=== PATIENT | female | born 1950 | race Caucasian/White ===

== ENCOUNTER 2020-03-26 17:54 | Inpatient (IN) | payer MEDICARE, OTHER ==
[~2020-03-26] VITALS: Ht 160 cm; Wt 52.2 kg
[2020-03-26] MEDS ORDERED: ONDANSETRON HCL INJ 2MG/ML 2ML 2 MG/ML VIAL IV STA (18:15)
[2020-03-26] MEDS ORDERED: DIATRIZOATE MEGL/DIATRIZOA SOD 30 ML BTL PO ONE (18:33)
[2020-03-26] MEDS ORDERED: PIPER-TAZ 3.375 GM 50 ML IV STA ×2 (19:13→20:53)
--- NOTE | 2020-03-26 19:17 | Emergency Department Note ---
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 Any updates have been documented here. Past Medical History Recent Fever: No Clinical Suspicion of Infectio: No New/Unexplained Change in Ment: No Past Medical History: Hypertension, Diabetes, COPD, CHF, MO, CAD, Anxiety, Depression, GERD, Hyperlipedemia, Chronic Kidney Disease, Osteoarthritis Other Surgery: UNKNOWN SURGICAL HISTORY Social History Smoking Cessation: Never Smoker Alcohol Use: None Any Illegal Drug Use: No Other Last Tetanus: UTD Review of Systems Review of Systems Constitutional: Reports weakness EENTM: Reports no symptoms Cardiovascular: Reports no symptoms Respiratory: Reports no symptoms Gastrointestinal: Reports nausea, Reports vomiting Genitourinary: Reports no symptoms Musculoskeletal: Reports no symptoms Integumentary: Reports no symptoms Neurological: Reports no symptoms Psychological: Reports no symptoms Endocrine: Reports no symptoms Hematological/Lymphatic: Reports no symptoms Physical Exam Related Data Allergies: Coded Allergies: Iodine and Iodide Containing Produc (Verified Allergy, Unknown, 03/26/20) gentamicin (Verified Allergy, Unknown, 03/26/20) shellfish derived (Verified Allergy, Unknown, 03/26/20) Triage Vital Signs Vital Signs Date Time Temp Pulse Resp B/P (MAP) Pulse Ox O2 Delivery O2 Flow Rate FiO2 03/26/20 18:06 98.6 129 16 117/72 100 Physical Exam CONSTITUTIONAL Constitutional: Present cachectic, Present ill appearing HENT HENT: Present mucosae dry HENT L/R: Present left ext ear normal, Present right ext ear normal EYES Eyes: Reports PERRL, Reports conjunctivae normal NECK Neck: Present ROM normal PULMONARY Pulmonary: Present effort normal, Present breath sounds normal CARDIOVASCULAR Cardiovascular: Present heart sounds normal, Present tachycardia GASTROINTESTINAL Abdominal: Present soft, Present nontender, Present bowel sounds normal GENITOURINARY Genitourinary: Present exam deferred SKIN Skin: Present warm, Present dry MUSCULOSKELETAL Musculoskeletal: Present ROM normal NEUROLOGICAL Neurological: Present alert, Present oriented x 3, Present no gross motor or sensory deficits PSYCHOLOGICAL Psychological: Present mood/affect normal, Present judgement normal Results Laboratory Lab results reviewed: Yes Laboratory comments Laboratory Tests Test 03/26/20 19:55 03/26/20 19:36 03/26/20 19:33 03/26/20 19:30 Lactic Acid Level 1.2 mmol/L (0.5-2.0) Urine Color Tracie (YELLOW) Urine Clarity Sl cloudy (CLEAR) Urine pH 5.5 (5 - 7) Urine Specific [place] 1.030 (1.010-1.025) Urine Protein 1+ (NEGATIVE) Urine Glucose (UA) Negative (NEGATIVE) Urine Ketones 2+ (NEGATIVE) Urine Blood Negative (NEGATIVE) Urine Nitrite Negative (NEGATIVE) Urine Bilirubin Large (NEGATIVE) Urine Urobilinogen 0.2 mg/dL (0.2 - 1) Urine Leukocyte Esterase Trace (NEGATIVE) Urine RBC None /HPF (0-5) Urine WBC 0-5 /HPF (0-5) Urine Epithelial Cells Rare /LPF (NONE) Urine Bacteria Many /HPF (NONE) White Blood Count 9.80 x10e3/uL (4.8-10.8) Red Blood Count 4.80 x10e6/uL (3.6-5.1) Hemoglobin 12.2 g/dL (12.0-16.0) Hematocrit 39.6 % (34.2-44.1) Mean Corpuscular Volume 82.5 fL (81-99) Mean Corpuscular Hemoglobin 25.4 pg (28-32) Mean Corpuscular Hemoglobin Concent 30.8 g/dL (31-35) Red Cell Distribution Width 17.3 % (11.7-14.4) Platelet Count 583 x10e3/uL (140-360) Neutrophils (%) (Auto) 75.2 % (38.7-80.0) Lymphocytes (%) (Auto) 15.7 % (18.0-39.1) Monocytes (%) (Auto) 7.8 % (4.4-11.3) Eosinophils (%) (Auto) 0.3 % (0.0-6.0) Basophils (%) (Auto) 0.6 % (0.0-1.0) Neutrophils # (Auto) 7.4 (2.1-6.9) Lymphocytes # (Auto) 1.5 (1.0-3.2) Monocytes # (Auto) 0.8 (0.2-0.8) Eosinophils # (Auto) 0.0 (0.0-0.4) Basophils # (Auto) 0.1 (0.0-0.1) Absolute Immature Granulocyte (auto 0.04 x10e3/uL (0-0.1) Sodium Level 142 mmol/L (136-145) Potassium Level 3.8 mmol/L (3.5-5.1) Chloride Level 103 mmol/L (98-107) Carbon Dioxide Level 18 mmol/L (22-29) Anion Gap 24.8 mmol/L (8-16) Blood Urea Nitrogen 30 mg/dL (7-26) Creatinine 1.39 mg/dL (0.57-1.11) Estimat Glomerular Filtration Rate 37 ML/MIN (60-) BUN/Creatinine Ratio 22 (6-25) Glucose Level 147 mg/dL (74-118) Calcium Level 10.6 mg/dL (8.4-10.2) Total Bilirubin 0.3 mg/dL (0.2-1.2) Aspartate Amino Transf (AST/SGOT) 14 IU/L (5-34) Alanine Aminotransferase (ALT/SGPT) 7 IU/L (0-55) Alkaline Phosphatase 119 IU/L (40-150) Creatine Kinase 15 IU/L (29-168) Creatine Kinase MB 2.00 ng/mL (0-5.0) Troponin I 0.137 ng/mL (0-0.300) Total Protein 7.7 g/dL (6.5-8.1) Albumin 2.9 g/dL (3.5-5.0) Globulin 4.8 g/dL (2.3-3.5) Albumin/Globulin Ratio 0.6 (0.8-2.0) Lipase 7 U/L (8-78) B-Type Natriuretic Peptide 825.6 pg/mL (0-100) Test 03/26/20 19:26 Imaging Imaging results reviewed: Yes [facility] [address] Patient Name: JOVITA BAXTER MR #: [id number] : 1950 Age/Sex: 69/F Req #: [id number] Adm Physician: Ordered by: FEI BULLARD DO Report #: [id number] Location: ER Room/Bed: Procedure: [id number] DX/CHEST SINGLE (PORTABLE) Exam Date: 03/26/20 Exam Time: 2100 REPORT STATUS: Signed EXAMINATION: CHEST SINGLE (PORTABLE) INDICATION: , Nausea, vomiting COMPARISON: None FINDINGS: TUBES and LINES: External electronic devices and leads project over the mid to upper chest. LUNGS: Normal lung volumes. Lungs are clear. Prominent central pulmonary vasculature. PLEURA: No pleural effusion or pneumothorax. HEART AND MEDIASTINUM: Cardiac size is mildly enlarged. Aortic calcifications. BONES AND SOFT TISSUES: No acute osseous lesion. Soft tissues are unremarkable. Degenerative changes. UPPER ABDOMEN: No free air under the diaphragm. IMPRESSION: Mild cardiomegaly and pulmonary vascular congestion. Signed by: Maximiliano Moore DO on 03/26/2020 10:37 PM Dictated By: MAXIMILIANO MOORE DO 36 Transcribed By: JAYSON on 03/26/202236 COPY TO: FEI BULLARD DO~ Procedures 12 Lead ECG Interpretation ECG Interpretation : ECG: ECG 1 [employer]: Interpreted by ED physician Date: Mar 26, 2020 Time: 19:25 Prior ECG tracings: reviewed Rhythm: sinus tachycardia Rate: tachycardia BPM: 120 Conduction: intraventricular conduction delay ST segments normal: Yes T waves normal: Yes Clinical Impression: abnormal ECG Critical Care Time Total Critical Care Time (min): 31 Critcal care necessary due to: cardiac failure Critcal care time spent by me: discussion w consultants, evaluation patient response to tx, examination of patient, order/review laboratory studies, re- evaluation of patient condition, review of old charts Assessment & Plan Medical Decision Making MDM 69 yof brought from [facility] for evaluation of intractable n/v . Patient noted to have a Life Vest. Labs UA reviewed for infectious etiology of symptoms and weakness with possible electrolyte abnormalities. Cardiology consulted for wide complex tachycardia which may be from patient's volume depletion. Plan to admit to the IMCU for monitoring and gentle hydration Reassessment Reassessment time: 19:53 Reassessment Reviewed EKG with Dr Jose Drake. EKG LBBB with Wide Complex Tachycardia. No acute cardio intervention needed at this time Assessment & Plan Final Impression: (1) Intractable nausea and vomiting (2) Dehydration (3) UTI (urinary tract infection) (4) Wide-complex tachycardia Depart Disposition: ADMITTED Last Vital Signs Date Time Temp Pulse Resp B/P (MAP) Pulse Ox O2 Delivery O2 Flow Rate FiO2 03/26/20 18:06 98.6 129 16 117/72 100 Medications in the ED Ondansetron HCl 4 mg NOW STAT IV ; Start 03/26/20 at 18:15; Stop 03/26/20 at 18:16; Status UNV Diatrizoate Meglum/ Diatrizoate Sod 30 ml STK-MED ONCE PO ; Start 03/26/20 at 18:33; Stop 03/26/20 at 18:28; Status DC ELISABET SPIVEY 19, 2020 19:17
[2020-03-26 19:55] LABS: BASOPHILS # (AUTO) 0.1 (0.0-0.1); BASOPHILS % 0.6 % (0.0-1.0); EOSINOPHILS % 0.3 % (0.0-6.0); HEMATOCRIT 39.6 % (34.2-44.1); HEMOGLOBIN 12.2 g/dL (12.0-16.0); LYMPHOCYTES # (AUTO) 1.5 (1.0-3.2); LYMPHOCYTES % 15.7 % (18.0-39.1); MEAN CORPUSCULAR HEMOGLOBIN 25.4 pg (28-32); MEAN CORPUSCULAR HGB CONC 30.8 g/dL (31-35); MEAN CORPUSCULAR VOLUME 82.5 fL (81-99); MONOCYTES # (AUTO) 0.8 (0.2-0.8); MONOCYTES % 7.8 % (4.4-11.3); NEUTROPHILS # (AUTO) 7.4 (2.1-6.9); NEUTROPHILS % 75.2 % (38.7-80.0); PLATELET COUNT 583 x10e3/uL (140-360); RED CELL DISTRIBUTION WIDTH 17.3 % (11.7-14.4)
[2020-03-26] MEDS ORDERED: PIPER-TAZ 3.375 GM 50 ML ONE (20:04)
[2020-03-26 20:05] LABS: CLARITY,URINE SL CLOUDY (CLEAR); COLOR,URINE AMBER (YELLOW)
[2020-03-26 20:06] LABS: BILIRUBIN,URINE LARGE (NEGATIVE); KETONES,URINE 2+ (NEGATIVE); LEUKOCYTE ESTERASE ,URINE TRACE (NEGATIVE); NITRITE,URINE NEGATIVE (NEGATIVE); PROTEIN,URINE DIPSTICK 1+ (NEGATIVE); URINE UROBILINOGEN 0.2 mg/dL (0.2 - 1)
[2020-03-26 20:15] LABS: ALBUMIN 2.9 g/dL (3.5-5.0); ALBUMIN/GLOBULIN RATIO 0.6 (0.8-2.0); ANION GAP 24.8 mmol/L (8-16); CALCIUM 10.6 mg/dL (8.4-10.2); CREATININE, SERUM 1.39 mg/dL (0.57-1.11); POTASSIUM 3.8 mmol/L (3.5-5.1)
[2020-03-26 20:46] LABS: BACTERIA,URINE MANY /HPF; EPITHELIAL CELLS,URINE RARE /LPF; WBC,URINE (MAN) 0-5 /HPF (0-5)
--- NOTE | 2020-03-26 22:07 | NUR ---
[employer] Life Vest contacted at this time and able to reset life vest with assistance.
--- NOTE | 2020-03-26 22:34 | NUR ---
Attempted to call the [facility] 3 times without answer. Patient has no extra battery for current life vest.
--- NOTE | 2020-03-26 22:42 | NUR ---
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
--- NOTE | 2020-03-26 22:49 | Diagnostic Imaging Report ---
EXAMINATION: CHEST SINGLE (PORTABLE) INDICATION: , Nausea, vomiting COMPARISON: None FINDINGS: TUBES and LINES: External electronic devices and leads project over the mid to upper chest. LUNGS: Normal lung volumes. Lungs are clear. Prominent central pulmonary vasculature. PLEURA: No pleural effusion or pneumothorax. HEART AND MEDIASTINUM: Cardiac size is mildly enlarged. Aortic calcifications. BONES AND SOFT TISSUES: No acute osseous lesion. Soft tissues are unremarkable. Degenerative changes. UPPER ABDOMEN: No free air under the diaphragm. IMPRESSION: Mild cardiomegaly and pulmonary vascular congestion. Signed by: Maximiliano Moore DO on 03/26/2020 10:37 PM
--- NOTE | 2020-03-26 22:50 | NUR ---
Unable to obtain emergency contact information at this time.
[2020-03-26] MEDS ORDERED: SODIUM CHLORIDE 0.9% 1000ML 1,000 ML IV SCH (23:30)
[2020-03-26] MEDS ORDERED: SODIUM CHLORIDE 0.9% 1000ML 1,000 ML IV STA (23:41)
--- NOTE | 2020-03-26 23:47 | NUR ---
Codey Rosales ()- [phone] Maximiliano Rosales (Son)- [phone]
[2020-03-27] VITALS (9 sets, daily range): BP systolic 118–144; BP diastolic 65–85
[2020-03-27 06:57] LABS: BASOPHILS # (AUTO) 0.1 (0.0-0.1); BASOPHILS % 0.7 % (0.0-1.0); EOSINOPHILS % 0.3 % (0.0-6.0); HEMATOCRIT 37.4 % (34.2-44.1); HEMOGLOBIN 11.5 g/dL (12.0-16.0); LYMPHOCYTES # (AUTO) 1.4 (1.0-3.2); LYMPHOCYTES % 15.8 % (18.0-39.1); MEAN CORPUSCULAR HEMOGLOBIN 25.3 pg (28-32); MEAN CORPUSCULAR HGB CONC 30.7 g/dL (31-35); MEAN CORPUSCULAR VOLUME 82.4 fL (81-99); MONOCYTES # (AUTO) 0.9 (0.2-0.8); MONOCYTES % 9.5 % (4.4-11.3); NEUTROPHILS # (AUTO) 6.7 (2.1-6.9); NEUTROPHILS % 73.4 % (38.7-80.0); PLATELET COUNT 528 x10e3/uL (140-360); RED BLOOD COUNT 4.54 x10e6/uL (3.6-5.1); RED CELL DISTRIBUTION WIDTH 17.4 % (11.7-14.4)
[2020-03-27 07:22] LABS: ALBUMIN 2.6 g/dL (3.5-5.0); ALBUMIN/GLOBULIN RATIO 0.6 (0.8-2.0); ANION GAP 20.9 mmol/L (8-16); CALCIUM 10.1 mg/dL (8.4-10.2); CREATININE, SERUM 1.3 mg/dL (0.57-1.11); POTASSIUM 3.9 mmol/L (3.5-5.1)
--- NOTE | 2020-03-27 08:00 | NUR ---
Dr. Yu rounding to see patient, made aware patient has been vomiting, and has not had a bowel movement in days suggested to Dr. Yu perhaps patient might need to be NPO since she is not tolerating water or juice, and has constipation per Dr. Yu patient is ok for patient to have clear liquid diet for now.
[2020-03-27] MEDS ORDERED: DEXTROSE 50% SYRINGE 50 ML IV PRN (09:15)
[2020-03-27] MEDS ORDERED: INSULIN GLARGINE 100 UNITS/ML VIAL SQ SCH (09:30)
[2020-03-27] MEDS: CLOPIDOGREL BISULFATE 75 MG TAB PO SCH (09:37)
[2020-03-27] MEDS: SODIUM CHLORIDE 0.9% 1000ML 1,000 ML IV SCH ×2 (09:37→21:49)
[2020-03-27] MEDS: PANTOPRAZOLE 40 MG 10ML VIAL IV SCH (09:37)
[2020-03-27] MEDS: SENNA-S TABLET PO SCH ×2 (09:38→18:12)
[2020-03-27] MEDS: CEFEPIME 1GM/NS 0.9% 50 ML 50 ML IV SCH ×2 (09:39→21:02)
[2020-03-27] MEDS: METOPROLOL SUCCINATE 25 MG TAB XL PO SCH (09:45)
[2020-03-27] MEDS: ESCITALOPRAM OXALATE 10 MG TAB PO SCH (09:53)
[2020-03-27] MEDS ORDERED: BISACODYL 10 MG SUPP PR ONE (10:00)
[2020-03-27] MEDS: APIXAB 2.5 MG TABLET PO SCH ×2 (10:00→18:12)
--- NOTE | 2020-03-27 10:33 | History and Physical ---
CHIEF COMPLAINT: "I have been very weak and cold." HISTORY OF PRESENT ILLNESS: This is a 69-year-old white woman, who was transferred from a local assisted facility, namely the [facility] because of generalized weakness coupled with nausea and vomiting. In the emergency room, the patient was found to have a urinary tract infection. The patient also is diabetic and has a history of diabetic gastroparesis as well as chronic constipation. In fact, the patient underwent abdominal x-ray on March 25, 2020, at the skilled facility that revealed mild increased feces throughout her colon. As previously stated in the emergency room, the patient had urinalysis done, which revealed many bacteria, but only 0-5 white blood cells per high-power field. The patient's white blood cell count in the emergency room was 9800 with 75% segmented neutrophils. The patient's BUN and creatinine in the emergency room were 30 and 1.39 respectively. The patient's B-type natriuretic peptide level was 825, which is elevated. The patient's troponin I was normal at 0.137. The patient's lipase was normal. Chest film performed in the emergency room did reveal mild cardiomegaly with pulmonary vascular congestion. The patient denies any shortness of breath, or cough. Her main complaint is constipation as well as nausea and vomiting. However, this morning, the patient is adamant about drinking liquids, even though she is still vomiting. REVIEW OF SYSTEMS: GENERAL: The patient states in the last 6 weeks, she has lost 25 pounds. Complain shaking chills past few days. Denies any fever. States that she has become globally weak in the last few days. The patient states she has not ambulated since 2017. HEENT: No headaches. No vision changes. CARDIOVASCULAR/RESPIRATORY: The patient states she has asthma. Denies any chest pain, shortness of breath, or cough. GI: Complains of nausea, vomiting for at least a week. She has chronic constipation. Denies any melena or hematochezia. : Denies any UTI symptoms, but she states that her urine has been darker lately and malodorous. The patient states she is incontinent. NEUROMUSCULAR: She has been predominantly bed-bound, wheelchair-bound since 2017. She has chronic wounds in her bilateral heels. ALLERGIES: 1. IODINE. 2. GENTAMICIN. FAMILY HISTORY: No family history of diabetes mellitus. SOCIAL HISTORY: The patient states she is , but currently she is staying at a local assisted facility, namely the [facility]. No history of tobacco or alcohol use. PAST MEDICAL HISTORY: 1. Type 2 diabetes mellitus. 2. Diabetic gastroparesis. 3. Stage 3 chronic kidney disease. 4. Chronic bronchitis. 5. Hypertensive heart disease. 6. Chronic diastolic congestive heart failure. 7. Depression. 8. Anxiety disorder. 9. GERD. 10. Dyslipidemia. 11. Generalized osteoarthritis. 12. Chronic bilateral heel ulcers. 13. Peripheral artery disease. PAST SURGICAL HISTORY: 1. Umbilical hernia repair. 2. Right second toe amputation. 3. Left first and second toe amputation. 4. History of arterial stent placement in the bilateral lower extremities. HOME MEDICATIONS: 1. Apixaban 2.5 mg b.i.d. 2. Bisacodyl suppository 1 daily as needed for constipation. 3. Budesonide nebulized treatments twice a day. 4. Clonazepam 0.5 mg once daily as needed for severe anxiety. 5. Clopidogrel 75 mg daily. 6. Depakote 125 mg b.i.d. 7. Vitamin D two 50,000 units once a week. 8. Famotidine 20 mg once daily. 9. Gabapentin 100 mg b.i.d. 10. Humalog insulin sliding scale. 11. Mirtazapine 15 mg at bedtime. 12. Ipratropium/albuterol nebulized treatments twice a day as needed for shortness of breath or wheezing. 13. Lactulose 20 g every 6 hours as needed for constipation. 14. Levalbuterol nebulized treatments every 6 hours as needed for breakthrough shortness of breath or wheezing. 15. Lexapro 10 mg daily. 16. Loratadine 10 mg daily. 17. Melatonin 5 mg at bedtime p.r.n. insomnia. 18. Metoprolol succinate 12.5 mg daily. 19. Midodrine 5 mg daily as needed for hypotension. 20. Multivitamin once daily. 21. Pepto-Bismol one dose every 6 hours as needed for nausea and vomiting. 22. Phenergan 12.5 mg intramuscular every 8 hours for severe nausea and vomiting. 23. Protonix 40 mg daily. 24. Senna 8.6 mg every night as needed for constipation. 25. Spironolactone 12.5 mg daily. 26. Tramadol 50 mg every 12 hours p.r.n. nausea and vomiting. 27. Acetaminophen 650 mg every 4 hours p.r.n. pain. 28. Vitamin C 500 mg daily. 29. Zofran 8 mg one every 6 hours nausea and vomiting. PHYSICAL EXAMINATION: GENERAL: She is awake, alert. She looks chronically ill. She also looks very weak. She is oriented to herself and place, not time. She does seem to get confused easily. She does look depressed. She has a flat affect. She is very pleasant and cooperative on exam. Does not appear to be any obvious pain. VITAL SIGNS: Blood pressure is 126/78, pulse 104 (sinus rhythm), respiratory rate is 22, oxygen saturation 98% on room air, and temperature 98.1, height 5 feet 3 inches, weight 115 pounds, BMI 20 (patient states she weighed 140 pounds 6 weeks ago). INTEGUMENT: Skin is warm and dry. She is pale. No jaundice or diaphoresis. The patient has right heel unstageable eschar wound. The left heel has an ulcer that has adequate granulation tissue and does not appear to be infected. HEENT: Anicteric sclerae with dry mucous membranes. The patient is edentulous. NECK: Supple. No evidence of jugular venous distention. CARDIOVASCULAR: Distant heart sounds. Tachycardic rate with regular rhythm. The patient has S3 gallop. LUNGS: No rales. No rhonchi or wheezes. ABDOMEN: Soft. Normal bowel sounds. Nontender. EXTREMITIES: No edema in legs. The patient has bony deformities over feet consistent with diabetic osteopathy. She has evidence of toe amputations bilaterally. She has wounds in the bilateral heels as previously stated. Unstageable eschar covered wound in the right heel. Has a left heel ulcer that has adequate granulation tissue. No obvious purulent sloughing or fibrinous tissue is appreciated. NEUROLOGIC: She is bedbound. No gross deficits. She does not have decreased pinprick sensation in her feet. DIAGNOSES: 1. Sepsis secondary to urinary tract infection, likely. 2. Ghcmo-hl-lzhxtrt renal insufficiency. 3. Type 2 diabetes mellitus. 4. Diabetic gastroparesis. 5. Chronic constipation. 6. Orvin-fe-lubaupz diastolic heart failure. 7. Paroxysmal atrial fibrillation. PLAN: 1. Gentle intravenous fluids. 2. Order echocardiogram and cardiac enzymes. 3. Follow urine blood cultures. 4. Start intravenous cefepime for the patient's urinary tract infection. 5. Glucose control. 6. Monitor electrolytes and renal function. 7. Restart apixaban since the patient has paroxysmal atrial fibrillation. 8. Restart clopidogrel since the patient has peripheral artery disease and likely coronary artery disease. 9. Rule out myocardial infarction. 10. Wound care to the patient's heels. 11. We will restart metoprolol succinate for heart rate control and to treat her diastolic heart failure. 12. We will start laxatives that include senna by mouth twice a day and Dulcolax suppository since the patient has chronic constipation and significant amount of stool burden in her colon. I spent 75 minutes in the care of this IMCU patient. MD DARIUS Campos/MIHAELA /[id number] MTDD
[2020-03-27 10:43] LABS: MAGNESIUM 1.7 MG/DL (1.3-2.1)
[2020-03-27] MEDS: INSULIN LISPRO 100 UNIT/1 ML 3ML VIAL SQ SCH ×3 (11:30→20:52)
[2020-03-27] MEDS: PROMETHAZINE 12.5MG/ NACL 0.9% 12.5 MG/50 ML BAG IV PRN ×2 (13:20→19:04)
[2020-03-27] MEDS ORDERED: DEPAKOTE125 MG PO (14:14)
[2020-03-27] MEDS ORDERED: VITAMIN D250 MC1 PO (14:14)
[2020-03-27] MEDS ORDERED: BUDESONIDE0.5 MG/2 M NEB (14:14)
[2020-03-27] MEDS ORDERED: CLONAZEPAM0.5 MG PO (14:14)
[2020-03-27] MEDS ORDERED: FAMOTIDINE20 MG PO (14:14)
[2020-03-27] MEDS ORDERED: DULCOLAX SUPP10 MG RC (14:14)
[2020-03-27] MEDS ORDERED: PLAVIX75 MG PO (14:14)
[2020-03-27] MEDS ORDERED: ELIQUIS2.5 MG PO (14:14)
[2020-03-27] MEDS ORDERED: PEPTO-BISM262 MG/15 PO (14:40)
[2020-03-27] MEDS ORDERED: LEVALBUTER0.63 MG/3 NEB (14:40)
[2020-03-27] MEDS ORDERED: MELATONIN3 MG PO (14:40)
[2020-03-27] MEDS ORDERED: MULTI-VITAMIN1 EACH (14:40)
[2020-03-27] MEDS ORDERED: LORATADINE10 MG PO (14:40)
[2020-03-27] MEDS ORDERED: METOPROLOL SUCC25 MG PO (14:40)
[2020-03-27] MEDS ORDERED: GABAPENTIN100 MG PO (14:40)
[2020-03-27] MEDS ORDERED: Ergocalciferol PO (14:40)
[2020-03-27] MEDS ORDERED: LEXAPRO5 MG PO (14:40)
[2020-03-27] MEDS ORDERED: PROMETHAZI25 MG/1 ML IM (14:40)
[2020-03-27] MEDS ORDERED: LEXAPRO10 MG PO (14:40)
[2020-03-27] MEDS ORDERED: LACTULOSE20 GM/30 M PO (14:40)
[2020-03-27] MEDS ORDERED: MIRTAZAPINE15 MG PO (14:40)
[2020-03-27] MEDS ORDERED: MIDODRINE HCL5 MG PO (14:40)
[2020-03-27] MEDS ORDERED: IPRAT-ALBUT 0.5-3 ML INH (14:56)
[2020-03-27] MEDS ORDERED: HUMALOG100 UNIT/3 (15:02)
[2020-03-27] MEDS ORDERED: APIXAB 2.5 MG TABLET PO SCH (17:00)
--- NOTE | 2020-03-27 19:31 | NUR ---
Called Dr. Yu made aware patient did not void but had approximately 1200 emesis throughout the day, patient is on IV fluids @100cc per hour. received orders to insert Gaytan catheter for output measurements
--- NOTE | 2020-03-27 19:57 | NUR ---
insert Gaytan catheter size 16 Fr with 10 cc water balloon.
[2020-03-27] MEDS: INSULIN GLARGINE 100 UNITS/ML VIAL SQ SCH (20:53)
[2020-03-27] MEDS: MIRTAZAPINE 15 MG TAB PO SCH (21:02)
[2020-03-28] VITALS (7 sets, daily range): BP systolic 120–146; BP diastolic 65–76
[2020-03-28 06:05] LABS: BASOPHILS # (AUTO) 0.1 (0.0-0.1); BASOPHILS % 0.7 % (0.0-1.0); EOSINOPHILS # (AUTO) 0.1 (0.0-0.4); EOSINOPHILS % 1.8 % (0.0-6.0); HEMATOCRIT 36.1 % (34.2-44.1); LYMPHOCYTES # (AUTO) 1.1 (1.0-3.2); MEAN CORPUSCULAR HEMOGLOBIN 25.8 pg (28-32); MEAN CORPUSCULAR HGB CONC 30.5 g/dL (31-35); MEAN CORPUSCULAR VOLUME 84.7 fL (81-99); MONOCYTES # (AUTO) 0.7 (0.2-0.8); MONOCYTES % 10.6 % (4.4-11.3); NEUTROPHILS # (AUTO) 4.8 (2.1-6.9); NEUTROPHILS % 70.6 % (38.7-80.0); PLATELET COUNT 452 x10e3/uL (140-360); RED BLOOD COUNT 4.26 x10e6/uL (3.6-5.1); RED CELL DISTRIBUTION WIDTH 17.3 % (11.7-14.4)
[2020-03-28] MEDS: MORPHINE SULFATE 2 MG/ML SYR 1ML IV PRN ×2 (06:10→20:40)
[2020-03-28 06:27] LABS: ALBUMIN 2.4 g/dL (3.5-5.0); ALBUMIN/GLOBULIN RATIO 0.6 (0.8-2.0); ALKALINE PHOSPHATASE 81 IU/L (40-150); ANION GAP 15.4 mmol/L (8-16); BLOOD UREA NITROGEN 26 mg/dL (7-26); BUN/CREATININE RATIO 26 (6-25); CALCIUM 9.3 mg/dL (8.4-10.2); CARBON DIOXIDE 21 mmol/L (22-29); CHLORIDE 114 mmol/L (98-107); CREATININE, SERUM 0.99 mg/dL (0.57-1.11); EST GLOMERULAR FILTRATION RATE 55 ML/MIN (60-); GLUCOSE 80 mg/dL (74-118); POTASSIUM 3.4 mmol/L (3.5-5.1); SODIUM 147 mmol/L (136-145)
[2020-03-28 06:32] LABS: ALANINE AMINOTRANSFERASE < 6 IU/L (0-55)
[2020-03-28] MEDS: SODIUM CHLORIDE 0.9% 1000ML 1,000 ML IV SCH (07:30)
[2020-03-28] MEDS: INSULIN LISPRO 100 UNIT/1 ML 3ML VIAL SQ SCH ×4 (07:30→21:00)
[2020-03-28] MEDS: ONDANSETRON HCL INJ 2MG/ML 2ML 2 MG/ML VIAL IV PRN (07:33)
[2020-03-28] MEDS ORDERED: POTASSIUM CHLORIDE 20MEQ/100ML 100 ML IV ONE ×2 (08:30→15:15)
[2020-03-28] MEDS ORDERED: ESCITALOPRAM OXALATE 10 MG TAB PO SCH (09:00)
[2020-03-28] MEDS: ESCITALOPRAM OXALATE 10 MG TAB PO SCH (09:00)
[2020-03-28] MEDS: PANTOPRAZOLE 40 MG 10ML VIAL IV SCH ×3 (09:13→20:40)
[2020-03-28] MEDS: APIXAB 2.5 MG TABLET PO SCH ×2 (09:14→19:36)
[2020-03-28] MEDS: PROMETHAZINE 12.5MG/ NACL 0.9% 12.5 MG/50 ML BAG IV PRN (09:30)
[2020-03-28] MEDS: CEFEPIME 1GM/NS 0.9% 50 ML 50 ML IV SCH ×2 (09:31→21:43)
[2020-03-28] MEDS: METOPROLOL SUCCINATE 25 MG TAB XL PO SCH (09:33)
[2020-03-28] MEDS ORDERED: POTASSIUM CHLORIDE 10MEQ EA PO ONE (10:30)
--- NOTE | 2020-03-28 11:19 | Diagnostic Imaging Report ---
EXAMINATION: CHEST SINGLE (PORTABLE) COMPARISON: Chest x-ray 03/26/2020 INDICATION: ^COPD and CHF ^[id number] ^1040 ^Y DISCUSSION: Frontal view of the chest obtained at 1047 hours. HEART AND MEDIASTINUM: The heart is top normal in size. LINES: Multiple cardiac medical devices overlie the left hemithorax. External cardiac leads overlie the right chest. LUNGS/PLEURA: Diffuse hyperinflation. Poor visualization of the left diaphragm. No interstitial edema or vascular congestion. No large effusions. No pneumothorax. BONES AND SOFT TISSUES: The bones are diffusely demineralized. The soft tissues are normal. IMPRESSION: 1. Retrocardiac airspace opacity suggestive of atelectasis or infiltrate. Small effusion cannot be excluded. No evidence of CHF. 2. Pulmonary hyperinflation suggestive of COPD. Signed by: Dr. Virgilio Jackson MD on 03/28/2020 11:15 AM
--- NOTE | 2020-03-28 11:20 | Diagnostic Imaging Report ---
Abdomen/KUB INDICATION: ^fecal impaction ^[id number] ^1040 ^Y COMPARISON: None. FINDINGS: Portable, supine image obtained at 1047 hours. Medical Devices: External cardiac devices in the lower chest Bowel: Unremarkable bowel gas pattern. No dilated bowel loops. Moderate burden of stool in the right colon and rectum. No pneumatosis. Free air: None Abdominal calcifications: None Organomegaly: None Lung bases: Poor visualization of the left diaphragm. Right lung base is clear. Bones: Diffuse demineralization. Degenerative changes of the spine. Trace degenerative changes of the hips. IMPRESSION: Moderate stool burden in the large bowel without evidence of obstruction. Signed by: Dr. Virgilio Jackson MD on 03/28/2020 11:17 AM
[2020-03-28] MEDS: METOCLOPRAMIDE HCL 10 MG/2ML VIAL IV SCH ×4 (11:31→20:40)
--- NOTE | 2020-03-28 11:36 | Progress Note ---
DATE: 03/28/2020 CHIEF COMPLAINT/HISTORY OF PRESENT ILLNESS: This is a 69-year-old white woman, whose primary treating diagnosis is urinary tract infection and acute on chronic renal insufficiency. The patient also has underlying type 2 diabetic gastroparesis, chronic constipation and paroxysmal atrial fibrillation. Moreover, she is experiencing acute on chronic systolic and diastolic heart failure. The patient denies any shortness of breath or chest pain. The patient states she does feel better today. She still has intermittent episodes of vomiting, but denies any nausea at this time. Blood work today revealed white blood cell count of 6800 with 70% segmented neutrophils. Hemoglobin 11 g/dL today. The patient's BUN and creatinine today is 26 and 0.99 respectively. The patient's potassium is 3.4, serum bicarb is 21. The patient had serial cardiac enzymes drawn in the last couple of days, namely troponin I and they have been negative. The patient's TSH was low at 0.033. Echocardiogram yesterday revealed LV EF less than 20%. REVIEW OF SYSTEMS: As per HPI. PHYSICAL EXAMINATION: GENERAL: She is more alert and interactive today. She still gets confused easily. She does not appear to be any distress. She is very distressed. She is very pleasant and cooperative on exam. VITAL SIGNS: Blood pressure is 134/68, pulse 94, it is regular, temp 97.2, respiratory rate 16, oxygen saturation 98% on room air. Height 5 feet 3 inches, weight 115 pounds, BMI 20. INTEGUMENT: Skin is warm and dry. She is slight pallor, but no jaundice or diaphoresis appreciated. HEENT: Anicteric sclerae. Moist mucous membranes. She is edentulous. NECK: Supple. No evidence of jugular venous distention. CARDIOVASCULAR: Distant heart sounds. Tachycardic rate with a regular rhythm. The patient has S3 gallop. She is wearing Life Vest. LUNGS: No rales. No rhonchi or wheezes. ABDOMEN: Soft. Normal bowel sounds, nontender. EXTREMITIES: No edema, but she has evidence of toe amputations bilaterally. The patient has unstageable eschar covered also on the right heel and has a left heel ulcer that has adequate granulation tissue. NEUROLOGIC: She is bedbound. No gross deficits appreciated. DIAGNOSES: 1. Urinary tract infection. 2. Acute on chronic renal insufficiency, resolving. 3. Type 2 diabetes mellitus. 4. Diabetic gastroparesis. 5. Chronic constipation. 6. Acute on chronic systolic/diastolic heart failure (EF less than 20%). 7. Paroxysmal atrial fibrillation. 8. Physical debility. PLAN: 1. We will discontinue intravenous fluids. 2. Wound care for heel wounds. 3. We will continue oral Eliquis for anticoagulation. 4. Continue antiemetics. 5. Continue laxatives for patient's constipation. 6. Start IV metoclopramide (prokinetic agent) for her gastroparesis. 7. Follow urine and blood cultures. 8. Continue intravenous antibiotics for patient's urinary tract infection. 9. Blood glucose control. I spent 30 minutes in the care of this patient. MD DARIUS Campos/MIHAELA /[id number] MTDD
--- NOTE | 2020-03-28 12:00 | NUR ---
Pt with frequent small amount emesis. Issues taking po medications with refusal and emesis. Dr Yu has been notified. Orders received.
[2020-03-28] MEDS: POTASSIUM CHLORIDE 20MEQ/100ML 100 ML IV ONE ×2 (12:15→15:26)
[2020-03-28] MEDS: SENNA-S TABLET PO SCH ×2 (12:30→19:36)
--- NOTE | 2020-03-28 12:45 | NUR ---
Order to dc the telemetry, but Dr Yu has advised he does not want the telemetry discontinued. Cont the monitor car operator.
[2020-03-28] MEDS: CLOPIDOGREL BISULFATE 75 MG TAB PO SCH (14:48)
[2020-03-28] MEDS: INSULIN GLARGINE 100 UNITS/ML VIAL SQ SCH (21:00)
[2020-03-28] MEDS: MIRTAZAPINE 15 MG TAB PO SCH (21:00)
[2020-03-29] VITALS (8 sets, daily range): BP systolic 119–140; BP diastolic 66–76
--- NOTE | 2020-03-29 01:19 | Consultation ---
DATE OF CONSULTATION: 03/27/2020 Cardiology Consult Note REASON FOR CONSULT: CHF, atrial fibrillation, and tachycardia. CHIEF COMPLAINT: Could not be obtained due to altered mental status. HISTORY OF PRESENT ILLNESS: The patient is a 69-year-old female with history of coronary artery disease, status post [place] and chronic systolic CHF, currently wearing a LifeVest, who presents from her nursing facility with altered mental status, suspected infection and tachycardia. The patient is altered and unable to obtain a detailed history. REVIEW OF SYSTEMS: Could not be obtained. PAST MEDICAL HISTORY: As stated above. SOCIAL HISTORY: Does not smoke, drink, or abuse drugs per the medical records. FAMILY HISTORY: Noncontributory. OUTPATIENT MEDICATIONS: Reviewed. ALLERGIES: REVIEWED. OBJECTIVE: VITAL SIGNS: Temperature afebrile, pulse 107, respiratory rate 14, blood pressure 143/74, and saturating 99% on room air. GENERAL: Elderly female, in no acute distress. CARDIOVASCULAR: Regular rate and rhythm. No murmurs, rubs, or gallops. LUNGS: Coarse breath sounds bilaterally. ABDOMEN: Soft, nontender, and nondistended. NEURO AND PSYCH: Disoriented. INPATIENT MEDICATIONS: Reviewed. LABORATORY DATA: Reviewed. Troponin is negative. BNP is 825. Telemetry data reviewed shows left bundle branch block, sinus tachycardia. ASSESSMENT: 1. Coronary artery disease, status post myocardial infarction. 2. Chronic systolic congestive heart failure. 3. Wearing a LifeVest. 4. Sinus tachycardia. PLAN: Echocardiogram is pending. Continue telemetry monitoring. Continue LifeVest treatment of infection and nausea, vomiting per primary team, ruled out for acute [place] with serial troponins appears euvolemic by exam. We will continue to monitor volume status closely. Thank you for this consult. We will continue to follow. MD SHIRLEY Mcdaniel/MIHAELA /[id number]
--- NOTE | 2020-03-29 01:39 | Progress Note ---
DATE: 03/28/2020 Cardiology Progress Note SUBJECTIVE: No major events overnight. Appears a little more oriented today. OBJECTIVE: VITAL SIGNS: Temperature afebrile, pulse 94, respiratory rate 17, blood pressure 127/67, saturating 96% on room air. GENERAL: An elderly female, in no acute distress. CARDIOVASCULAR: Regular rate and rhythm. No murmurs, rubs, or gallops. LUNGS: Clear to auscultation bilaterally. ABDOMEN: Soft, nontender, nondistended. NEURO AND PSYCH: Alert and oriented. INPATIENT MEDICATIONS: Reviewed. LABORATORY DATA: Reviewed. Troponins negative. TELEMETRY DATA: Reviewed, normal sinus rhythm. Left bundle branch block. ASSESSMENT AND PLAN: 1. Chronic systolic congestive heart failure, ejection fraction of 20% to 25%. 2. Coronary artery disease, status post myocardial infarction. PLAN: Continue like this. Continue telemetry monitoring. Replete electrolytes to keep potassium above 4. We will continue to monitor volume status. Thank you for this consult. We will continue to follow. MD SHIRLEY Mcdaniel/REECEL /[id number]
[2020-03-29 05:26] LABS: BASOPHILS # (AUTO) 0.1 (0.0-0.1); BASOPHILS % 0.7 % (0.0-1.0); EOSINOPHILS # (AUTO) 0.1 (0.0-0.4); EOSINOPHILS % 1.4 % (0.0-6.0); HEMATOCRIT 38.8 % (34.2-44.1); HEMOGLOBIN 11.2 g/dL (12.0-16.0); LYMPHOCYTES # (AUTO) 1.3 (1.0-3.2); LYMPHOCYTES % 15.2 % (18.0-39.1); MEAN CORPUSCULAR HEMOGLOBIN 25.5 pg (28-32); MEAN CORPUSCULAR HGB CONC 28.9 g/dL (31-35); MEAN CORPUSCULAR VOLUME 88.2 fL (81-99); MONOCYTES # (AUTO) 0.8 (0.2-0.8); MONOCYTES % 9.1 % (4.4-11.3); NEUTROPHILS # (AUTO) 6.4 (2.1-6.9); NEUTROPHILS % 73.3 % (38.7-80.0); PLATELET COUNT 400 x10e3/uL (140-360); RED CELL DISTRIBUTION WIDTH 17.7 % (11.7-14.4)
[2020-03-29 05:35] LABS: ALBUMIN 2.4 g/dL (3.5-5.0); ALBUMIN/GLOBULIN RATIO 0.6 (0.8-2.0); ANION GAP 20.4 mmol/L (8-16); CALCIUM 9.6 mg/dL (8.4-10.2); CREATININE, SERUM 0.92 mg/dL (0.57-1.11); POTASSIUM 4.4 mmol/L (3.5-5.1)
--- NOTE | 2020-03-29 06:45 | NUR ---
patient condition through the shift was stable patient endorsed to next shift for continuity of care.
--- NOTE | 2020-03-29 07:00 | NUR ---
BEDSIDE SHIFT REPORT FROM DIRECT SERVICE PROVIDER, MATTIE RICE. PT DENIES NEEDS AT THIS TIME.
[2020-03-29] MEDS: INSULIN LISPRO 100 UNIT/1 ML 3ML VIAL SQ SCH ×4 (07:30→21:00)
[2020-03-29] MEDS: PANTOPRAZOLE 40 MG 10ML VIAL IV SCH ×2 (09:08→21:26)
[2020-03-29] MEDS: METOPROLOL SUCCINATE 25 MG TAB XL PO SCH (09:09)
[2020-03-29] MEDS: APIXAB 2.5 MG TABLET PO SCH ×2 (09:09→17:24)
[2020-03-29] MEDS: METOCLOPRAMIDE HCL 10 MG/2ML VIAL IV SCH ×3 (09:09→21:26)
[2020-03-29] MEDS: ESCITALOPRAM OXALATE 10 MG TAB PO SCH (09:09)
[2020-03-29] MEDS: CLOPIDOGREL BISULFATE 75 MG TAB PO SCH (09:09)
[2020-03-29] MEDS: SENNA-S TABLET PO SCH ×2 (09:09→17:24)
[2020-03-29] MEDS: CEFEPIME 1GM/NS 0.9% 50 ML 50 ML IV SCH (09:26)
[2020-03-29] MEDS: ONDANSETRON HCL INJ 2MG/ML 2ML 2 MG/ML VIAL IV PRN (10:19)
[2020-03-29] MEDS: MORPHINE SULFATE 2 MG/ML SYR 1ML IV PRN ×2 (10:19→16:10)
[2020-03-29] MEDS: DAPTOMYCIN 500mg 10ML 400 MG in SODIUM CHLORIDE 0.9% 100 ML IV SCH (12:11)
--- NOTE | 2020-03-29 12:25 | NUR ---
CONSULT CALLED IN TO HECTOR CEJA.,
--- NOTE | 2020-03-29 12:34 | NUR ---
PT IS FROM [facility], "LEIDA" CLARISSA STATES HE WANTS HER TO RETURN THERE WHEN READY, AND SIGNED CHOICE. FILED IN CHART FOR WHEN READY TO FAX CLINICALS.
--- NOTE | 2020-03-29 14:53 | Progress Note ---
DATE: 03/29/2020 Cardiology Progress Note SUBJECTIVE: The patient denies shortness of breath. She reports an episode of chest pain earlier today. OBJECTIVE: VITAL SIGNS: Temperature 97.7 degrees, pulse 96, respiratory rate 17, blood pressure 123/66, and oxygen saturation 99%. GENERAL: Thin, frail, elderly woman, in no acute distress. Awake and alert. LUNGS: Clear to auscultation bilaterally. No wheezes or crackles. CARDIOVASCULAR: Normal rate. Regular rhythm. No murmur. Normal S1 and S2. ABDOMEN: Soft and nontender. EXTREMITIES: No edema. CARDIAC MEDICATIONS: Apixaban 2.5 mg p.o. b.i.d., Plavix 75 mg p.o. daily, and metoprolol succinate 25 mg p.o. daily. LABORATORY DATA: WBC 8.75, hemoglobin 11.2, hematocrit 38.8, and platelets 400. Sodium 144, potassium 4.4, chloride 113, CO2 15, BUN 21, and creatinine 0.92. Telemetry was personally reviewed and interpreted, revealing normal sinus rhythm with nonsustained ventricular tachycardia. IMPRESSION: 1. Chronic systolic heart failure, left ventricular ejection fraction 20% to 25%. 2. Coronary artery disease, status post myocardial infarction. 3. Paroxysmal atrial fibrillation. 4. Urinary tract infection. 5. Sepsis secondary to above. 6. [id number]-[id number] kidney disease. 7. Diabetes mellitus complicated by diabetic gastroparesis. RECOMMENDATIONS: Monitor and replete electrolytes. Keep potassium above 4 and magnesium above 2. Monitor the patient on telemetry. Continue current cardiac medications. Monitor volume status closely. Antibiotics per primary service. Thank you for this consult. We will continue to follow. Connie Jane MD ABS/MODL /[id number]
--- NOTE | 2020-03-29 15:29 | NUR ---
DR. RAE CALLED FOR CONSULTATION.
--- NOTE | 2020-03-29 15:41 | NUR ---
INITIAL WOUND CARE NURSE CONSULTATION. 69 YEAR OLD FEMALE ADMITTED TO [facility] WITH DX OF DEHYDRATION, UTI AND INTRACTABLE N/V. HEAD TO TOE SKIN ASSESSMENT PERFORMED TODAY. PT PRESENTS WITH A 6.3X8.2X0.1CM UNSTAGEABLE PRESSURE ULCER TO RIGHT HEEL. 100% NECROTIC ESCHAR. LEFT HEEL PRESENTS WITH A 4.5X5X0.1CM STAGE IV PRESSURE ULCER.95% GRANULAR, 5% ESCHAR & PALPABLE BONE. THERE ARE NO OTHER AREAS OF CONCERN NOTED AT THIS TIME. NO S/S OF INFECTION. LABS: WBC: 8.75 ALB: 2.4 GLUCOSE: 132 MEDS: CEFEPIME IV. RECOMMENDATIONS: APPLY MAXORB AG TO RIGHT HEEL, COVER WITH 4X4 GAUZE AND KERLIX, CHANGE DRESSING DAILY. CLEAN LEFT HEEL WITH NS, APPLY PURACOL/FIBRACOL TO WOUND BED AND COVER WITH 4X4 GAUZE, KERLIX AND TAPE. REPOSITION PT EVERY 2 HOURS AND PRN. CONTINUE WITH BILATERAL HEEL PROTECTORS AND PILLOW SUSPENSIONS. CONTINUE WITH ALTERNATING LOW AIR LOSS MATTRESS. THANKS FOR THIS CONSULTATION. Addendum: 03/29/20 at 1552 by Kelly Ferreira RN Amended: Links added.
--- NOTE | 2020-03-29 17:34 | NUR ---
ALLERGIES: 1. IODINE. 2. GENTAMICIN. FAMILY HISTORY: No family history of diabetes mellitus. SOCIAL HISTORY: The patient states she is , but currently she is staying at a local shelter facility, namely the [facility]. No history of tobacco or alcohol use. PAST MEDICAL HISTORY: 1. Type 2 diabetes mellitus. 2. Diabetic gastroparesis. 3. Stage 3 chronic kidney disease. 4. Chronic bronchitis. 5. Hypertensive heart disease. 6. Chronic diastolic congestive heart failure. 7. Depression. 8. Anxiety disorder. 9. GERD. 10. Dyslipidemia. 11. Generalized osteoarthritis. 12. Chronic bilateral heel ulcers. 13. Peripheral artery disease. PAST SURGICAL HISTORY: 1. Umbilical hernia repair. 2. Right second toe amputation. 3. Left first and second toe amputation. 4. History of arterial stent placement in the bilateral lower extremities. HOME MEDICATIONS: 1. Apixaban 2.5 mg b.i.d. 2. Bisacodyl suppository 1 daily as needed for constipation. 3. Budesonide nebulized treatments twice a day. 4. Clonazepam 0.5 mg once daily as needed for severe anxiety. 5. Clopidogrel 75 mg daily. 6. Depakote 125 mg b.i.d. 7. Vitamin D two 50,000 units once a week. 8. Famotidine 20 mg once daily. 9. Gabapentin 100 mg b.i.d. 10. Humalog insulin sliding scale. 11. Mirtazapine 15 mg at bedtime. 12. Ipratropium/albuterol nebulized treatments twice a day as needed for shortness of breath or wheezing. 13. Lactulose 20 g every 6 hours as needed for constipation. 14. Levalbuterol nebulized treatments every 6 hours as needed for breakthrough shortness of breath or wheezing. 15. Lexapro 10 mg daily. 16. Loratadine 10 mg daily. 17. Melatonin 5 mg at bedtime p.r.n. insomnia. 18. Metoprolol succinate 12.5 mg daily. 19. Midodrine 5 mg daily as needed for hypotension. 20. Multivitamin once daily. 21. Pepto-Bismol one dose every 6 hours as needed for nausea and vomiting. 22. Phenergan 12.5 mg intramuscular every 8 hours for severe nausea and vomiting. 23. Protonix 40 mg daily. 24. Senna 8.6 mg every night as needed for constipation. 25. Spironolactone 12.5 mg daily. 26. Tramadol 50 mg every 12 hours p.r.n. nausea and vomiting. 27. Acetaminophen 650 mg every 4 hours p.r.n. pain. 28. Vitamin C 500 mg daily. 29. Zofran 8 mg one every 6 hours nausea and vomiting. [id number]
--- NOTE | 2020-03-29 17:37 | NUR ---
Nutrition Intervention Note RD Recommendation(s) for Physician: -Recommend continuing current diet as ordered - Recommend Franco BID as well as zinc and vitamin C for wound healing -Recommend Glucerna nutrition supplement BID for added nutrition Plan of Care: RD following, monitoring for tolerance and adequacy, oral supplement recommendation Nutrition reason for involvement: Nutrition Risk Trigger (MST 3) and pressure ulcer RD Assessment (03/29/20) Pt is a 69 year old female admitted with dehydration, UTI, and intractable N/V. Pt was sleeping at time of visit; therefore, spoke to family member at bedside who reported pt has been eating <50% of meals for > 1 month. Family member also stated pt had lost weight and used to weigh 140 lbs, but he was unsure of timeframe of weight loss. Recommend Franco BID as well as zinc and vitamin C for wound healing and Glucerna nutrition supplement BID for added nutrition. Will continue to montitor Principal Problems/Diagnoses: dehydration, UTI, intractable N/V PMH: Type 2 diabetes mellitus, Diabetic gastroparesis, Stage 3 chronic kidney disease, Chronic bronchitis, Hypertensive heart disease, Chronic diastolic congestive heart failure, Depression, Anxiety disorder, GERD, Dyslipidemia, Generalized osteoarthritis, Chronic bilateral heel ulcers, Peripheral artery disease. I/O: 200/2400 GI: soft, large, tender abdomen, last recorded BM 03/28 Skin: right heel unstageable pressure ulcer, left heel stage 4 pressure ulcer Labs: (03/29/20) Na 144, K 4.4, BUN 21, Cr 0.92, Glu 118 Meds: antibiotic, morphine, zofran, reglan, senokot, metoprolol, protonix, insulin Ht: 63 inches Wt: 115 lbs BMI: 20.4 kgm2 IBW: 115 lbs Malnutrition Evaluation (03/29/20) The patient does not meet criteria for a specified degree of malnutrition at this time. Will re-evaluate at follow-up as appropriate. Energy intake: <75% of estimated energy requirements for >1 month Weight loss: Unable to assess timeframe unknown Fat loss: unable to evaluate Muscle loss: unable to evaluate Supporting Evidence: Fluid accumulation: unable to evaluate Functional Status: unable to evaluate Nutrition Prescription (Diet Order): 1999 ADA Estimated Nutritional Needs: 6986-7205 calories/day (25-35 kcal/kg CBW) 63-78 g protein/day (1.2-1.5 g pro/kg CBW) Diet Adequacy: Not meeting calorie needs, Not meeting protein needs Tolerance: family member reports pt has been having N/V Diet Education Needs Assessment: Diet education not indicated Nutrition Care Level: moderate Nutrition Diagnosis: Inadequate energy intake related to decreased ability to consume sufficient energy as evidenced by pt eating <50% of meals for > 1 month per family member. Goal: Patient will meet 75-100% of estimated needs by follow up Progress: N/A Interventions: Carbohydrate- modified diet, Commercial beverage, Multivitamin/mineral supplement therapy Monitoring/Evaluation: -Total energy intake, Total protein intake, Modified diet, Liquid supplement, Weight change Signed: Denae Earl RD, LD
[2020-03-29] MEDS: MIRTAZAPINE 15 MG TAB PO SCH (21:00)
[2020-03-29] MEDS: INSULIN GLARGINE 100 UNITS/ML VIAL SQ SCH (21:00)
--- NOTE | 2020-03-29 21:39 | Consultation ---
DATE OF CONSULTATION: HISTORY OF PRESENT ILLNESS: This is a 69-year-old female, who was transferred from local skilled care facility, the [facility] with nausea, vomiting, and weakness. In the emergency room, she was found to have UTI. The patient has diabetes mellitus, gastroparesis, and chronic constipation. The patient is being admitted. PAST MEDICAL HISTORY: Diabetes mellitus, gastroparesis, chronic kidney disease, bronchitis, congestive heart failure, depression, anxiety, and hyperlipidemia. PAST SURGICAL HISTORY: Umbilical hernia. SOCIAL HISTORY: From prison . HOME MEDICATIONS: Reviewed. Please refer to my note in the chart. The patient was admitted on 03/27 and I was asked to see her today. The patient, who does have underlying history of congestive heart failure, coronary artery disease, and atrial fibrillation. She was admitted with diagnoses of sepsis and UTI. When she first came, her blood cultures obtained and urine cultures obtained. She is growing VRE. She is currently on Eliquis, insulin, and Reglan. She was given daptomycin and Zofran. The patient, since she came here, she states she is feeling better. PHYSICAL EXAMINATION: GENERAL: She is currently alert and oriented. VITAL SIGNS: Stable, afebrile. HEENT: She is not icteric. NECK: Supple. CHEST: Clear bilateral. HEART: S1 and S2. No S3, S4, or murmur. ABDOMEN: Soft. Bowel sounds present. No tenderness. EXTREMITIES: No edema. SKIN: No rash. IMPRESSION: Urinary tract infection, present on admission. She is currently on daptomycin. Can switch to oral Zyvox to finish in 14 days. Continue with isolation as ordered. Other medical problems; diabetes mellitus, neuropathy, gastroparesis, chronic kidney disease, congestive heart failure, depression. Because of gastroparesis, we will see how she is going to do with oral medicine. We will discuss with medical team. Continue with daptomycin for now. MD ANNE Walters/MIHAELA /[id number]
[2020-03-30] VITALS (8 sets, daily range): BP systolic 108–136; BP diastolic 62–94
[2020-03-30] MEDS ORDERED: METOCLOPRAMIDE HCL 10 MG/2ML VIAL IV STA (00:33)
[2020-03-30 05:07] LABS: BASOPHILS % 0.4 % (0.0-1.0); EOSINOPHILS # (AUTO) 0.1 (0.0-0.4); EOSINOPHILS % 1.1 % (0.0-6.0); HEMATOCRIT 37.1 % (34.2-44.1); LYMPHOCYTES # (AUTO) 1.1 (1.0-3.2); LYMPHOCYTES % 11.5 % (18.0-39.1); MEAN CORPUSCULAR HEMOGLOBIN 25.6 pg (28-32); MEAN CORPUSCULAR HGB CONC 29.6 g/dL (31-35); MEAN CORPUSCULAR VOLUME 86.5 fL (81-99); MONOCYTES # (AUTO) 0.7 (0.2-0.8); MONOCYTES % 7.7 % (4.4-11.3); NEUTROPHILS # (AUTO) 7.2 (2.1-6.9); NEUTROPHILS % 78.9 % (38.7-80.0); PLATELET COUNT 444 x10e3/uL (140-360); RED BLOOD COUNT 4.29 x10e6/uL (3.6-5.1); RED CELL DISTRIBUTION WIDTH 17.3 % (11.7-14.4)
[2020-03-30 05:24] LABS: INR 0.96; PROTHROMBIN TIME 13.4 seconds (11.9-14.5)
[2020-03-30 05:25] LABS: PARTIAL THROMBOPLASTIN TIME 31.1 seconds (23.8-35.5)
[2020-03-30 05:33] LABS: ANION GAP 19.6 mmol/L (8-16); BLOOD UREA NITROGEN 18 mg/dL (7-26); BUN/CREATININE RATIO 20 (6-25); CARBON DIOXIDE 19 mmol/L (22-29); CHLORIDE 112 mmol/L (98-107); CREATININE, SERUM 0.91 mg/dL (0.57-1.11); EST GLOMERULAR FILTRATION RATE > 60 ML/MIN (60-); GLUCOSE 118 mg/dL (74-118); POTASSIUM 4.6 mmol/L (3.5-5.1); SODIUM 146 mmol/L (136-145)
[2020-03-30] MEDS: METOCLOPRAMIDE HCL 10 MG/2ML VIAL IV SCH ×3 (06:49→17:05)
--- NOTE | 2020-03-30 07:00 | NUR ---
BEDSIDE SHIFT REPORT FROM FEATHER DRYING MACHINE OPERATOR RN. PT DENIES NEEDS AT THIS TIME.
[2020-03-30] MEDS: INSULIN LISPRO 100 UNIT/1 ML 3ML VIAL SQ SCH ×4 (07:30→21:00)
[2020-03-30] MEDS: SENNA-S TABLET PO SCH ×2 (08:46→17:05)
[2020-03-30] MEDS: PANTOPRAZOLE 40 MG 10ML VIAL IV SCH ×2 (08:46→21:00)
[2020-03-30] MEDS: ESCITALOPRAM OXALATE 10 MG TAB PO SCH (08:46)
[2020-03-30] MEDS: METOPROLOL SUCCINATE 25 MG TAB XL PO SCH (08:46)
[2020-03-30] MEDS: CLOPIDOGREL BISULFATE 75 MG TAB PO SCH (08:46)
--- NOTE | 2020-03-30 09:36 | Progress Note ---
DATE: SUBJECTIVE: The patient is seen and evaluated. Available labs and notes reviewed. Discussed with the nurse. Discussed with the patient. The patient remains with nausea and vomiting, cannot hold anything down and she vomits as soon as she eats or drinks anything. No fever, chills, chest pain, or shortness of breath. PHYSICAL EXAMINATION: VITAL SIGNS: Temperature is 98.1, pulse 99, respiration 12, and blood pressure 133/66. GENERAL: Alert and oriented. No acute distress. CV: S1 and S2. CHEST: Equal expansion. Clear to auscultation. No acute distress. ABDOMEN: Soft and nontender. No distention. HEENT: Moist. No pallor. No JVD. EXTREMITIES: Bilateral heel wounds on local care, moves all. Weak. No acute distress. MEDICATIONS: Medication list reviewed and from ID point of view, the patient is on Cubicin. LABORATORY STUDIES: White count of 9.15, hemoglobin 11, and platelet 444. Sodium 146, potassium 4.6, and creatinine 0.91. Serology; coronavirus PCR 03/26/2020, is not detected. MICROBIOLOGY: Blood culture negative 72 hours. Urine culture showed VRE. IMAGING: Chest x-ray showed retrocardiac airspace opacities suggestive of atelectasis or infiltrates with small effusion cannot be excluded without evidence of CHF. KUB showed moderate stool burden in a large bowel without evidence of obstruction. ASSESSMENT AND PLAN: 1. Nausea and vomiting. 2. Vancomycin-resistant Enterococcus of the urine/urinary tract infection. 3. Bilateral heel wounds. 4. Can be switch to Zyvox p.o. to complete 14 days of treatment. 5. Congestive heart failure. 6. Depression. 7. Chronic kidney disease. 8. Continue with antibiotics. Monitor the patient clinically and follow with the labs. We will discuss with Dr. Rivera and Dr. Anglin. Dictated by Master Hernandez PA-C (Al) Yulisa Rivera MD /MODL /[id number]
[2020-03-30] MEDS: DAPTOMYCIN 500mg 10ML 400 MG in SODIUM CHLORIDE 0.9% 100 ML IV SCH (12:17)
--- NOTE | 2020-03-30 14:15 | NUR ---
PT OFF THE FLOOR TO ENDO.
[2020-03-30] MEDS ORDERED: MIDAZOLAM HCL 2 MG/2 ML VIAL ONE (14:20)
--- NOTE | 2020-03-30 16:52 | Operative Report ---
DATE OF PROCEDURE: 03/30/2020 SURGEON: Avinash Anglin MD PROCEDURE: Esophagogastroduodenoscopy. INDICATIONS FOR EGD: Recurrent nausea and vomiting, weight loss. MEDICATIONS: The patient was done under MAC, please see anesthesiologist's note. PROCEDURE IN DETAIL: With the patient in left lateral decubitus position, a flexible fiberoptic Olympus gastroscope was introduced into the esophagus under direct visualization without any difficulty. There were some patchy erythemas noted in distal esophagus. The scope was then advanced with ease into the stomach and a large bezoar was noted in the stomach occupying approximately three-quarters of the stomach. The scope could not be advanced beyond the bezoar. Mucosa overlying the visualized body revealed some diffuse erythema. The scope was subsequently withdrawn. The patient tolerated the procedure well. IMPRESSION: 1. Distal esophagitis, mild. 2. 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 PLAN: Continue clear liquids. Continue IV Reglan and IV PPI. We will probably repeat the EGD in 3-4 days of clear liquids and prokinetic therapy. Avinash Anglin MD [facility]/REECEL /[id number] cc: Geronimo Anglin MD
--- NOTE | 2020-03-30 16:52 | Progress Note ---
DATE: 03/30/2020 Cardiology Progress Note SUBJECTIVE: The patient denies chest pain or shortness of breath. OBJECTIVE: VITAL SIGNS: Temperature 98.2 degrees pulse 102, respiratory rate 12, blood pressure 108/94, oxygen saturation 98% on room air. GENERAL: Cachectic, frail elderly woman, in no acute distress, awake and alert. LUNGS: Clear to auscultation bilaterally. No wheeze or crackles. CARDIOVASCULAR: Normal rate. Regular rhythm. No murmur. Normal S1, S2. ABDOMEN: Soft, nontender. EXTREMITIES: No edema. CARDIAC MEDICATIONS: Plavix 75 mg p.o. daily, metoprolol succinate 25 mg p.o. daily. LABORATORY DATA: WBC 9.15, hemoglobin 11, hematocrit 37.1, platelets 444. Sodium 146, potassium 4.6, chloride 112, CO2 19, BUN 18, and creatinine 0.91. TELEMETRY: Personally reviewed and interpreted revealing normal sinus rhythm and sinus tachycardia. IMPRESSION: 1. Chronic systolic heart failure with LVEF of 20 to 25%. 2. Coronary disease status post myocardial infarction. 3. Paroxysmal atrial fibrillation. 4. Urinary tract infection. 5. Sepsis secondary to above. 6. Acute on chronic kidney disease. 7. Diabetes mellitus complicated by diabetic gastroparesis. RECOMMENDATIONS: Monitor and replete electrolytes. Keep potassium above 4 and magnesium above 2. Monitor the patient on telemetry. Continue current cardiac medications. Monitor volume status closely. We will have LifeVest come refit the patient given her significant weight loss. Antibiotics per primary service. Thank you for this consult. We will continue to follow. Connie Jane MD ABS/MODL /[id number]
[2020-03-30] MEDS ORDERED: ETOMIDATE 2 MG/ML 10 ML INJ IV ONE (18:48)
[2020-03-30] MEDS ORDERED: PROPOFOL IV EMULSION 10 MG/ML 20 ML VIAL ONE (18:48)
[2020-03-30] MEDS: MORPHINE SULFATE 2 MG/ML SYR 1ML IV PRN (18:54)
[2020-03-30] MEDS: ONDANSETRON HCL INJ 2MG/ML 2ML 2 MG/ML VIAL IV PRN (18:54)
[2020-03-30] MEDS: MIRTAZAPINE 15 MG TAB PO SCH (21:00)
[2020-03-30] MEDS: INSULIN GLARGINE 100 UNITS/ML VIAL SQ SCH (21:00)
[2020-03-31 00:23] VITALS: BP 123/63
[2020-03-31] MEDS: METOCLOPRAMIDE HCL 10 MG/2ML VIAL IV SCH ×5 (00:23→23:56)
[2020-03-31 04:00] VITALS: BP 132/70
[2020-03-31] MEDS: MORPHINE SULFATE 2 MG/ML SYR 1ML IV PRN ×3 (05:00→23:44)
[2020-03-31] MEDS: INSULIN LISPRO 100 UNIT/1 ML 3ML VIAL SQ SCH ×4 (07:30→21:00)
[2020-03-31] MEDS: SENNA-S TABLET PO SCH ×2 (09:00→18:16)
[2020-03-31] MEDS: ONDANSETRON HCL INJ 2MG/ML 2ML 2 MG/ML VIAL IV PRN ×2 (10:01→23:44)
[2020-03-31] MEDS: ESCITALOPRAM OXALATE 10 MG TAB PO SCH (10:05)
[2020-03-31] MEDS: METOPROLOL SUCCINATE 25 MG TAB XL PO SCH (10:05)
--- NOTE | 2020-03-31 10:06 | Progress Note ---
DATE: SUBJECTIVE: The patient is seen and evaluated, discussed with the nurse, discussed with Dr. Rivera. The patient is comfortable in bed. REVIEW OF SYSTEMS: Nausea and vomiting improved. No fever, chills, chest pain, shortness of breath, headache, or rash. OBJECTIVE: VITAL SIGNS: Temperature 97.7, pulse 99, respirations 16, and blood pressure 132/70. GENERAL: Alert and oriented, comfortable in bed, in no acute distress. CV: S1, S2. CHEST: Equal expansion. Clear to auscultation. No acute distress. HEENT: Moist. No pallor. No JVD. EXTREMITIES: Bilateral heel wounds. MEDICATIONS: Medication list reviewed from ID point of view. The patient is on Cubicin. LABORATORY STUDIES: White count of 9.15, hemoglobin 11, platelet 444. No new BMP. Last creatinine was 0.91 on 03/30/2020. MICROBIOLOGY: Urine culture showed VRE. Blood culture negative. RADIOLOGY STUDIES: No new radiology studies available. Nausea and vomiting, status post EGD. There is a final diagnosis of a distal esophagitis, which was mild. Also large bezoar occupying almost entirety of the stomach. The scope could not be advanced beyond the bezoar. ASSESSMENT AND PLAN: 1. Nausea and vomiting-status post EGD. See above. Seems improved. Plan to treat with PPI and Reglan. With the plan to repeat EGD in 3-4 days. The patient placed on clear liquids and prokinetic therapy. 2. Vancomycin-resistant Enterococcus of urine-continue with Cubicin. 3. Bilateral heel wounds-mostly clean, not much of a necrotic tissue. Continue with local care. 4. Neuropathy. 5. Chronic kidney disease. 6. Continue to monitor the patient clinically, follow up with the labs. Please refer to chart for more information. Discussed with Dr. Rivera in detail. Dictated by Master Hernandez PA-C (Al) Yulisa Rivera MD /MODL /[id number]
[2020-03-31] MEDS: PANTOPRAZOLE 40 MG 10ML VIAL IV SCH ×2 (10:08→21:00)
[2020-03-31] MEDS: CLOPIDOGREL BISULFATE 75 MG TAB PO SCH (10:17)
[2020-03-31] MEDS ORDERED: SODIUM CHLORIDE 0.9% 250ML 250 ML ONE (11:47)
[2020-03-31] MEDS: DAPTOMYCIN 500mg 10ML 400 MG in SODIUM CHLORIDE 0.9% 100 ML IV SCH (11:48)
[2020-03-31 12:00] VITALS: BP 114/63
[2020-03-31] MEDS: METOPROLOL TARTRATE INJ 1 MG/ML VIAL IV PRN (12:02)
--- NOTE | 2020-03-31 12:08 | NUR ---
Called Dr. Stephon Anglin, made him aware patient is on 75 mg of Plavix PO and per his note he plans to do EGD in 3-4 days, I also informed him that patient has been vomiting received orders to continue with her clear liquid diet, and with Plavix daily dose, and to give a Dulcolax suppository 20 mg PA once.
--- NOTE | 2020-03-31 12:15 | NUR ---
Dr. Marielena Anglin rounding to see patient made aware Dr. Stephon Anglin ordered 20mg Dulcolax suppository CA, received orders to hold the suppository for now and give it in maybe 5 to 6 hours, for now give Magnesium Citrate bottle.
[2020-03-31] MEDS ORDERED: CITRATE OF MAGNESIA 300ML BOTTLE PO ONE (12:30)
[2020-03-31 16:00] VITALS: BP 115/64
[2020-03-31] MEDS ORDERED: BISACODYL 10 MG SUPP PR ONE (18:00)
--- NOTE | 2020-03-31 18:57 | Progress Note ---
DATE: 03/31/2020 Cardiology progress note. SUBJECTIVE: The patient denies chest pain or shortness of breath. She complains of abdominal discomfort. OBJECTIVE: VITAL SIGNS: Temperature 97.7 degrees, pulse 129, respiratory rate 17, blood pressure 114/63, and oxygen saturation 100% on room air. GENERAL: Cachectic, frail, elderly woman, in no acute distress. Awake and alert. LUNGS: Clear to auscultation bilaterally. No wheezes or crackles. CARDIOVASCULAR: Normal rate. Regular rhythm. No murmur. Normal S1, S2. ABDOMEN: Soft and nontender. EXTREMITIES: No edema. CARDIAC MEDICATIONS: Plavix 75 mg p.o. daily and metoprolol succinate 25 mg p.o. daily. LABORATORY DATA: None today. IMPRESSION: 1. Chronic systolic heart failure with LVEF of 20% to 25%. 2. Coronary artery disease status post myocardial infarction. 3. Paroxysmal atrial fibrillation. 4. Urinary tract infection. 5. Sepsis secondary to above. 6. Acute on chronic kidney disease. 7. Diabetes mellitus complicated by diabetic gastroparesis. RECOMMENDATIONS: Monitor and replete electrolytes. Keep potassium above 4 and magnesium above 2. Keep patient on telemetry. Continue current cardiac medications. Monitor volume status closely. If no further procedures are planned, would recommend resuming anticoagulation for CVA prophylaxis. If anticoagulation is not to be restarted due to procedures, would recommend starting aspirin 81 mg p.o. daily for now for dual antiplatelet therapy given her history of myocardial infarction. Antibiotics per Infectious Disease. Management of nausea and vomiting per GI. No further cardiac evaluation is indicated at this time. Thank you for this consult. We will continue to follow. Connie Jane MD ABS/MODL /[id number]
[2020-03-31 20:00] VITALS: BP 117/67
--- NOTE | 2020-03-31 20:00 | NUR ---
PATIENT DRESSING CHANGES TO BILATERAL HEEL ASKED ABOUT HER ALLERGY TO IODINE REPORTED SHE HAS HAD IODINE IN THE PAST WITH OTHER PROCEDURES AND HAS NOT HAD ANY ALLERGIC REACTION ALLERGY UPDATED AND REMOVED IODINE ALLERGY.
--- NOTE | 2020-03-31 20:00 | NUR ---
Received change of shift report from AM nurse.
--- NOTE | 2020-03-31 20:00 | NUR ---
ASKED PATIENT ABOUT HER ALLERGY TO IODINE, PATIENT REPORTED SHE IS ALLERGIC TO SHELL FISH AND DERIVATIVES, BUT SHE HAS HAD IODINE WHEN SHE HAS HAD SURGERY AND WITH OTHER PROCEDURES AND HAS NOT HAD ANY ADVERSE EFFECTS DRESSING CHANGED NO S/S OF ALLERGIC REACTION.
[2020-03-31] MEDS: INSULIN GLARGINE 100 UNITS/ML VIAL SQ SCH (21:00)
[2020-03-31] MEDS: MIRTAZAPINE 15 MG TAB PO SCH (21:00)
[2020-04-01] VITALS (9 sets, daily range): BP systolic 104–120; BP diastolic 60–67
--- NOTE | 2020-04-01 01:32 | NUR ---
Patient in bed refusing to be turned to change depend or reposition in bed. Patient states she is in pain. Given pain and nausea meds as ordered by MD. Patient continue to refuse to bed reposition in bed to prevent bed sores. Continue monitor.
--- NOTE | 2020-04-01 02:21 | NUR ---
Dr Anglin on the floor to see patient. Orders received. Suppository given as ordered by .
[2020-04-01] MEDS ORDERED: BISACODYL 10 MG SUPP PR ONE (02:30)
[2020-04-01] MEDS: METOCLOPRAMIDE HCL 10 MG/2ML VIAL IV SCH ×4 (05:18→23:27)
--- NOTE | 2020-04-01 06:53 | NUR ---
Patient resting quitly at this time. Continue monitor.
[2020-04-01] MEDS: INSULIN LISPRO 100 UNIT/1 ML 3ML VIAL SQ SCH ×4 (07:30→21:00)
--- NOTE | 2020-04-01 10:36 | Progress Note ---
DATE: SUBJECTIVE: The patient is seen and evaluated. Available labs and notes reviewed. Discussed with Dr. Rivera. Please refer to chart for more information. REVIEW OF SYSTEMS: Nausea and vomiting improved. Pain is controlled. No headache. No fever. No chills. Remains with poor appetite. MEDICATIONS: Medication list reviewed. From ID point of view, the patient is on daptomycin. LABORATORY STUDIES: White count of 9.15 on 03/30/2020. No new CBC or BMP available. Last creatinine was 0.91 on 03/30/2020. Coronavirus PCR was not detected on 03/26/2020. MICROBIOLOGY: Blood culture negative on 03/26/2020. Urine was Enterococcus faecalis/VRE on 03/26/2020. IMAGING: No new radiology studies available. PHYSICAL EXAMINATION: VITAL SIGNS: Temperature 97.7, pulse is 99, respirations 16, and blood pressure 120/66. GENERAL: Alert and oriented, no acute distress. CV: S1-S2. CHEST: Equal expansion. Clear to auscultation. No acute distress. ABDOMEN: Soft. Nontender. No distention. HEENT: Moist. No pallor. No JVD. EXTREMITIES: Bilateral heel wounds on local care. ASSESSMENT AND PLAN: 1. Nausea and vomiting, status post esophagogastroduodenoscopy. The patient was found to have bezoar, which was large in size. An esophagogastroduodenoscopy could not past that bezoar for further evaluation. The patient is placed on clear liquids and IV Reglan with a plan to recheck EGD on 04/02/2020. 2. Vancomycin-resistant enterococcus urinary tract infection, on daptomycin. 3. Gastroesophageal reflux disease. Continue with proton pump inhibitor. 4. Diabetes. 5. Coronary artery disease. 6. Bilateral heel wounds. 7. Debility. Continue with antibiotics. Monitor patient clinically. Follow with the EGD tomorrow. Further management of this patient is based on daily findings on laboratory and physical examination. Please refer to chart for more information. Dictated by Master Hernandez PA-C (Al) Yulisa Rivera MD /MODL /[id number]
[2020-04-01] MEDS: ESCITALOPRAM OXALATE 10 MG TAB PO SCH (12:12)
[2020-04-01] MEDS: SENNA-S TABLET PO SCH ×2 (12:12→17:00)
[2020-04-01] MEDS: PANTOPRAZOLE 40 MG 10ML VIAL IV SCH ×2 (12:12→20:45)
[2020-04-01] MEDS: CLOPIDOGREL BISULFATE 75 MG TAB PO SCH (12:12)
[2020-04-01] MEDS: METOPROLOL SUCCINATE 25 MG TAB XL PO SCH (13:20)
[2020-04-01] MEDS: DAPTOMYCIN 500mg 10ML 400 MG in SODIUM CHLORIDE 0.9% 100 ML IV SCH (15:21)
--- NOTE | 2020-04-01 15:45 | Progress Note ---
DATE: 04/01/2020 Cardiology Progress Note SUBJECTIVE: The patient denies chest pain or shortness of breath. Her main complaint is stomach discomfort. OBJECTIVE: VITAL SIGNS: Temperature 97.7 degrees, pulse 99, respiratory rate 16, blood pressure 120/66, and oxygen saturation 94% on room air. GENERAL: Cachectic, frail woman, in no acute distress. Awake and alert. LUNGS: Clear to auscultation bilaterally. No wheezes or crackles. CARDIOVASCULAR: Normal rate. Regular rhythm. No murmur. Normal S1 and S2. ABDOMEN: Soft and nontender. EXTREMITIES: No edema. CARDIAC MEDICATIONS: Plavix 75 mg p.o. daily and metoprolol succinate 25 mg p.o. daily. LABORATORY DATA: None today. Telemetry was personally reviewed and interpreted, revealing sinus tachycardia. IMPRESSION: 1. Chronic systolic heart failure with left ventricular ejection fraction of 20% to 25%. 2. Coronary artery disease, status post myocardial infarction. 3. Paroxysmal atrial fibrillation. 4. Urinary tract infection. 5. Sepsis secondary to above. 6. Wrzkp-jv-nmrdhpx kidney disease. 7. Diabetes mellitus complicated by diabetic gastroparesis. RECOMMENDATIONS: Monitor and replete electrolytes. Keep potassium above 4 and magnesium above 2. Maintain the patient on telemetry. Continue current cardiac medications. Resume anticoagulation for CVA prophylaxis once no further procedures are planned. Antibiotics per Infectious Disease. Management of nausea and vomiting per GI. No further cardiac evaluation is indicated at this time. Thank you for this consult. We will continue to follow. Connie Jane MD ABS/MODL /[id number]
[2020-04-01] MEDS: MORPHINE SULFATE 2 MG/ML SYR 1ML IV PRN (19:50)
[2020-04-01] MEDS: MIRTAZAPINE 15 MG TAB PO SCH (20:45)
[2020-04-01] MEDS: INSULIN GLARGINE 100 UNITS/ML VIAL SQ SCH (21:00)
--- NOTE | 2020-04-01 22:00 | NUR ---
pt received. no ss of distress noted. no co pain at time. tele monitor in place. no ss of distress noted. will cont to follow poc. call hebert within reach. Addendum: 04/01/20 at 2327 by Aaliyah Sanchez RN renee draining to gravity.
--- NOTE | 2020-04-01 23:27 | NUR ---
attempted to reposition pt. after pt turned to right side she yelled out in pain and demanding to be repositioned back to left side. pt repositioned to left per request. no ss of distress noted. call hebert within reach.
[2020-04-02] MEDS: ONDANSETRON HCL INJ 2MG/ML 2ML 2 MG/ML VIAL IV PRN ×2 (04:14→16:20)
--- NOTE | 2020-04-02 04:32 | NUR ---
aroldo/renee care provided at time. emesis x1 noted and medicated per orders at time. pt repositioned. pt tolerated well. no distress noted. call hebert within reach.
[2020-04-02 04:34] VITALS: BP 111/60
--- NOTE | 2020-04-02 04:58 | NUR ---
pt made npo per orders. pt verbalized understanding. no ss of distress noted. call hebert within reach.
[2020-04-02] MEDS: METOCLOPRAMIDE HCL 10 MG/2ML VIAL IV SCH ×4 (05:08→21:42)
[2020-04-02] MEDS: METOPROLOL TARTRATE INJ 1 MG/ML VIAL IV PRN (06:27)
--- NOTE | 2020-04-02 06:34 | NUR ---
tele reported hr 140. upon assessment pt resting. hr rechecked 145. medication given per orders. will notify oncoming nurse.
--- NOTE | 2020-04-02 07:12 | NUR ---
hr rechecked at time 133, bp 91/69. pt sleeping. no ss of distress noted. call hebert within reach. walking rounds made.
[2020-04-02 07:30] VITALS: BP 95/65
[2020-04-02] MEDS: INSULIN LISPRO 100 UNIT/1 ML 3ML VIAL SQ SCH ×4 (07:30→21:42)
[2020-04-02 07:48] LABS: BASOPHILS # (AUTO) 0.1 (0.0-0.1); BASOPHILS % 0.5 % (0.0-1.0); EOSINOPHILS # (AUTO) 7.6 (0.0-0.4); EOSINOPHILS % 39.5 % (0.0-6.0); HEMATOCRIT 37.4 % (34.2-44.1); HEMOGLOBIN 11.1 g/dL (12.0-16.0); LYMPHOCYTES # (AUTO) 0.9 (1.0-3.2); LYMPHOCYTES % 4.8 % (18.0-39.1); MEAN CORPUSCULAR HEMOGLOBIN 25.1 pg (28-32); MEAN CORPUSCULAR HGB CONC 29.7 g/dL (31-35); MEAN CORPUSCULAR VOLUME 84.6 fL (81-99); MONOCYTES # (AUTO) 1.5 (0.2-0.8); MONOCYTES % 7.6 % (4.4-11.3); NEUTROPHILS # (AUTO) 9.1 (2.1-6.9); NEUTROPHILS % 47.2 % (38.7-80.0); PLATELET COUNT 431 x10e3/uL (140-360); RED BLOOD COUNT 4.42 x10e6/uL (3.6-5.1); RED CELL DISTRIBUTION WIDTH 18.5 % (11.7-14.4)
[2020-04-02 08:14] LABS: ANION GAP 23.1 mmol/L (8-16); CALCIUM 10.3 mg/dL (8.4-10.2); CREATININE, SERUM 1.36 mg/dL (0.57-1.11); POTASSIUM 4.1 mmol/L (3.5-5.1)
--- NOTE | 2020-04-02 08:55 | Diagnostic Imaging Report ---
EXAMINATION: CHEST SINGLE (PORTABLE) INDICATION: Pneumonia COMPARISON: Chest radiograph 03/28/2020 FINDINGS: LINES/TUBES:EKG leads overlie the chest. LUNGS:The right lung is well-inflated. Left lung is moderately inflated. There is left basilar opacity silhouetting the left comfort diaphragm. PLEURA:Small left pleural effusion. No pneumothorax. MEDIASTINUM:The cardiomediastinal silhouette appears unchanged in size and shape. Atherosclerotic calcifications of the thoracic aorta. BONES/SOFT TISSUES:No acute osseous injury. ABDOMEN:No free air under the diaphragm. IMPRESSION: Left basilar patchy opacity concerning for aspiration or pneumonia in the proper clinical setting. Small left pleural effusion. Signed by: Mona Harrison MD on 04/02/2020 8:51 AM
[2020-04-02] MEDS: CLOPIDOGREL BISULFATE 75 MG TAB PO SCH (09:00)
[2020-04-02] MEDS: ESCITALOPRAM OXALATE 10 MG TAB PO SCH (09:00)
[2020-04-02] MEDS: SENNA-S TABLET PO SCH ×2 (09:00→16:16)
[2020-04-02] MEDS: METOPROLOL SUCCINATE 25 MG TAB XL PO SCH (09:00)
[2020-04-02] MEDS: PANTOPRAZOLE 40 MG 10ML VIAL IV SCH ×2 (09:02→21:34)
[2020-04-02] MEDS ORDERED: SODIUM CHLORIDE 0.9% 250ML 250 ML IV ONE (09:45)
--- NOTE | 2020-04-02 10:19 | Progress Note ---
DATE: SUBJECTIVE: Discussed with Dr. Rivera in details. Discussed with the nurse. Discussed with the patient. Currently n.p.o. REVIEW OF SYSTEMS: Apparently, nausea and vomiting have improved. Tolerating liquid diet. However, the patient is n.p.o. today for EGD. No new complaints. Nurse complained that white count went up today to 19,000. X-ray was placed in by Internal Medicine and suggests that the patient has a left basilar patchy opacity concerning for aspiration or pneumonia in the proper clinical setting, also has a small left pleural effusion. LABORATORY STUDIES: White count 19.22, hemoglobin 11.1, and platelet 431. Sodium 145, potassium 4.1, and creatinine 1.36, went up from 0.91. IMAGING: Chest x-ray of today showed left basilar patchy opacity with concern for pneumonia. See above. PHYSICAL EXAMINATION: VITAL SIGNS: Temperature 98.7, temperature reviewed, the patient is afebrile. Pulse 132. Cardiology on the case. Notified medication ordered per my discussion with the nurse. Respirations 18. Blood pressure 95/65. The patient is receiving fluid bolus. GENERAL: Alert and oriented, no acute distress. CV: S1-S2. CHEST: Equal expansion. Decreased breath sounds. No acute distress. ABDOMEN: Soft. Nontender. Bowel sounds positive. HEENT: Moist. No pallor. No JVD. EXTREMITIES: Weak. Bilateral heel wounds on local care. ASSESSMENT AND PLAN: 1. Nausea and vomiting. The patient is status post esophagogastroduodenoscopy, found to have bezoar. Followup EGD scheduled for today. The patient is currently n.p.o. 2. Leukocytosis with concern for aspiration pneumonia in the setting of the patient with a nausea and vomiting for few days. 3. Tachycardia/hypotensive-continue with Cardiology. RECOMMENDATION: 1. The patient is getting bolus fluid. 2. Bilateral heel wounds. Continue with local care, chronic wounds. No obvious acute findings. VRE of the urine. The patient remains on daptomycin. Monitor creatinine level. It went up from 0.9 to 1.36, however, was admitted with a creatinine level of 1.39. We will continue to monitor renal function. The patient is receiving IV bolus fluid. 3. Gastroesophageal reflux disease. Continue with proton pump inhibitors. GI is on the case. 4. Diabetes. 5. Coronary artery disease. 6. Bilateral wounds and severe debility. Continue with antibiotics. Monitor the patient clinically. Follow up with the labs. Follow with EGD today. Further management of this patient is based on daily findings on laboratory and physical examination. Discussed with Dr. Rivera. Please refer to chart for more information. Dictated by Master Lugo) HARRIETT Hernandez Yulisa Rivera MD /REECEL /[id number]
[2020-04-02 11:29] LABS: EOSINOPHILS % (MANUAL) 31 % (0-7); HYPOCHROMASIA SLIGHT; LYMPHOCYTES % (MANUAL) 6 % (19-48); MONOCYTES % (MANUAL) 13 % (3.4-9.0); NEUTROPHILS % (MANUAL) 50 % (40-74); PLATELET ESTIMATE ADEQUATE; PLATELET MORPHOLOGY COMMENT NORMAL; RBC MORPHOLOGY COMMENT NORMAL
[2020-04-02] MEDS: CEFEPIME 1GM/NS 0.9% 50 ML 50 ML IV SCH ×2 (11:53→18:04)
[2020-04-02 12:00] VITALS: BP 94/63
--- NOTE | 2020-04-02 12:15 | NUR ---
INFORMED DR TYLER PATIENT HEART RATE REMAINS ELEVATED AFTER NS BOLUS, ORDERS RECEIVED FOR STAT EKG, WILL CONTINUE TO MONITOR.
--- NOTE | 2020-04-02 12:25 | NUR ---
INFORMED DR TYLER STAT EKG CONFIRMS A FIB RVR, ORDERS RECEIVED, WILL CONTINUE TO MONITOR.
[2020-04-02] MEDS ORDERED: DIGOXIN INJ 0.25 MG/ML 2 ML AMP IV SCH (12:35)
--- NOTE | 2020-04-02 12:49 | Progress Note ---
DATE: 04/02/2020 Cardiology Progress Note. SUBJECTIVE: The patient denies chest pain or shortness of breath. OBJECTIVE: VITAL SIGNS: Temperature 98.7 degrees, pulse 132, respiratory rate 18, blood pressure 95/65, oxygen saturation 99% on room air. GENERAL: Cachectic, frail woman, in no acute distress. Awake and alert. LUNGS: Clear to auscultation bilaterally. No wheeze, crackles. HEART: Normal rate, regular rhythm. No murmur. Normal S1, S2. ABDOMEN: Soft and nontender. EXTREMITIES: No edema. CARDIAC MEDICATIONS: Plavix 75 mg p.o. daily and metoprolol succinate 25 mg p.o. daily. LABORATORY DATA: WBC 19.22, hemoglobin 11.1, hematocrit 37.4, platelets 431. Sodium 145, potassium 4.1, chloride 112, CO2 of 14, BUN 25, and creatinine 1.36. Chest x-ray, left basilar patchy opacity concerning for aspiration pneumonia in the proper clinical setting, small left pleural effusion. Telemetry was personally reviewed and interpreted, revealing sinus tachycardia. IMPRESSION: 1. Chronic systolic heart failure, LVEF 20% to 25%. 2. Coronary artery disease status post myocardial infarction. 3. Paroxysmal atrial fibrillation. 4. Urinary tract infection. 5. Sepsis secondary to above. 6. Leukocytosis. 7. Acute on chronic kidney disease. 8. Diabetes mellitus complicated by diabetic gastroparesis. RECOMMENDATIONS: Monitor and replete electrolytes. Keep potassium above 4 and magnesium above 2. Given acute kidney injury as well as tachycardia, we will give gentle IV fluid as the patient may be volume depleted due to recurrent GI difficulties. Monitor volume status closely. Due to hypotension, we will hold metoprolol at this time. Antibiotics per Infectious Disease. Management of nausea, vomiting per GI. Anticoagulation is on hold for procedures. Resume once no further procedures are planned. Thank you for this consult. We will continue to follow. Connie Jane MD ABS/MODL /[id number]
--- NOTE | 2020-04-02 12:50 | NUR ---
INFORMED DR CEJA PATIENT HAS DECREASED URINE OUTPUT AND TOTAL FOR 24 HOURS 150 CC AND CR 1.36, ORDERS RECEIVED AND ENTERED.
[2020-04-02] MEDS ORDERED: ALBUMIN 5% 0.05 GM/ML BTL IV ONE ×2 (13:30→13:45)
[2020-04-02] MEDS ORDERED: EPINEPHRINE HCL SYRINGE ONE (13:51)
[2020-04-02] MEDS ORDERED: CALCIUM CHLORIDE 10% 1.36 MEQ/ML 10ML SYR IV ONE (13:51)
[2020-04-02] MEDS ORDERED: AMIODARONE HCL INJ 150MG/3ML ONE (13:51)
[2020-04-02] MEDS ORDERED: CEFEPIME HCL 1 GM VIAL IV SCH (14:00)
[2020-04-02] MEDS ORDERED: SODIUM BICARBONATE 8.4% 150 ML in DEXTROSE 5% 1,000 ML IV SCH (14:30)
--- NOTE | 2020-04-02 14:37 | NUR ---
Nutrition Intervention Note RD Recommendation(s) for Physician: -Recommend advancing diet when medically appropriate - Recommend Franco BID as well as zinc and vitamin C for wound healing when diet is advanced -Recommend Glucerna nutrition supplement BID for added nutrition when diet is advanced Plan of Care: RD following, monitoring for tolerance and adequacy, oral supplement recommendation Nutrition reason for involvement: follow up RD Assessment 04/02: Follow up. It was found that pt had a large bezoar. Pt is currently NPO for an EGD. Per MD note, pts N/V had improved and was tolerating liquid diet. Will continue to monitor. (03/29/20) Pt is a 69 year old female admitted with dehydration, UTI, and intractable N/V. Pt was sleeping at time of visit; therefore, spoke to family member at bedside who reported pt has been eating <50% of meals for > 1 month. Family member also stated pt had lost weight and used to weigh 140 lbs, but he was unsure of timeframe of weight loss. Recommend Franco BID as well as zinc and vitamin C for wound healing and Glucerna nutrition supplement BID for added nutrition. Will continue to montitor Principal Problems/Diagnoses: dehydration, UTI, intractable N/V PMH: Type 2 diabetes mellitus, Diabetic gastroparesis, Stage 3 chronic kidney disease, Chronic bronchitis, Hypertensive heart disease, Chronic diastolic congestive heart failure, Depression, Anxiety disorder, GERD, Dyslipidemia, Generalized osteoarthritis, Chronic bilateral heel ulcers, Peripheral artery disease. I/O: 120/150 GI: soft, flat, tender abdomen, last recorded BM 04/01 Skin: right heel unstageable pressure ulcer, left heel stage 4 pressure ulcer per wound care note on 03/29 Labs: 04/02: Na 145, K 4.1, BUN 25, Cr 1.36, Glu 142 (03/29/20) Na 144, K 4.4, BUN 21, Cr 0.92, Glu 118 Meds: cefepime, reglan, protonix, metoprolol, zofran, insulin, senokot Ht: 63 inches Wt: 115 lbs BMI: 20.4 kgm2 IBW: 115 lbs Malnutrition Evaluation (03/29/20) The patient does not meet criteria for a specified degree of malnutrition at this time. Will re-evaluate at follow-up as appropriate. Energy intake: <75% of estimated energy requirements for >1 month Weight loss: Unable to assess timeframe unknown Fat loss: unable to evaluate Muscle loss: unable to evaluate Supporting Evidence: Fluid accumulation: unable to evaluate Functional Status: unable to evaluate Nutrition Prescription (Diet Order): NPO Estimated Nutritional Needs: 2815-3549 calories/day (25-35 kcal/kg CBW) 63-78 g protein/day (1.2-1.5 g pro/kg CBW) Diet Adequacy: Not meeting calorie needs, Not meeting protein needs Tolerance: pt is NPO Diet Education Needs Assessment: Diet education not indicated Nutrition Care Level: moderate Nutrition Diagnosis: Inadequate energy intake related to decreased ability to consume sufficient energy as evidenced by pt eating <50% of meals for > 1 month per family member. Goal: Patient will meet 75-100% of estimated needs by follow up Progress: not progressing Interventions: Carbohydrate- modified diet, Commercial beverage, Multivitamin/mineral supplement therapy Monitoring/Evaluation: -Total energy intake, Total protein intake, Modified diet, Liquid supplement, Weight change Signed: Denae Earl RD, LD
[2020-04-02 16:00] VITALS: BP 95/47
[2020-04-02] MEDS ORDERED: DIGOXIN INJ 0.25 MG/ML 2 ML AMP IV ONE (18:00)
[2020-04-02] MEDS ORDERED: ALBUMIN 25% 12.5GM 0.25 GM/ML BTL IV ONE (18:45)
--- NOTE | 2020-04-02 19:54 | Diagnostic Imaging Report ---
EXAM: Renal Ultrasound INDICATION: ^TAVO COMPARISON: None TECHNIQUE: Transverse and longitudinal images of the kidneys and bladder were obtained. FINDINGS: Right Kidney: Size:9.2 cm Echogenicity: Normal Parenchymal thickness: Normal Collecting system: No hydronephrosis Stones: None Cyst/Mass: None Left Kidney: Size: 9.1 cm Echogenicity: Normal Parenchymal thickness: Normal Collecting system: No hydronephrosis Stones: None Cyst/Mass: None Bladder: Normal IMPRESSION: Unremarkable renal ultrasound exam. Signed by: Master Bailon MD on 04/02/2020 7:50 PM
[2020-04-02 20:00] VITALS: BP 95/47
[2020-04-02] MEDS ORDERED: ALBUMIN 5% 250ML 250 ML IV ONE (20:00)
[2020-04-02 20:10] VITALS: BP 103/86
[2020-04-02] MEDS: MIRTAZAPINE 15 MG TAB PO SCH (21:00)
[2020-04-02 21:08] LABS: CLARITY,URINE CLOUDY (CLEAR); COLOR,URINE AMBER (YELLOW)
[2020-04-02 21:09] LABS: BILIRUBIN,URINE LARGE (NEGATIVE); KETONES,URINE 1+ (NEGATIVE); LEUKOCYTE ESTERASE ,URINE TRACE (NEGATIVE); NITRITE,URINE NEGATIVE (NEGATIVE); PROTEIN,URINE DIPSTICK 2+ (NEGATIVE); URINE UROBILINOGEN 0.2 mg/dL (0.2 - 1)
[2020-04-02 21:20] LABS: CREATININE,URINE RANDOM 197.93 mg/dL (47-110)
[2020-04-02 21:22] LABS: SODIUM,URINE < 20 mmol/L
[2020-04-02 21:23] LABS: BACTERIA,URINE RARE /HPF; EPITHELIAL CELLS,URINE FEW /LPF; WBC,URINE (MAN) 21-50 /HPF (0-5)
[2020-04-02] MEDS: INSULIN GLARGINE 100 UNITS/ML VIAL SQ SCH (21:41)
--- NOTE | 2020-04-02 22:58 | NUR ---
PATIENT WENT INTO [facility] AT 2228 NURSE CALLED CODE AND ACLS PERFORMED WITH ER STAFF AND ICU PRESENT. AT 2240 TIME OF WAS CALLED BY ER DOCTOR. NURSE CALLED PATIENT'S AND WAS UNABLE TO REACH HIM, LEFT VOICEMAIL MESSAGE AND THEN CALLED PATIENT'S SON TESS AND WAS ABLE TO NOTIFY THE SON OF PATIENT'S PASSING. SON STATES HE WILL CONTACT HIS FATHER AND THEY WILL COME TO SEE THE PATIENT. CALLED TO NOTIFY DR. CEJA OF PT PASSING AT THIS TIME.
--- NOTE | 2020-04-03 00:01 | NUR ---
PATIENT FAMILY HAS ARRIVED FOR VISITATION TO THE PATIENT'S ROOM.
--- NOTE | 2020-04-03 01:59 | NUR ---
FAMILY ( CLARISSA AND SON TESS) PROVIDED HOME DETAILS OF [facility] PHONE NUMBER [phone] FAMILY AND NURSE SPOKE WITH DIRECTOR ISI AND THEY ARE ON THE WAY TO RETRIEVE THE PATIENT. FAMILY HAS SIGNED DOCUMENTS AND HAS LEFT THE HOSPITAL AT THIS TIME.
--- NOTE | 2020-04-03 02:43 | NUR ---
HOME SENIOR [employer]CROW OFFICER TOOK POSSESSION OF THE PATIENT AT THIS TIME AND SHE HAS BEEN REMOVED FROM THE HOSPITAL.
--- NOTE | 2020-04-05 09:52 | Consultation ---
DATE OF CONSULTATION: 03/27/2020 HISTORY OF PRESENT ILLNESS: A 69-year-old female admitted with nausea, vomiting, had a complicated UTI, which was positive for Enterococcus faecium VRE, has been on daptomycin which has just been discontinued. Renal consulted for decreased urine output, acute kidney injury. The patient currently lying supine. She states she is very tired. She appears a very thin lady, very poor muscle mass, in no apparent respiratory distress, but appears quite weak and tired. Denies shortness of breath, nausea, and vomiting. Denies any cough at this point in time. by bedside, so is bedside RN. LABORATORY TEST: Shows significantly elevated white count 19.2 with a hemoglobin 11.1. Her eosinophil percentage is 39.5% with manual showing 31% eosinophils. Chemistry showing sodium 145, potassium 4.1, chloride 112, bicarbonate 14, anion gap 23, creatinine 1.36, calcium 10.3. Urinalysis done on the shows specific gravity 1.030. Urine microscopy was benign. ALLERGIES: SHE IS ALLERGIC TO GENTAMICIN, IODINE, AND SELFISH. MEDICATIONS: She is currently on cefepime 1 g IV q.8. She is on pantoprazole 40 mg IV q.12. She is on Reglan 10 mg q.6. she is on Remeron 15 mg at bedtime. She is on metoprolol 25 mg p.o. daily. She is was given one time dose of digoxin. She is on Lexapro 10 mg daily, Plavix 75 mg daily. IMAGING STUDIES: She had a recent EGD, shows distal esophagitis, large bezoar occupying almost the entire lower part of the stomach. Please see Dr. Avinash Anglin's note for details. She has a history of severe cardiomyopathy, ejection fraction less than 20%. PAST MEDICAL HISTORY: She has history of type 2 diabetes, diabetic gastroparesis, history of chronic bronchitis, chronic diastolic congestive heart failure, depression, anxiety disorder, generalized osteoarthritis, bilateral heel ulcers. PAST SURGICAL HISTORY: She had a prior umbilical hernia repair, right second toe amputation, history of arterial stent placement in bilateral lower extremity. SOCIAL HISTORY: Does not smoke or drink. PHYSICAL EXAMINATION: GENERAL: The patient is lying supine, thin built female, very poor muscle mass. VITAL SIGNS: Blood pressure is 94/63, pulse rate 139, irregularly irregular rhythm. HEAD AND NECK: Cornea clear. Mucosa very dry. Neck veins flat. LUNGS: Clear on the right. There are occasional rales noted in the left lower zone. HEART: S1 and S2 audible. Irregular regular rhythm. ABDOMEN: Otherwise soft, nontender. No apparent visceromegaly. LOWER EXTREMITIES: Show no edema. IMPRESSION: Acute kidney injury. Oligoanuric state, severely dehydrated with development of high anion gap metabolic acidosis, hypercalcemia, eosinophilia, must rule out acute tubulointerstitial nephritis, poor ejection fraction, afebrile at the moment. Plan on sending urine studies including calculate fraction excretion of sodium. Discussed with ID. He will adjust antibiotics and stop cefepime most likely. Must rule out aspiration pneumonia. Possibility of diabetic ketoacidosis. Plan on sending stat serum ketones. Very poor cardiac prognosis. We will start gentle volume replacement with IV albumin 250 mL over 4 hours, 5%. Starting IV bicarb drip at 50 mL an hour. Discussed with Dr. Avinash Anglin, Dr. Rivera, and Dr. Marielena Anglin. Please see orders. MD SUDHIR Alegre/MODL /[id number]
--- NOTE | 2020-05-03 12:28 | Discharge Summary ---
CHIEF COMPLAINT: Progressive weakness, feeling cold. FINAL DIAGNOSES: Sepsis, end-stage congestive heart failure, acute kidney injury, ATN, and hypokalemia. DISPOSITION: The patient succumbed to her illness on 04/02/2020. HOSPITAL COURSE: A 69-year-old female, resident of a local [facility] facility, brought to the ER. The patient was complaining of generalized weakness along with nausea and vomiting, underwent review evaluation in the ER, found to have issues of UTI. She does have history of being diabetic gastroparesis as well as chronic constipation. Further review and care in the ER led to an admission with diagnosis of sepsis secondary to UTI likely acute on chronic renal insufficiency, type 2 diabetes, diabetic gastroparesis, chronic constipation, acute on chronic diastolic heart failure, paroxysmal atrial fibrillation. We will be starting the patient on IV fluids, be checking a cardiac biomarker, obtain culture of urine as well as blood, began antibiotic coverage, monitor and maintain glucose control, maintain protocols for her history of atrial fibrillation. We will admit to IMCU. CONSULTANTS: During the stay, Dr. Santacruz, Cardiology with the patient's history of congestive heart failure, atrial fibrillation and issues of tachycardia. Evaluation was conducted, assessment was made of coronary artery disease, status post OR, chronic systolic congestive heart failure. The patient is wearing a Life Vest. Sinus tachycardia. Recommend continuing the Life Vest protocol. The patient has been ruled out for acute OR with the biomarker, continued to be monitored closely. ADDITIONAL CONSULTANTS: Infectious Disease with Dr. Rivera regarding the findings of PPI, with review impression was made of UTI present on admission, currently receiving daptomycin, will be switching to oral Zyvox to finish in 14 days, we will continue maintaining isolation protocols. SURGICAL PROCEDURE: EGD by Dr. Avinash Anglin due to recurrent nausea, vomiting and weight loss. The procedure was conducted by Dr. Avinash Anglin. Following the conclusion of the procedure findings were revealing distal esophagitis mild, a large bezoar occupying almost the entirety of the stomach. We will continue clear liquids, we will continue IV Reglan and IV dyes. We will probably repeat this study at 3-4 days. As mentioned from the ER, the patient was placed in the IMCU on clear liquid diet on IV fluids, started on IV antibiotics. Lab studies were being monitored closely as well as vital signs. She did present with hypokalemia early, arrangements were made to replenish values, her daily medications were continuing as well. She was started on antibiotics. She was taken off the Ceftin. She was then started on daptomycin and with continued nausea and vomiting she underwent GI review with Dr. Avinash Anglin and his evaluation reveals recurrent nausea, vomiting, and weight loss questionably secondary to diabetic gastroparesis. We will initiate IV Reglan. The patient might benefit from EEG. Care continued, continue to have the complaints of nausea, began PPI treatment. The EGD was conducted, findings were discussed. Postprocedure, she was still having nausea, but there was no chest pain or shortness of breath. She was now on antibiotics as well as Reglan IV as well as magnesium citrate to promote bowel cleansing and discussion is being placed to reschedule for secondary followup EGD. Continues to have constant nausea and vomiting. Being maintained on and as mentioned discussions will be made to start the patient on p.o. Zyvox, however, on 04/02 the patient went into rapid event, ACLS was performed. The patient failed the rapid event response protocols and I was made aware of the patient's demise by the nursing restaurant shift supervisor. IMAGING: Imaging during her stay in the facility begins with a chest x-ray revealing mild cardiomegaly and pulmonary vascular congestion. Further chest x-rays were conducted during the study. She also had an abdomen x-ray, findings were showing moderate stool burden in the large bowel without evidence of obstruction. She also underwent a renal ultrasound, which was unremarkable and a final chest x-ray on 04/02 prior to her rapid event was showing left basilar patchy opacity concerning for aspiration pneumonia in the proper clinical setting, small left pleural effusion. Cultures; blood negative, urine was revealing Enterococcus faecium vancomycin-resistant. LABORATORY STUDIES: Shows CBC, initial panel, white cell count normal, H and H are normal, platelets stable. Further monitoring of the CBC revealed normal white count up with the white cell count fortunato to the value of 19,200, H and H values fell to 11.0 to 26.1 during her stay, final study on 04/02 was 11.1 and 37.4. Urinalysis shows kristina color, 1+ protein, 2+ ketones, 0-5 wbc's by high-power field, many bacteria. Followup urine seven days later shows 2+ protein, 1+ ketones, large amount of occult blood, large amount of bilirubin. Microscopic examination was showing 11-20 rbc's by high-power field, 21-50 wbc's by high-power field, now the bacteria was noted to be at a rare occurrence. Chemistries; initial panel shows a BNP of 825.6. Electrolytes were stable. Kidney functions, BUN 30, creatinine 1.39, glucose 147. First set of cardiac enzymes normal. TSH was noted to be at 0.033. Further two sets of cardiac enzymes were normal. Potassium fell to 3.4. Repeat study was at 4.1. Glucose levels monitored as high as 162, final study 152. Followup BNP was 1027.0. As stated on 04/02, the patient had a rapid event, failed to recover from it and was pronounced . Dictated by SHOAIB Perdomo Geronimo Anglin MD CC/MODL /[id number]
--- OUTSIDE RECORDS SUMMARY | 2020-05-06 21:43 | XMS REPORT | Summary of Care ---
Author Author [facility] Primary [facility] Address Unknown Phone Unavailable Encounter HQ Allen_teetee(FIN) [id number] Date(s): 05/23/19 - 05/23/19 [facility] [address] [place] [address]- [phone] Discharge Disposition: Home or Self Care Attending Physician: Dallas Ryan MD Vital Signs Most recent to 1 oldest [Reference Range]: Height 157.48 cm (05/23/19 3:02 PM) Temperature Oral 98.4 DegF [96.4-99.1 DegF] (05/23/19 3:02 PM) Blood Pressure 95/58 mmHg [90-140/60-90 mmHg] (05/23/19 3:02 PM) Peripheral Pulse 76 bpm Rate [60-100 bpm] (05/23/19 3:02 PM) Weight 68.182 kg (05/23/19 3:02 PM) Body Mass Index 27.49 m2 (05/23/19 3:02 PM) Problem List Condition Effective Dates Status Health Status Informan t 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) 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)1 Other Active atherosclerosis of [place] arteries of extremities, 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) Coronary artery Active disease(Confirmed) Diabetic foot Resolved ulcers(Confirmed) penitentiary (current) Active use of insulin(Confirmed) Charcot-Jenny Resolved disease(Confirmed) Hiatal Active hernia(Confirmed) Hypertension with Active Hypertensive HF and CKD(Confirmed) Left bundle-branch Active block, unspecified(Confirme d) Mild intermittent Active stable asthma(Confirmed) Mixed Active hyperlipidemia(Confi rmed) MRSA(Confirmed)2, 3 02/02/17 Active Primary Active insomnia(Confirmed) Tachycardia(Confirme Resolved d) 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 Allergies, Adverse Reactions, Alerts Substance Reaction Severity Status GYNOPTIC EYE DROPS Active Food Iodine Active Food Shellfish Iodine,Miscellaneous Routes,granules Active iodine1, 2 Active 1Replaced free text allergy 2Added as Codified Medications Advair Diskus 250 mcg-50 mcg inhalation powder 1 puff, INHALATION, BID, # 3 ea, 3 Refill(s), Pharmacy: [id number] Start Date: 05/23/19 Status: Ordered ProAir HFA 90 mcg/inh inhalation aerosol with adapter 2 puff, INHALER, Q4H, PRN wheezing, coughing, or shortness of breath, # 1 ea, 1 Refill(s), Pharmacy: [id number] Start Date: 05/23/19 Status: Ordered Results No data available for this section Immunizations Given and Recorded Vaccine Date Status Refusal Reason pneumococcal 13-valent vaccine1 05/23/19 Given Not Given Vaccine Date Status Refusal Reason pneumococcal 13-valent vaccine 11/05/17 Not Given Patient Refuses 1Result Comment: patient waited 15 min no reaction Procedures Procedure Date Related Diagnosis Body Site Status Amputation Completed Amputation1 Completed Angioplasty Completed Bunionectomy Completed Catheterization Completed Open reduction of fracture of phalanges of Comple julio foot with internal fixation2 Repair of umbilical hernia Completed 12nd toe amputated 2Repair of Charchot's foot, with Plate Social History Social History Type Response Alcohol Current, Type Wine. Freque ncy: 1-2 times per month. Previous treatment: None. Alcohol use interferes with work or home: No. 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 Other: , 2 children. Smoking Status Never smoker; Previous marquita tment: None; Exposure to Tobacco Smoke None; Cigarette Smoking Last 365 Days No; Reg Smoking Cessation Counseling No entered on: 05/23/19 Assessment and Plan No data available for this section
--- OUTSIDE RECORDS SUMMARY | 2020-05-06 21:43 | XMS REPORT | Summary of Care ---
Author Author [facility] Organization [facility] Address Unknown Phone Unavailable Encounter HQ Clifford(FIN) [id number] Date(s): 05/14/18 - 05/14/18 [facility] [address] [place] [address]- [phone] Encounter Diagnosis Atherosclerosis of [place] arteries of right leg with ulceration of other part of foot (Final) - 05/22/18 Non-pressure chronic ulcer of other part of right foot with unspecified severity (Final) - Type 2 diabetes mellitus with diabetic peripheral angiopathy without gangrene (Final) - Type 2 diabetes mellitus with diabetic neuropathic arthropathy (Final) - Essential (primary) hypertension (Final) - Hyperlipidemia, unspecified (Final) - Atherosclerotic heart disease of tang[place]q coronary artery without angina pectoris (Final) - Left bundle-branch block, unspecified (Final) - Unspecified asthma, uncomplicated (Final) - Old myocardial infarction (Final) - intermediate designer (current) use of insulin (Final) - longterm (current) use of antithrombotics/antiplatelets (Final) - Other senior care (current) drug therapy (Final) - Discharge Disposition: Home or Self Care Attending Physician: Sheyla Han MD Referring Physician: Sheyla Han MD Vital Signs 1 2 3 Most recent to oldest [Reference Range]: 160.02 cm (05/14/18 6:00 AM) 160.02 cm (05/10/18 2:32 PM) Height 126/60 mmHg (05/14/18 9:30 AM) 124/62 mmHg (05/14/18 8:40 AM) 127/62 mmHg (05/14/18 8:10 AM) Blood Pressure [90-140/60-90 mmHg] 21 BRMIN *HI* (05/14/18 9:30 AM) 12 BRMIN *LOW* (05/14/18 8:40 AM) 17 BRMIN (05/14/18 8:10 AM) Respiratory Rate [14-20 BRMIN] 71 kg (05/14/18 6:00 AM) 71 kg (05/10/18 2:32 PM) Weight 27.73 m2 (05/14/18 6:00 AM) 27.73 m2 (05/10/18 2:32 PM) Body Mass Index Problem List Condition Effective Dates Status Health Status Informan t Asthma(Confirmed) Resolved Diabetes(Confirmed) Active Diabetic foot Resolved ulcers(Confirmed) Charcot-Jenny Resolved disease(Confirmed) Block, bundle Active branch, left(Confirmed) MRSA(Confirmed)1, 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 Allergies, Adverse Reactions, Alerts Substance Reaction Severity Status GYNOPTIC EYE DROPS Active Food Iodine Active Food Shellfish Iodine,Miscellaneous Routes,granules Active iodine1, 2 Active 1Replaced free text allergy 2Added as Codified Medications acetaminophen-hydrocodone 325 mg-5 mg oral tablet 1 tab, Route: PO, Drug Form: TAB, Dosing Weight 71, kg, Q4H, PRN Pain Score 4-6, Start date: 05/14/18 7:21:00 CDT, Duration: 30 day, Stop date: 06/13/18 7:20:00 CDT Notes: (Same as: [place] 325/5) Do not exceed 4gm/day of acetaminophen. Start Date: 05/14/18 Stop Date: 05/14/18 Status: Discontinued acetaminophen-hydrocodone 325 mg-7.5 mg oral tablet 1 tab, PO, Q4H, PRN Pain Score 1-5, 0 Refill(s) Start Date: 05/10/18 Status: Ordered metoprolol extended release 25 mg, PO, Daily Start Date: 05/10/18 Status: Ordered morphine Sulfate 2 mg, 1 mL, Route: IVP, Drug form: SOLN, Q2H, Dosing Weight 71, kg, PRN Pain Sco re 4-6, Start date: 05/14/18 7:21:00 CDT, Duration: 30 day, Stop date: 06/13/18 7:20:00 CDT Start Date: 05/14/18 Stop Date: 05/14/18 Status: Discontinued nitroglycerin SL Tab 0.4 mg, 1 tab, Route: SL, Drug form: TAB, Q5Min, Dosing Weight 71, kg, PRN Chest Pain, Start date: 05/14/18 7:21:00 CDT, Duration: 3 doses or times, Stop date: Limited # of times Notes: (Same as:Nitroquick, Nitrostat)"Do Not Crush" Sublingual tablet Start Date: 05/14/18 Stop Date: 05/14/18 Status: Discontinued predniSONE 20 mg, PO, BID, Quantity sufficient Start Date: 05/10/18 Status: Ordered ProAir HFA 1 - 2 puffs, PO, Q4H, PRN Wheezing / cough / shortness of breath Start Date: 05/10/18 Status: Ordered Sodium Chloride 0.9% IV 1,000 mL 1,000 mL, Rate: 125 ml/hr, Infuse over: 8 hr, Route: IV, Dosing Weight 71 kg, To paul Volume: 1,000, Start date: 05/10/18 14:32:00 CDT, Duration: 30 day, Stop shirley e: 06/09/18 14:31:00 CDT, 1.8, m2 Start Date: 05/10/18 Stop Date: 05/14/18 Status: Discontinued Sodium Chloride 0.9% IV 500 mL 500 mL, Rate: 125 ml/hr, Infuse over: 4 hr, Route: IV, Dosing Weight 71 kg, Tota l Volume: 500, Start date: 05/14/18 7:21:00 CDT, Duration: 10 hr, Stop date: 04/24 17:20:00 CDT, 1.8, m2 Start Date: 05/14/18 Stop Date: 05/14/18 Status: Completed spironolactone 50 mg oral tablet 50 mg = 1 tab, PO, Daily Start Date: 05/10/18 Stop Date: 08/05/18 Status: Deleted temazepam 15 mg oral capsule 15 mg = 1 cap, PO, Bedtime Start Date: 05/10/18 Status: Ordered Vitamin D2 50,000 IntlUnit, PO, qWeek Start Date: 05/10/18 Status: Ordered ZyrTEC 10 mg, PO, Daily Start Date: 05/10/18 Status: Ordered Results No data available for this section Immunizations Not Given Vaccine Date Status Refusal Reason pneumococcal 13-valent vaccine 11/05/17 Not Given Patient Refuses Procedures Procedure Date Related Diagnosis Body Site Status Amputation Completed Angioplasty Completed Foot incision Completed Repair of umbilical hernia Completed Umbilical Hernia repair Completed Social History Social History Type Response Alcohol Current, Type Wine. Freque ncy: 1-2 times per month. Previous treatment: None. Alcohol use interferes with work or home: No. Smoking Status Never smoker; Previous marquita tment: None; Exposure to Tobacco Smoke None; Cigarette Smoking Last 365 Days No; Reg Smoking Cessation Counseling No entered on: 08/08/18 Assessment and Plan No data available for this section
--- OUTSIDE RECORDS SUMMARY | 2020-05-06 21:43 | XMS REPORT | Summary of Care ---
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 Other: , 2 children. Smoking Status Never smoker; Previous marquita tment: None; Exposure to Tobacco Smoke None; Cigarette Smoking Last 365 Days No; Reg Smoking Cessation Counseling No entered on: 05/23/19 Assessment and Plan No data available for this section
--- OUTSIDE RECORDS SUMMARY | 2020-05-06 21:43 | XMS REPORT | Summary of Care ---
Author Author [facility] Organization [facility] Address Unknown Phone Unavailable Encounter HQ Clifford(FIN) [phone] Date(s): 11/04/17 - 11/05/17 [facility] [address] [place] [address]- S [phone] Encounter Diagnosis Hypertensive heart disease with heart failure (Final) - 11/09/17 Acute on chronic systolic (congestive) heart failure (Final) - Type 2 diabetes mellitus with diabetic peripheral angiopathy without gangrene (Final) - Paroxysmal atrial fibrillation (Final) - Iron deficiency anemia, unspecified (Final) - Unspecified asthma, uncomplicated (Final) - Atherosclerotic heart disease of crow coronary artery without angina pectoris (Final) - Type 2 diabetes mellitus with diabetic polyneuropathy (Final) - Hyperlipidemia, unspecified (Final) - Diaphragmatic hernia without obstruction or gangrene (Final) - Left bundle-branch block, unspecified (Final) - Hypokalemia (Final) - Nonrheumatic mitral (valve) insufficiency (Final) - USP (current) use of antithrombotics/antiplatelets (Final) - Discharge Disposition: Home or Self Care Attending Physician: Karyn Aguirre MD Admitting Physician: Karyn Aguirre MD Vital Signs 1 2 3 Most recent to oldest [Reference Range]: 160.02 cm (11/04/17 10:24 AM) Height 98.1 DegF (11/05/17 11:39 AM) 97.8 DegF (11/05/17 7:35 AM) 98.0 DegF (11/05/17 4:10 AM) Temperature Oral [96.4-99.1 DegF] 119/72 mmHg (11/05/17 11:39 AM) 129/78 mmHg (11/05/17 7:35 AM) 126/70 mmHg (11/05/17 4:10 AM) Blood Pressure [90-140/60-90 mmHg] 16 BRMIN (11/05/17 12:29 PM) 18 BRMIN (11/05/17 11:39 AM) 17 BRMIN (11/05/17 7:35 AM) Respiratory Rate [14-20 BRMIN] 90 bpm (11/05/17 11:39 AM) 85 bpm (11/05/17 7:35 AM) 83 bpm (11/05/17 4:10 AM) Peripheral Pulse Rate [60-100 bpm] 75 kg (11/04/17 5:25 PM) 75 kg (11/04/17 10:24 AM) Weight 29.29 m2 (11/04/17 10:24 AM) Body Mass Index Problem List Condition Effective Dates Status Health Status Informan t Diabetes(Confirmed) Active Diabetic foot Resolved ulcers(Confirmed) Block, bundle Active branch, left(Confirmed) MRSA(Confirmed)1, 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 Allergies, Adverse Reactions, Alerts Substance Reaction Severity Status GYNOPTIC EYE DROPS Active Food Iodine Active Food Shellfish Iodine,Miscellaneous Routes,granules Active iodine1, 2 Active 1Replaced free text allergy 2Added as Codified Medications acetaminophen 650 mg, 2 tab, Route: PO, Drug form: TAB, Q4H, Dosing Weight 75, kg, PRN Pain 1- 3/Temp > 100.4 F, Start date: 11/04/17 17:18:00 [employer], Duration: 30 day, Stop date: 12/04/17 17:17:00 [employer] Notes: Do not exceed 4 gm/day. (Same as: Tylenol) Start Date: 11/04/17 Stop Date: 11/05/17 Status: Discontinued acetaminophen-hydrocodone 325 mg-5 mg oral tablet 2 tab, Route: PO, Drug Form: TAB, Dosing Weight 75, kg, Q4H, PRN Pain Score 7-10 , Start date: 11/04/17 17:18:00 [employer], Duration: 30 day, Stop date: 12/04/17 17:17 :00 [employer] Notes: (Same as: [place] 325/5) Do not exceed 4gm/day of acetaminophen. Start Date: 11/04/17 Stop Date: 11/05/17 Status: Discontinued albuterol-ipratropium 2.5-0.5 mg inhalation solution 3 mL, Route: NEB, Drug Form: SOLN, Dosing Weight 75, kg, RQ6H, PRN Allergies, St art date: 11/05/17 10:53:00 [employer], Stop date: 12/05/17 10:52:00 [employer] Notes: (Same as: Duoneb) Start Date: 11/05/17 Stop Date: 11/05/17 Status: Discontinued aspirin 81 mg tablet, enteric coated 81 mg, 1 tab, Route: PO, Drug form: ECTAB, Daily, Dosing Weight 75, kg, Start da te: 11/06/17 9:00:00 [employer], Duration: 30 day, Stop date: 12/05/17 9:00:00 [employer] Notes: Do not crush or chew.(Same As: Ecotrin) Start Date: 11/06/17 Stop Date: 11/05/17 Status: Canceled aspirin 81 mg tablet, enteric coated 81 mg = 1 tab, PO, Daily, 0 Refill(s) Start Date: 11/05/17 Status: Ordered atorvastatin 40 mg, 1 tab, Route: PO, Drug form: TAB, Bedtime, Dosing Weight 75, kg, Start da te: 11/05/17 21:00:00 [employer], Duration: 30 day, Stop date: 12/04/17 21:00:00 [employer] Notes: (Same as: Lipitor) Start Date: 11/05/17 Stop Date: 11/05/17 Status: Canceled clopidogrel 75 mg, 1 tab, Route: PO, Drug form: TAB, Daily, Dosing Weight 75, kg, Start date : 11/06/17 9:00:00 [employer], Duration: 30 day, Stop date: 12/05/17 9:00:00 [employer] Notes: (Same As: Plavix) Start Date: 11/06/17 Stop Date: 11/05/17 Status: Canceled Dextrose 50% Syringe 25 gm, 50 mL, Route: IVP, Drug Form: INJ, Dosing Weight 75, kg, PRN, PRN Blood G lucose Results, Start date: 11/04/17 17:25:00 [employer], Duration: 30 day, Stop date: 12/04/17 17:24:00 [employer] Start Date: 11/04/17 Stop Date: 11/05/17 Status: Discontinued Dextrose 50% Syringe 12.5 gm, 25 mL, Route: IVP, Drug Form: INJ, Dosing Weight 75, kg, PRN, PRN Blood Glucose Results, Start date: 11/04/17 17:25:00 [employer], Duration: 30 day, Stop date: 12/04/17 17:24:00 [employer] Start Date: 11/04/17 Stop Date: 11/05/17 Status: Discontinued furosemide 20 mg oral tablet 20 mg, 1 tab, Route: PO, Drug form: TAB, Daily, Dosing Weight 75, kg, Priority: NOW, Start date: 11/05/17 9:05:00 [employer], Duration: 30 day, Stop date: 12/05/17 9:0 0:00 [employer] Notes: (Same as: Lasix) May cause GI upset. Give with food or milk. Start Date: 11/05/17 Stop Date: 11/05/17 Status: Discontinued furosemide 20 mg oral tablet 20 mg = 1 tab, PO, Daily, # 30 tab, 0 Refill(s), Pharmacy: [facility] [id number] Start Date: 11/05/17 Stop Date: 12/05/17 Status: Ordered glucagon 1 mg, Route: IM, Drug form: PDR/INJ, PRN, Dosing Weight 75, kg, PRN Blood Glucos e Results, Start date: 11/04/17 17:25:00 [employer], Duration: 30 day, Stop date: 12/04 17:24:00 [employer] Start Date: 11/04/17 Stop Date: 11/05/17 Status: Discontinued insulin lispro 5 unit, 0.05 mL, Route: SUB-Q, Drug form: SOLN, TID-Before Meals, Dosing Weight 75, kg, PRN Blood Glucose Results, Start date: 11/04/17 17:25:00 [employer], Duration: 30 day, Stop date: 12/04/17 17:24:00 [employer] Notes: Roll in palms of hands gently; Do not shake `vigorously. (Same as: Vy og )"Single Patient Use Only "WASTE: F/P - Black; E - Municipal Trash Bin Stabl e for 28 days at room temperature.Expires in days from Date Start Date: 11/04/17 Stop Date: 11/05/17 Status: Discontinued insulin lispro 3 unit, 0.03 mL, Route: SUB-Q, Drug form: SOLN, TID-Before Meals, Dosing Weight 75, kg, PRN Blood Glucose Results, Start date: 11/04/17 17:25:00 [employer], Duration: 30 day, Stop date: 12/04/17 17:24:00 [employer] Notes: Roll in palms of hands gently; Do not shake `vigorously. (Same as: Hum[place] og )"Single Patient Use Only "WASTE: F/P - Black; E - Municipal Trash Bin Stabl e for 28 days at room temperature.Expires in days from Date Start Date: 11/04/17 Stop Date: 11/05/17 Status: Discontinued insulin lispro 4 unit, 0.04 mL, Route: SUB-Q, Drug form: SOLN, TID-Before Meals, Dosing Weight 75, kg, PRN Blood Glucose Results, Start date: 11/04/17 17:25:00 [employer], Duration: 30 day, Stop date: 12/04/17 17:24:00 [employer] Notes: Roll in palms of hands gently; Do not shake `vigorously. (Same as: Vy og )"Single Patient Use Only "WASTE: F/P - Black; E - Municipal Trash Bin Stabl e for 28 days at room temperature.Expires in days from Date Start Date: 11/04/17 Stop Date: 11/05/17 Status: Discontinued insulin lispro 2 unit, 0.02 mL, Route: SUB-Q, Drug form: SOLN, TID-Before Meals, Dosing Weight 75, kg, PRN Blood Glucose Results, Start date: 11/04/17 17:25:00 [employer], Duration: 30 day, Stop date: 12/04/17 17:24:00 [employer] Notes: Roll in palms of hands gently; Do not shake `vigorously. ([facility]: [facility] )"Single Patient Use Only "WASTE: F/P - Black; E - Municipal Trash Bin Stabl e for 28 days at room temperature.Expires in days from Date Start Date: 11/04/17 Stop Date: 11/05/17 Status: Discontinued insulin lispro 1 unit, 0.01 mL, Route: SUB-Q, Drug form: SOLN, TID-Before Meals, Dosing Weight 75, kg, PRN Blood Glucose Results, Start date: 11/04/17 17:25:00 [employer], Duration: 30 day, Stop date: 12/04/17 17:24:00 [employer] Notes: Roll in palms of hands gently; Do not shake `vigorously. (Same as: Vy og )"Single Patient Use Only "WASTE: F/P - Black; E - Municipal Trash Bin Stabl e for 28 days at room temperature.Expires in days from Date Start Date: 11/04/17 Stop Date: 11/05/17 Status: Discontinued Lasix 20 mg, Route: IVP, Drug form: INJ, ONCE, Dosing Weight 75, kg, Priority: STAT, S tart date: 11/04/17 14:51:00 [employer], Stop date: 11/04/17 14:51:00 [employer] Start Date: 11/04/17 Stop Date: 11/04/17 Status: Completed Lasix 20 mg, Route: IVP, Drug form: INJ, ONCE, Dosing Weight 75, kg, Priority: STAT, S tart date: 11/04/17 14:59:00 [employer], Stop date: 11/04/17 14:59:00 [employer] Start Date: 11/04/17 Stop Date: 11/04/17 Status: Completed lisinopril 2.5 mg, 0.5 tab, Route: PO, Drug form: TAB, Daily, Dosing Weight 75, kg, Start d ate: 11/06/17 9:00:00 [employer], Duration: 30 day, Stop date: 12/05/17 9:00:00 [employer] Notes: (Same as: iviris Zestril) Start Date: 11/06/17 Stop Date: 11/05/17 Status: Canceled lisinopril 5 mg oral tablet 2.5 mg = 0.5 tab, PO, Daily, 0 Refill(s) Start Date: 11/05/17 Status: Ordered Lovenox 30 mg, 0.3 mL, Route: SUB-Q, Drug form: INJ, Daily, Dosing Weight 75, kg, Start date: 11/05/17 9:00:00 [employer], Duration: 30 day, Stop date: 12/04/17 9:00:00 [employer] Notes: (Same as: Lovenox) Start Date: 11/05/17 Stop Date: 11/05/17 Status: Discontinued Lovenox 40 mg, Route: SUB-Q, Drug form: INJ, [id number], Dosing Weight 75, kg, Start date: 11/04/17 18:00:00 [employer], Duration: 30 day, Stop date: 12/03/17 18:00:00 [employer] Start Date: 11/04/17 Stop Date: 11/04/17 Status: Canceled pneumococcal 13-valent vaccine 0.5 mL, Route: IM, Drug Form: INJ, Daily, Start date: 11/05/17 9:00:00 [employer], Dura tion: 1 doses or times, Stop date: 11/05/17 9:00:00 [employer] Notes: Shake well prior to use (Same as: Prevnar 13) Start Date: 11/05/17 Stop Date: 11/05/17 Status: Completed Saline Flush 0.9% 10 mL, Route: IVP, Drug Form: INJ, Dosing Weight 75, kg, PRN, PRN Line Flush, St art date: 11/04/17 10:29:00 [employer], Duration: 30 day, Stop date: 12/04/17 10:28:00 [employer] Notes: preservative free. Start Date: 11/04/17 Stop Date: 11/05/17 Status: Discontinued spironolactone 25 mg, 1 tab, Route: PO, Drug form: TAB, Daily, Dosing Weight 75, kg, Priority: NOW, Start date: 11/05/17 9:05:00 [employer], Duration: 30 day, Stop date: 12/05/17 9:0 0:00 [employer] INS[employer] Notes: (Same As: Aldactone) Start Date: 11/05/17 Stop Date: 11/05/17 Status: Discontinued spironolactone 25 mg oral tablet 25 mg = 1 tab, PO, Daily, # 30 tab, 0 Refill(s), Pharmacy: [facility] [id number] Start Date: 11/05/17 Stop Date: 12/05/17 Status: Ordered Results ELECTROLYTES 1 2 3 Most recent to oldest [Reference Range]: 138 mEq/L (11/04/17 11:56 PM) 139 mEq/L (11/04/17 10:41 AM) Sodium Lvl [135-145 mEq/L] 3.5 mEq/L (11/04/17 11:56 PM) 4.1 mEq/L (11/04/17 10:41 AM) Potassium Lvl [3.5-5.1 mEq/L] 103 mEq/L (11/04/17 11:56 PM) 105 mEq/L (11/04/17 10:41 AM) Chloride Lvl [95-109 mEq/L] 30 mEq/L (11/04/17 11:56 PM) 26 mEq/L (11/04/17 10:41 AM) CO2 [24-32 mEq/L] 8.5 mEq/L *LOW* (11/04/17 11:56 PM) 12.1 mEq/L (11/04/17 10:41 AM) AGAP [10.0-20.0 mEq/L] CHEM PANEL 1 2 3 Most recent to oldest [Reference Range]: 0.94 mg/dL (11/04/17 11:56 PM) 0.92 mg/dL (11/04/17 10:41 AM) Creatinine Lvl [0.50-1.40 mg/dL] 62 mL/min/1.73m2 1 *NA* (11/04/17 11:56 PM) 64 mL/min/1.73m2 2 *NA* (11/04/17 10:41 AM) eGFR 12 mg/dL (11/04/17 11:56 PM) 12 mg/dL (11/04/17 10:41 AM) BUN [7-22 mg/dL] 13 (11/04/17 11:56 PM) 13 (11/04/17 10:41 AM) B/C Ratio [6-25] 125 mg/dL *HI* (11/04/17 11:56 PM) 147 mg/dL *HI* (11/04/17 10:41 AM) Glucose Lvl [70-99 mg/dL] 7.0 g/dL (11/04/17 11:56 PM) 7.5 g/dL (11/04/17 10:41 AM) Total Protein [6.4-8.4 g/dL] 3.2 g/dL *LOW* (11/04/17 11:56 PM) 3.3 g/dL *LOW* (11/04/17 10:41 AM) Albumin Lvl [3.5-5.0 g/dL] 3.8 g/dL (11/04/17 11:56 PM) 4.2 g/dL (11/04/17 10:41 AM) Globulin [2.7-4.2 g/dL] 0.8 (11/04/17 11:56 PM) 0.8 (11/04/17 10:41 AM) A/G Ratio [0.7-1.6] 8.4 mg/dL *LOW* (11/04/17 11:56 PM) 8.4 mg/dL *LOW* (11/04/17 10:41 AM) Calcium Lvl [8.5-10.5 mg/dL] 2.6 mg/dL (11/04/17 11:56 PM) Phosphorus [2.5-4.5 mg/dL] 1.9 mg/dL (11/04/17 11:56 PM) Magnesium Lvl [1.8-2.4 mg/dL] 20 unit/L (11/04/17 11:56 PM) 22 unit/L (11/04/17 10:41 AM) ALT [0-65 unit/L] 31 unit/L (11/04/17 11:56 PM) 31 unit/L (11/04/17 10:41 AM) AST [0-37 unit/L] 100 unit/L (11/04/17 11:56 PM) 113 unit/L (11/04/17 10:41 AM) Alk Phos [39-136 unit/L] 1.2 mg/dL (11/04/17 11:56 PM) 1.3 mg/dL (11/04/17 10:41 AM) Bili Total [0.2-1.3 mg/dL] 49 unit/L *LOW* (1/28/18 10:41 AM) Lipase Lvl [73-393 unit/L] 1.1 mMol/L (11/04/17 3:52 PM) Lactic Acid Lvl [0.5-2.2 mMol/L] 1Result Comment: The eGFR is calculated using the CKD-EPI formula. In most young, healthy individuals the eGFR will be >90 mL/min/1.73m2. The eGFR declines with age. An eGFR of 60-89 may be normal in some populations, particularly the elderly, for whom the CKD-EPI formula has not been extensively validated. Use of the eGFR is not recommended in the following populations: Individuals with unstable creatinine concentrations, including patients and those with serious co-morbid conditions. Patients with extremes in muscle mass or diet. The data above are obtained from the National Kidney Disease Education Program ( NKDEP) which additionally recommends that when the eGFR is used in patients with extremes of body mass index for purposes of drug dosing, the eGFR should be mul tiplied by the estimated BMI. 2Result Comment: The eGFR is calculated using the CKD-EPI formula. In most young, healthy individuals the eGFR will be >90 mL/min/1.73m2. The eGFR declines with age. An eGFR of 60-89 may be normal in some populations, particularly the elderly, for whom the CKD-EPI formula has not been extensively validated. Use of the eGFR is not recommended in the following populations: Individuals with unstable creatinine concentrations, including patients and those with serious co-morbid conditions. Patients with extremes in muscle mass or diet. The data above are obtained from the National Kidney Disease Education Program ( NKDEP) which additionally recommends that when the eGFR is used in patients with extremes of body mass index for purposes of drug dosing, the eGFR should be mul tiplied by the estimated BMI. CARDIAC ENZYMES 1 2 3 Most recent to oldest [Reference Range]: 95 unit/L (11/04/17 10:41 AM) Total CK [12-191 unit/L] 1.9 ng/mL (11/04/17 10:41 AM) CK MB [0.5-3.6 ng/mL] 2.0 (11/04/17 10:41 AM) CK MB Index [0.0-2.5] 0.03 ng/mL (11/04/17 11:56 PM) 0.03 ng/mL (11/04/17 5:52 PM) 0.02 ng/mL (11/04/17 10:41 AM) Troponin-I [0.00-0.40 ng/mL] 54742 pg/mL *HI* (11/04/17 10:41 AM) proBNP [0-125 pg/mL] LIPIDS 1 2 3 Most recent to oldest [Reference Range]: 2.76 *LOW* (11/04/17 11:56 PM) CHD Risk [3.90-5.80] 141 mg/dL (11/04/17 11:56 PM) Chol [<=199 mg/dL] 76 mg/dL (11/04/17 11:56 PM) Trig [<=149 mg/dL] 51 mg/dL *LOW* (11/04/17 11:56 PM) HDL [>=61 mg/dL] 75 mg/dL (11/04/17 11:56 PM) LDL (Calculated) [<=99 mg/dL] 15 *NA* (11/04/17 11:56 PM) VLDL SPECIAL CHEMISTRY 1 2 3 Most recent to oldest [Reference Range]: 7.3 % *HI* (11/04/17 11:56 PM) Hgb A1C [<=5.6 %] URINE AND STOOL 1 2 3 Most recent to oldest [Reference Range]: Clear (11/05/17 10:08 AM) UA Turbidity [Clear] Yellow *NA* (11/05/17 10:08 AM) UA Color [Yellow] 5.0 (11/05/17 10:08 AM) UA pH [5.0-8.0] 1.011 (11/05/17 10:08 AM) UA Spec Grav [<=1.030] Negative mg/dL *NA* (11/05/17 10:08 AM) UA Glucose [Negative mg/dL] Negative (11/05/17 10:08 AM) UA Blood [Negative] Negative mg/dL *NA* (11/05/17 10:08 AM) UA Ketones [Negative mg/dL] Negative mg/dL (11/05/17 10:08 AM) UA Protein [Negative mg/dL] <=1.0 mg/dL *NA* (11/05/17 10:08 AM) UA Urobilinogen [0.1-1.0 mg/dL] Negative *NA* (11/05/17 10:08 AM) UA Bili [Negative] Negative (11/05/17 10:08 AM) UA Leuk Est [Negative] Negative (11/05/17 10:08 AM) UA Nitrite [Negative] 2 /HPF (11/05/17 10:08 AM) UA WBC [0-5 /HPF] 1 /HPF (11/05/17 10:08 AM) UA RBC [0-2 /HPF] Occasional /LPF *NA* (11/05/17 10:08 AM) UA Sq Epi [Few /LPF] 4 /LPF *HI* (11/05/17 10:08 AM) UA Hyal Cast [0-2 /LPF] Few /LPF *NA* (11/05/17 10:08 AM) UA Mucus [None Seen /LPF] HEMATOLOGY 1 2 3 Most recent to oldest [Reference Range]: 7.9 K/CMM (11/04/17 11:56 PM) 6.9 K/CMM (11/04/17 10:41 AM) WBC [3.7-10.4 K/CMM] 4.94 M/CMM (11/04/17 11:56 PM) 4.78 M/CMM (11/04/17 10:41 AM) RBC [4.20-5.40 M/CMM] 9.9 g/dL *LOW* (11/04/17 11:56 PM) 9.6 g/dL *LOW* (11/04/17 10:41 AM) Hgb [12.0-16.0 g/dL] 31.8 % *LOW* (11/04/17 11:56 PM) 31.0 % *LOW* (11/04/17 10:41 AM) Hct [36.0-48.0 %] 64.3 fL *LOW* (11/04/17 11:56 PM) 64.8 fL *LOW* (11/04/17 10:41 AM) MCV [80.0-98.0 fL] 20.0 pg *LOW* (11/04/17 11:56 PM) 20.1 pg *LOW* (11/04/17 10:41 AM) MCH [27.0-31.0 pg] 31.1 g/dL *LOW* (11/04/17 11:56 PM) 31.0 g/dL *LOW* (11/04/17 10:41 AM) MCHC [32.0-36.0 g/dL] 21.2 % *HI* (11/04/17 11:56 PM) 21.0 % *HI* (11/04/17 10:41 AM) RDW [11.5-14.5 %] 7.0 fL *LOW* (11/04/17 11:56 PM) 7.2 fL *LOW* (11/04/17 10:41 AM) MPV [7.4-10.4 fL] 485 K/CMM *HI* (11/04/17 11:56 PM) 457 K/CMM *HI* (11/04/17 10:41 AM) Platelet [133-450 K/CMM] 58.4 % (11/04/17 11:56 PM) 64.5 % (11/04/17 10:41 AM) Segs [45.0-75.0 %] 28.8 % (11/04/17 11:56 PM) 24.6 % (11/04/17 10:41 AM) Lymphocytes [20.0-40.0 %] 8.3 % (11/04/17 11:56 PM) 8.0 % (11/04/17 10:41 AM) Monocytes [2.0-12.0 %] 3.5 % (11/04/17 11:56 PM) 2.0 % (11/04/17 10:41 AM) Eosinophils [0.0-4.0 %] 1.0 % (11/04/17 11:56 PM) 0.9 % (11/04/17 10:41 AM) Basophils [0.0-1.0 %] 4.6 K/CMM (11/04/17 11:56 PM) 4.4 K/CMM (11/04/17 10:41 AM) Segs-Bands # [1.5-8.1 K/CMM] 2.3 K/CMM (11/04/17 11:56 PM) 1.7 K/CMM (11/04/17 10:41 AM) Lymphocytes # [1.0-5.5 K/CMM] 0.7 K/CMM (11/04/17 11:56 PM) 0.6 K/CMM (11/04/17 10:41 AM) Monocytes # [0.0-0.8 K/CMM] 0.3 K/CMM (11/04/17 11:56 PM) 0.1 K/CMM (11/04/17 10:41 AM) Eosinophils # [0.0-0.5 K/CMM] 0.1 K/CMM (11/04/17 11:56 PM) 0.1 K/CMM (11/04/17 10:41 AM) Basophils # [0.0-0.2 K/CMM] 3+ *NA* (11/04/17 11:56 PM) 3+ *NA* (11/04/17 10:41 AM) Microcyte [None Seen] MOLECULAR DIAGNOSTIC 1 2 3 Most recent to oldest [Reference Range]: Not Detected (11/04/17 3:52 PM) S. aureus [Not Detected] Detected *ABN* (11/04/17 3:52 PM) S. epidermidis [Not Detected] Not Detected (11/04/17 3:52 PM) S. lugdunensis [Not Detected] Not Detected (11/04/17 3:52 PM) S. anginosus grp [Not Detected] Not Detected (11/04/17 3:52 PM) S. agalactiae [Not Detected] Not Detected (11/04/17 3:52 PM) S. pneumoniae [Not Detected] Not Detected (11/04/17 3:52 PM) S. pyogenes [Not Detected] Not Detected (11/04/17 3:52 PM) E. faecalis [Not Detected] Not Detected (11/04/17 3:52 PM) E. faecium [Not Detected] Detected *ABN* (11/04/17 3:52 PM) Staphylococcus spp. [Not Detected] Not Detected (11/04/17 3:52 PM) Streptococcus spp. [Not Detected] Not Detected (11/04/17 3:52 PM) Listeria spp. [Not Detected] Detected *ABN* (11/04/17 3:52 PM) mecA Methicillin Resistance [Not Detected] Not Detected (11/04/17 3:52 PM) Naseem Vancomycin Resistance [Not Detected] Not Detected (11/04/17 3:52 PM) vanB Vancomycin Resistance [Not Detected] Immunizations Not Given Vaccine Date Status Refusal Reason pneumococcal 13-valent vaccine 11/05/17 Not Given Patient Refuses Procedures Procedure Date Related Diagnosis Body Site Status Mulitple Foot Sugeries Completed Umbilical Hernia repair Completed Social History Social History Type Response Alcohol Current, Type Wine. Freque ncy: 1-2 times per month. Previous treatment: None. 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 Author: Tee Minor Date : 11/05/17 Curtis MARTINEZ I was contacted by the labs to for siddharth morris report. Patient already discharged. Blood culture came back positive (1 out of 3 battles): gram-positive cocci in cluster. Review of patient's chart, most likely contamination. Nevertheless patient will be contacted to advise him to come to emergency room to redraw the blood culture. I called the phone number in the medical records, I spoke to the patient and informed about the result. She states that he has no fever. She is advised to come to emergency room to redraw blood cultures. OA was informed. Extracted from: Title: History and Physical Author: Karyn Aguirre MD Date : 11/04/17 67-year-old woman with past medical hist ory of hypertension, type 2 diabetes,osteomyelitis status post excision of 2 toe ofright foot,prior history of endocarditispresented with increased lower extremity swelling, mild CHF exacerbation. Increased lower extremity swelling Systolic congestive heart failure Hypertension Type 2 diabetes mellitus History of endocarditisand osteomyelitis Left bundle branch block Plan: -Lower extremity edema most likely secon rigo to mildworsening of CHF in the setting of decreased dose of Lasix, however no chest pain or shortness of breath reported -EKGunchanged from prior -We will check troponin 3, monitor telemetry, check echo cardiac -Received 40 mg IV Lasix in the ER, nitish tor and repeat dosing in am -Cardiology consult -We will getDoppler ultrasound of lowe r extremity to rule out DVT -We will start insulin sliding scale for control of diabetes mellitus -Blood pressure currently stable, resume home medication -Continue with home aspirin and Plavix -DVT prophylaxis Lovenox Code full Diet diabetic Disposition:Despite 1 midnight stay, discharge pending clinical course
--- OUTSIDE RECORDS SUMMARY | 2020-05-06 21:43 | XMS REPORT | Summary of Care ---
Author Author [facility] spital Organization [facility] Address Unknown Phone Unavailable Encounter HQ [email or web address](FIN) [id number] Date(s): 02/01/17 - 02/10/17 [facility] [address] [place] [address]- [facility] [phone] Discharge Disposition: Usp Facility Attending Physician: Wendy Brown MD Admitting Physician: Wendy Brown MD Vital Signs 1 2 3 Most recent to oldest [Reference Range]: 160.02 cm (02/01/17 11:59 PM) Height 98.1 DegF (02/10/17 12:33 PM) 97.7 DegF (02/10/17 7:45 AM) 97.8 DegF (02/10/17 5:02 AM) Temperature Oral [96.4-99.1 DegF] 116/71 mmHg (02/10/17 12:33 PM) 129/69 mmHg (02/10/17 7:45 AM) 113/67 mmHg (02/10/17 5:02 AM) Blood Pressure [90-140/60-90 mmHg] 18 BRMIN (02/10/17 12:33 PM) 18 BRMIN (02/10/17 7:45 AM) 18 BRMIN (02/10/17 7:44 AM) Respiratory Rate [14-20 BRMIN] 98 bpm (02/10/17 12:33 PM) 105 bpm *HI* (02/10/17 7:45 AM) 103 bpm *HI* (02/10/17 5:02 AM) Peripheral Pulse Rate [60-100 bpm] 79.005 kg (02/01/17 11:59 PM) 78.5 kg (02/01/17 8:28 PM) Weight 30.85 m2 (02/01/17 11:59 PM) Body Mass Index Problem List Condition Effective Dates Status Health Status Informan t Diabetes(Confirmed) Active Diabetic foot Resolved ulcers(Confirmed) Block, bundle Active branch, left(Confirmed) MRSA(Confirmed)1, 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 Allergies, Adverse Reactions, Alerts Substance Reaction Severity Status Food Iodine Active Food Shellfish Iodine,Miscellaneous Routes,granules Active GYNOPTIC EYE DROPS Active iodine1, 2 Active 1Replaced free text allergy 2Added as Codified Medications acetaminophen 650 mg, 2 tab, Route: PO, Drug form: TAB, ONCE, Dosing Weight 72.727, kg, Start date: 02/01/17 21:07:00 CDT, Stop date: 02/01/17 21:07:00 CDT Notes: Do not exceed 4 gm/day. (Same as: Tylenol) Start Date: 02/01/17 Stop Date: 02/01/17 Status: Completed acetaminophen 650 mg, 2 tab, Route: PO, Drug form: TAB, Q4H, Dosing Weight 78.5, kg, PRN Pain 1-3/Temp > 100.4 F, Start date: 02/01/17 22:42:00 CDT, Duration: 30 day, Stop date: 03/03/17 22:41:00 CDT Notes: Do not exceed 4 gm/day. (Same as: Tylenol) Start Date: 02/01/17 Stop Date: 02/10/17 Status: Discontinued albuterol-ipratropium 2.5-0.5 mg inhalation solution 3 mL, NEB, Q6H, PRN Allergies, 0 Refill(s) Start Date: 02/08/17 Status: Ordered apixaban 2.5 mg oral tablet 5 mg = 2 tab, PO, Q12H, 0 Refill(s) Start Date: 02/10/17 Status: Ordered aspirin 324 mg, 4 tab, Route: CHEW, Drug form: CHEWTAB, ONCE, Dosing Weight 72.727, kg, Priority: STAT, Start date: 02/01/17 21:43:00 CDT, Stop date: 02/01/17 21:43:00 CDT Notes: Take with food. Start Date: 02/01/17 Stop Date: 02/01/17 Status: Completed aspirin 325 mg tablet, enteric coated 81 mg, 1 tab, Route: PO, Drug form: ECTAB, Daily, Dosing Weight 79.005, kg, Star t date: 02/09/17 9:00:00 CDT, Duration: 30 day, Stop date: 03/10/17 9:00:00 CDT Notes: Do not crush or chew.(Same As: Ecotrin) Start Date: 02/09/17 Stop Date: 02/10/17 Status: Discontinued aspirin 325 mg tablet, enteric coated 325 mg = 1 tab, PO, Daily, 0 Refill(s) Start Date: 02/08/17 Stop Date: 02/10/17 Status: Discontinued aspirin 325 mg tablet, enteric coated 325 mg, 1 tab, Route: PO, Drug form: ECTAB, Daily, Dosing Weight 79.005, kg, Sta rt date: 02/07/17 9:00:00 CDT, Duration: 30 day, Stop date: 03/08/17 9:00:00 CDT Notes: (Do Not Crush) Do not crush or chew. Start Date: 02/07/17 Stop Date: 02/09/17 Status: Discontinued aspirin 81 mg tablet, enteric coated 81 mg = 1 tab, PO, Daily, 0 Refill(s) Start Date: 02/10/17 Status: Ordered aspirin 81 mg tablet, enteric coated 81 mg, 1 tab, Route: PO, Drug form: ECTAB, Daily, Dosing Weight 78.5, kg, Start date: 02/02/17 9:00:00 CDT, Duration: 30 day, Stop date: 03/03/17 9:00:00 CDT Notes: Do not crush or chew.(Same As: Ecotrin) Start Date: 02/02/17 Stop Date: 02/06/17 Status: Discontinued aspirin 81 mg tablet, enteric coated 81 mg, 1 tab, Route: PO, Drug form: ECTAB, Daily, Dosing Weight 79.005, kg, Star t date: 02/10/17 9:00:00 CDT, Duration: 30 day, Stop date: 03/11/17 9:00:00 CDT Notes: Do not crush or chew.(Same As: Ecotrin) Start Date: 02/10/17 Stop Date: 02/10/17 Status: Discontinued atorvastatin 40 mg, 1 tab, Route: PO, Drug form: TAB, Bedtime, Dosing Weight 78.5, kg, Start date: 02/02/17 21:00:00 CDT, Duration: 30 day, Stop date: 03/03/17 21:00:00 CDT Notes: (Same as: Lipitor) Start Date: 02/02/17 Stop Date: 02/10/17 Status: Discontinued atorvastatin 40 mg oral tablet 40 mg = 1 tab, PO, Bedtime, 0 Refill(s) Start Date: 02/10/17 Status: Ordered azithromycin + sodium chloride 0.9% INJ 250 mL 500 mg, Route: IVPB, [id number], Dosing Weight 79.005, kg, Start date: 02/02/17 10: 00:00 CDT, Duration: 30 day, Stop date: 03/03/17 10:00:00 CDT Notes: (Same As: Zithromax IV) Start Date: 02/02/17 Stop Date: 02/03/17 Status: Discontinued calcium carbonate 500 mg (200 mg elemental calcium) oral tablet 500 mg = 1 tab, CHEW, TID, PRN Indigestion, 0 Refill(s) Start Date: 02/10/17 Status: Ordered ceFAZolin + sodium chloride 0.9% INJ 100 mL 2 gm, Route: IVPB, [id number], Dosing Weight 79.005, kg, Start date: 02/04/17 10:00: 00 CDT, Duration: 30 day, Stop date: 03/06/17 0:00:00 CDT Notes: (Same As: Morgan Bright) MEDICATION WASTE Product Size: 1000 mgP roduct Wasted: ___ mg Start Date: 02/04/17 Stop Date: 02/10/17 Status: Discontinued ceFAZolin 2 g/100 mL-NaCl 0.9% intravenous solution See Instructions, ADMINISTER 2gm cefazolin every 8 hours for the next 38 days.Th shayla, # 1 box, 0 Refill(s) Start Date: 02/10/17 Status: Ordered cefepime 1 gm, Route: IVPB, [id number], Dosing Weight 78.5, kg, Priority: STAT, Start date: 02/01/17 22:42:00 CDT, Duration: 30 day, Stop date: 03/03/17 10:42:00 CDT Start Date: 02/01/17 Stop Date: 02/02/17 Status: Discontinued cefepime + sodium chloride 0.9% INJ 100 mL 1 gm, Route: IVPB, ONCE, Dosing Weight 72.727, kg, Priority: STAT, Start date: 0 02/01/17 21:07:00 CDT, Stop date: 02/01/17 21:07:00 CDT Notes: (Same As: Maxipime) MEDICATION WASTE Product Size: 1000 mgProduc t Wasted: ___ mg Start Date: 02/01/17 Stop Date: 02/01/17 Status: Completed clopidogrel 75 mg oral tablet 75 mg = 1 tab, PO, Daily, 0 Refill(s) Start Date: 02/10/17 Status: Ordered Dextrose 50% Syringe 25 gm, 50 mL, Route: IVP, Drug Form: INJ, Dosing Weight 78.5, kg, PRN, PRN Blood Glucose Results, Start date: 02/01/17 23:52:00 CDT, Duration: 30 day, Stop date: 03/03/17 23:51:00 CDT Start Date: 02/01/17 Stop Date: 02/10/17 Status: Discontinued Dextrose 50% Syringe 12.5 gm, 25 mL, Route: IVP, Drug Form: INJ, Dosing Weight 78.5, kg, PRN, PRN Blo od Glucose Results, Start date: 02/01/17 23:52:00 CDT, Duration: 30 day, Stop da te: 03/03/17 23:51:00 CDT Start Date: 02/01/17 Stop Date: 02/10/17 Status: Discontinued Dextrose 50% Syringe 25 mL, Route: IVP, Dosing Weight 78.5, kg, PRN, PRN Blood Glucose Results, Start date: 02/01/17 23:41:00 CDT, Duration: 30 day, Stop date: 03/03/17 23:40:00 CDT Start Date: 02/01/17 Stop Date: 02/01/17 Status: Discontinued Dextrose 50% Syringe 50 mL, Route: IVP, Dosing Weight 78.5, kg, PRN, PRN Blood Glucose Results, Start date: 02/01/17 23:41:00 CDT, Duration: 30 day, Stop date: 03/03/17 23:40:00 CDT Start Date: 02/01/17 Stop Date: 02/01/17 Status: Discontinued DuoNeb inhalation solution 3 ml, Route: NEB, Drug Form: SOLN, Dosing Weight 78.5, kg, PRN, PRN Respiratory Protocol, Start date: 02/01/17 22:47:00 CDT, Duration: 30 day, Stop date: 22:46:00 CDT Notes: (Same as: Duoneb) Start Date: 02/01/17 Stop Date: 02/10/17 Status: Discontinued Eliquis 5 mg, 2 tab, Route: PO, Drug form: TAB, Q12H, Dosing Weight 79.005, kg, Start da te: 02/10/17 9:00:00 CDT, Duration: 30 day, Stop date: 03/11/17 21:00:00 CDT Notes: Same as: Eliquis Start Date: 02/10/17 Stop Date: 02/10/17 Status: Discontinued furosemide 20 mg oral tablet 20 mg, 1 tab, Route: PO, Drug form: TAB, Daily, Dosing Weight 79.005, kg, Priori ty: NOW, Start date: 02/03/17 8:03:00 CDT, Duration: 30 day, Stop date: 03/04/17 9:00:00 CDT Notes: (Same as: Lasix) May cause GI upset. Give with food or milk. Start Date: 02/03/17 Stop Date: 02/08/17 Status: Discontinued glucagon 1 mg, Route: IM, Drug form: PDR/INJ, PRN, Dosing Weight 78.5, kg, PRN Blood Gluc ose Results, Start date: 02/01/17 23:52:00 CDT, Duration: 30 day, Stop date: 23:51:00 CDT Start Date: 02/01/17 Stop Date: 02/10/17 Status: Discontinued glucagon 1 mg, Route: IM, PRN, Dosing Weight 78.5, kg, PRN Blood Glucose Results, Start d ate: 02/01/17 23:41:00 CDT, Duration: 30 day, Stop date: 03/03/17 23:40:00 CDT Start Date: 02/01/17 Stop Date: 02/01/17 Status: Discontinued Heparin - one time bolus for ACS 3,600 unit, 3.6 mL, Route: IVP, Drug form: INJ, ONCE, Dosing Weight 72.727, kg, Priority: STAT, Start date: 02/01/17 21:44:00 CDT, Stop date: 02/01/17 21:44:00 CDT Start Date: 02/01/17 Stop Date: 02/01/17 Status: Completed Heparin 30 unit/kg Bolus (Heparin Dosing Weight) Route: IVP, PRN, 1,900 unit, 1.9 mL, Drug form: INJ, PRN, Heparin Protocol, Star t date: 02/01/17 21:44:00 CDT Stop date: 03/03/17 21:43:00 CDT Start Date: 02/01/17 Stop Date: 02/03/17 Status: Discontinued Heparin 60 unit/kg Bolus (Heparin Dosing Weight) Route: IVP, PRN, 3,800 unit, 3.8 mL, Drug form: INJ, PRN, Heparin Protocol, Star t date: 02/01/17 21:44:00 CDT Stop date: 03/03/17 21:43:00 CDT Start Date: 02/01/17 Stop Date: 02/03/17 Status: Discontinued heparin additive 25,000 unit [12 unit/kg/hr] + Premix Diluent Dextrose 5% 500 mL 500 mL, Rate: 15.07 ml/hr, Infuse over: 33.2 hr, Route: IV, Dosing Weight 62.8 k g, Total Volume: 500 mL, Start date: 02/01/17 21:44:00 CDT, Stop date: 03/03/17 21:43:00 CDT Start Date: 02/01/17 Stop Date: 02/03/17 Status: Discontinued insulin aspart 10 unit, 0.1 mL, Route: SUB-Q, Drug form: SOLN, Sliding Scale, Dosing Weight 78. 5, kg, PRN Blood Glucose Results, Start date: 02/01/17 23:52:00 CDT, Duration: 3 0 day, Stop date: 03/03/17 23:51:00 CDT Notes: Roll in palms of hands gently; Do not shake vigorously. (Same as: Johan Rivera)"single patient use only"WASTE: F/P - Black; E - Municipal Trash Bin Stable f or 28 days at room temperature.Expires in days from Date Start Date: 02/01/17 Stop Date: 02/10/17 Status: Discontinued insulin aspart 6 unit, 0.06 mL, Route: SUB-Q, Drug form: SOLN, Sliding Scale, Dosing Weight 78. 5, kg, PRN Blood Glucose Results, Start date: 02/01/17 23:52:00 CDT, Duration: 3 0 day, Stop date: 03/03/17 23:51:00 CDT Notes: Roll in palms of hands gently; Do not shake vigorously. (Same as: Johan Rivera)"single patient use only"WASTE: F/P - Black; E - Municipal Trash Bin Stable f or 28 days at room temperature.Expires in days from Date Start Date: 02/01/17 Stop Date: 02/10/17 Status: Discontinued insulin aspart 4 unit, 0.04 mL, Route: SUB-Q, Drug form: SOLN, Sliding Scale, Dosing Weight 78. 5, kg, PRN Blood Glucose Results, Start date: 02/01/17 23:52:00 CDT, Duration: 3 0 day, Stop date: 03/03/17 23:51:00 CDT Notes: Roll in palms of hands gently; Do not shake vigorously. (Same as: Johan Rivera)"single patient use only"WASTE: F/P - Black; E - Municipal Trash Bin Stable f or 28 days at room temperature.Expires in days from Date Start Date: 02/01/17 Stop Date: 02/10/17 Status: Discontinued insulin aspart 2 unit, 0.02 mL, Route: SUB-Q, Drug form: SOLN, Sliding Scale, Dosing Weight 78. 5, kg, PRN Blood Glucose Results, Start date: 02/01/17 23:52:00 CDT, Duration: 3 0 day, Stop date: 03/03/17 23:51:00 CDT Notes: Roll in palms of hands gently; Do not shake vigorously. (Same as: NovoANDERSON Rivera)"single patient use only"WASTE: F/P - Black; E - Municipal Trash Bin Stable f or 28 days at room temperature.Expires in days from Date Start Date: 02/01/17 Stop Date: 02/10/17 Status: Discontinued insulin aspart 8 unit, 0.08 mL, Route: SUB-Q, Drug form: SOLN, Sliding Scale, Dosing Weight 78. 5, kg, PRN Blood Glucose Results, Start date: 02/01/17 23:52:00 CDT, Duration: 3 0 day, Stop date: 03/03/17 23:51:00 CDT Notes: Roll in palms of hands gently; Do not shake vigorously. (Same as: Johan Rivera)"single patient use only"WASTE: F/P - Black; E - Municipal Trash Bin Stable f or 28 days at room temperature.Expires in days from Date Start Date: 02/01/17 Stop Date: 02/10/17 Status: Discontinued insulin aspart 2 unit, Route: SUB-Q, Bedtime, Dosing Weight 78.5, kg, PRN Blood Glucose Results , Start date: 02/01/17 23:41:00 CDT, Duration: 30 day, Stop date: 03/03/17 23:40 :00 CDT Start Date: 02/01/17 Stop Date: 02/01/17 Status: Discontinued insulin aspart 3 unit, Route: SUB-Q, Bedtime, Dosing Weight 78.5, kg, PRN Blood Glucose Results , Start date: 02/01/17 23:41:00 CDT, Duration: 30 day, Stop date: 03/03/17 23:40 :00 CDT Start Date: 02/01/17 Stop Date: 02/01/17 Status: Discontinued insulin aspart 1 unit, Route: SUB-Q, Bedtime, Dosing Weight 78.5, kg, PRN Blood Glucose Results , Start date: 02/01/17 23:41:00 CDT, Duration: 30 day, Stop date: 03/03/17 23:40 :00 CDT Start Date: 02/01/17 Stop Date: 02/01/17 Status: Discontinued insulin aspart 4 unit, Route: SUB-Q, TID-Before Meals, Dosing Weight 78.5, kg, PRN Blood Glucos e Results, Start date: 02/01/17 23:41:00 CDT, Duration: 30 day, Stop date: 03/03 23:40:00 CDT Start Date: 02/01/17 Stop Date: 02/01/17 Status: Discontinued insulin aspart 4 unit, Route: SUB-Q, Bedtime, Dosing Weight 78.5, kg, PRN Blood Glucose Results , Start date: 02/01/17 23:41:00 CDT, Duration: 30 day, Stop date: 03/03/17 23:40 :00 CDT Start Date: 02/01/17 Stop Date: 02/01/17 Status: Discontinued insulin aspart 2 unit, Route: SUB-Q, TID-Before Meals, Dosing Weight 78.5, kg, PRN Blood Glucos e Results, Start date: 02/01/17 23:41:00 CDT, Duration: 30 day, Stop date: 03/03 23:40:00 CDT Start Date: 02/01/17 Stop Date: 02/01/17 Status: Discontinued insulin aspart 10 unit, Route: SUB-Q, TID-Before Meals, Dosing Weight 78.5, kg, PRN Blood Gluco se Results, Start date: 02/01/17 23:41:00 CDT, Duration: 30 day, Stop date: 02/06 04/23 23:40:00 CDT Start Date: 02/01/17 Stop Date: 02/01/17 Status: Discontinued insulin aspart 6 unit, Route: SUB-Q, TID-Before Meals, Dosing Weight 78.5, kg, PRN Blood Glucos e Results, Start date: 02/01/17 23:41:00 CDT, Duration: 30 day, Stop date: 03/03 23:40:00 CDT Start Date: 02/01/17 Stop Date: 02/01/17 Status: Discontinued insulin aspart 8 unit, Route: SUB-Q, TID-Before Meals, Dosing Weight 78.5, kg, PRN Blood Glucos e Results, Start date: 02/01/17 23:41:00 CDT, Duration: 30 day, Stop date: 03/03 23:40:00 CDT Start Date: 02/01/17 Stop Date: 02/01/17 Status: Discontinued insulin detemir 10 unit, 0.1 mL, Route: SUB-Q, Drug form: SOLN, Daily, Dosing Weight 79.005, kg, Start date: 02/08/17 18:23:00 CDT, Duration: 30 day, Stop date: 03/10/17 9:00:00 CDT Notes: Same as LevemirDo not hold insulin without contacting prescriberWASTE: F/ P - Black; E - Municipal Trash Bin "single patient use only" Start Date: 02/08/17 Stop Date: 02/10/17 Status: Discontinued insulin detemir 10 unit, 0.1 mL, Route: SUB-Q, Drug form: SOLN, Daily, Dosing Weight 79.005, kg, Start date: 02/02/17 9:00:00 CDT, Duration: 30 day, Stop date: 03/03/17 9:00:00 CDT Notes: Same as LevemirDo not hold insulin without contacting prescriberWASTE: F/ P - Black; E - Municipal Trash Bin "single patient use only" Start Date: 02/02/17 Stop Date: 02/08/17 Status: Voided With Results Insulin regular 10 unit, 0.1 mL, Route: IVP, Drug form: INJ, ONCE, Dosing Weight 72.727, kg, Sujata ority: STAT, Start date: 02/01/17 21:44:00 CDT, Stop date: 02/01/17 21:44:00 CDT Notes: (Same as: NovoLIN R)WASTE: F/P - Black; E - Municipal Trash Bin (Do not shake) Start Date: 02/01/17 Stop Date: 02/01/17 Status: Completed Lasix 40 mg, 4 mL, Route: IVP, Drug form: INJ, ONCE, Dosing Weight 79.005, kg, Start d ate: 02/10/17 7:52:00 CDT, Stop date: 02/10/17 7:52:00 CDT Notes: (Same as: Lasix) MEDICATION WASTE Product Size: 40 mgProduct Was julio: ___ mg Start Date: 02/10/17 Stop Date: 02/10/17 Status: Completed Lasix 20 mg oral tablet 20 mg, 1 tab, Route: PO, Drug form: TAB, BID, Dosing Weight 79.005, kg, Start da te: 02/08/17 17:00:00 CDT, Duration: 30 day, Stop date: 03/10/17 9:00:00 CDT Notes: (Same as: Lasix) May cause GI upset. Give with food or milk. Start Date: 02/08/17 Stop Date: 02/10/17 Status: Discontinued Lasix 20 mg oral tablet 20 mg = 1 tab, PO, BID, 0 Refill(s) Start Date: 02/10/17 Status: Ordered lisinopril 2.5 mg, 0.5 tab, Route: PO, Drug form: TAB, Q12H, Dosing Weight 79.005, kg, Star t date: 02/03/17 9:00:00 CDT, Duration: 30 day, Stop date: 03/04/17 21:00:00 CDT Notes: (Same as: Prinivil, Zestril) Start Date: 02/03/17 Stop Date: 02/10/17 Status: Discontinued lisinopril 5 mg oral tablet 2.5 mg = 0.5 tab, PO, Q12H, 0 Refill(s) Start Date: 02/10/17 Status: Ordered LORazepam 1 mg, 1 tab, Route: PO, Drug form: TAB, ONCE, Dosing Weight 79.005, kg, Priority : STAT, Start date: 02/07/17 14:42:00 CDT, Stop date: 02/07/17 14:42:00 CDT Notes: (Same as: Ativan) Start Date: 02/07/17 Stop Date: 02/07/17 Status: Completed LORazepam 1 mg, 0.5 mL, Route: IVP, Drug form: INJ, ONCE, Dosing Weight 79.005, kg, PRN An xiety, For PICC access, Start date: 02/07/17 13:02:00 CDT Notes: (Same as: Ativan) Start Date: 02/07/17 Stop Date: 02/07/17 Status: Discontinued Maxipime + sodium chloride 0.9% INJ 100 mL 1 gm, Route: IVPB, [id number], Dosing Weight 78.5, kg, Priority: Routine, Start krishan e: 02/02/17 9:00:00 CDT, Duration: 30 day, Stop date: 03/03/17 21:00:00 CDT Start Date: 02/02/17 Stop Date: 02/04/17 Status: Discontinued metoprolol tartrate 12.5 mg, 0.5 tab, Route: PO, Drug form: TAB, Q12H, Dosing Weight 79.005, kg, Sta rt date: 02/03/17 11:00:00 CDT, Duration: 30 day, Stop date: 03/05/17 9:00:00 CD T Notes: (Same as: Lopressor) Start Date: 02/03/17 Stop Date: 02/06/17 Status: Discontinued nitroglycerin 0.4 mg sublingual tablet 0.4 mg = 1 tab, SL, Q5Min, PRN Chest Pain, 0 Refill(s) Start Date: 02/10/17 Status: Ordered nitroglycerin SL Tab 0.4 mg, 1 tab, Route: SL, Drug form: TAB, Q5Min, Dosing Weight 79.005, kg, PRN C hest Pain, Start date: 02/08/17 10:32:00 CDT, Duration: 3 doses or times, Stop d ate: Limited # of times Notes: (Same as:Nitroquick, Nitrostat)"Do Not Crush" Sublingual tablet Start Date: 02/08/17 Stop Date: 02/10/17 Status: Discontinued nitroglycerin SL Tab 0.4 mg, 1 tab, Route: SL, Drug form: TAB, Q5Min, Dosing Weight 78.5, kg, PRN Jasmyn st Pain, Start date: 02/01/17 22:44:00 CDT, Duration: 3 doses or times, Stop krishan e: Limited # of times Notes: (Same as:Nitroquick, Nitrostat)"Do Not Crush" Sublingual tablet Start Date: 02/01/17 Stop Date: 02/08/17 Status: Discontinued [employer] 5/325 oral tablet 1 tab, Route: PO, Drug Form: TAB, Dosing Weight 78.5, kg, Q4H, PRN Pain Score 4- 6, Start date: 02/01/17 22:44:00 CDT, Duration: 30 day, Stop date: 03/03/17 22:4 3:00 CDT Notes: (Same as: [employer] 325/5) Do not exceed 4gm/day of acetaminophen. Start Date: 02/01/17 Stop Date: 02/10/17 Status: Discontinued [employer] 5/325 oral tablet 1 tab, PO, Q4H, PRN Pain Score 4-6, 0 Refill(s) Start Date: 02/10/17 Status: Ordered ondansetron 4 mg, 1 tab, Route: PO, Drug form: TABDIS, Q6H, Dosing Weight 78.5, kg, PRN Naus ea & Vomiting, Start date: 02/01/17 22:44:00 CDT, Duration: 30 day, Stop date: 03/03/17 22:43:00 CDT Notes: (Same as: Zofran ODT) Start Date: 02/01/17 Stop Date: 02/10/17 Status: Discontinued ondansetron 4 mg oral tablet, disintegrating 8 mg, 2 tab, Route: PO, Drug form: TABDIS, ONCE, Dosing Weight 72.727, kg, Prior ity: STAT, Start date: 02/01/17 20:32:00 CDT, Stop date: 02/01/17 20:32:00 CDT Notes: (Same as: Zofran ODT) Start Date: 02/01/17 Stop Date: 02/01/17 Status: Completed ondansetron 4 mg oral tablet, disintegrating 4 mg = 1 tab, PO, Q6H, PRN Nausea & Vomiting, 0 Refill(s) Start Date: 02/10/17 Status: Ordered Plavix 75 mg, 1 tab, Route: PO, Drug form: TAB, Daily, Dosing Weight 79.005, kg, Start date: 02/08/17 10:39:00 CDT, Duration: 30 day, Stop date: 03/10/17 9:00:00 CDT Notes: (Same As: Plavix) Start Date: 02/08/17 Stop Date: 02/10/17 Status: Discontinued Saline Flush 0.9% 10 mL, Route: IVP, Drug Form: INJ, Dosing Weight 72.727, kg, PRN, PRN Line Flush , Start date: 02/01/17 21:07:00 CDT, Duration: 30 day, Stop date: 03/03/17 21:06 :00 CDT Notes: (Same as: BD Posiflush) Start Date: 02/01/17 Stop Date: 02/08/17 Status: Discontinued Saline Flush 0.9% 10 ml, Route: IVP, Drug Form: INJ, Dosing Weight 78.5, kg, PRN, PRN Line Flush, Start date: 02/01/17 22:44:00 CDT, Duration: 30 day, Stop date: 03/03/17 22:43:0 0 CDT Notes: (Same as: BD Posiflush) Start Date: 02/01/17 Stop Date: 02/08/17 Status: Discontinued Saline Flush 0.9% 10 ml, Route: IVP, Drug Form: INJ, Dosing Weight 78.5, kg, Q12H, Start date: 9:00:00 CDT, Duration: 30 day, Stop date: 03/03/17 21:00:00 CDT Notes: (Same as: BD Posiflush) Start Date: 02/02/17 Stop Date: 02/10/17 Status: Discontinued Saline Flush 0.9% 10 ml, Route: IVP, Drug Form: INJ, Dosing Weight 78.5, kg, PRN, PRN Line Flush, Start date: 02/01/17 22:42:00 CDT, Duration: 30 day, Stop date: 03/03/17 22:41:0 0 CDT Notes: (Same as: BD Posiflush) Start Date: 02/01/17 Stop Date: 02/10/17 Status: Discontinued Santyl 1 appl, Route: TOP, Daily, Drug form: OINT, Priority: Stat, Start date: 02/07/17 23:00:00 CDT, Duration: 30 day, Stop date: 03/09/17 9:00:00 CDT Notes: (Same As: Santyl) Start Date: 02/07/17 Stop Date: 02/10/17 Status: Discontinued sodium chloride 0.9% 1000 ml INJ 1,000 mL 1,000 mL, Rate: 100 ml/hr, Infuse over: 10 hr, Route: IV, Dosing Weight 79.005 k g, Total Volume: 1,000, Start date: 02/07/17 23:46:00 CDT, Duration: 30 day, Sto p date: 03/09/17 23:45:00 CDT Start Date: 02/07/17 Stop Date: 02/10/17 Status: Discontinued sodium chloride 0.9% 1000 ml INJ 1,000 mL 1,000 mL, Rate: 125 ml/hr, Infuse over: 8 hr, Route: IV, Dosing Weight 78.5 kg, Total Volume: 1,000, Start date: 02/01/17 22:42:00 CDT, Duration: 30 day, Stop d ate: 03/03/17 22:41:00 CDT Start Date: 02/01/17 Stop Date: 02/03/17 Status: Discontinued Sodium Chloride 0.9% IV 2,000 mL, 1818.18 ml/hr, Infuse Over: 1.1 hr, Route: IV, 2,000, Drug form: INJ, ONCE, Priority: STAT, Dosing Weight 72.727 kg, Start date: 02/01/17 21:07:00 CDT , Duration: 1 doses or times, Stop date: 02/01/17 21:07:00 CDT Start Date: 02/01/17 Stop Date: 02/01/17 Status: Completed spironolactone 25 mg, 1 tab, Route: PO, Drug form: TAB, Daily, Dosing Weight 79.005, kg, Start date: 02/03/17 9:00:00 CDT, Duration: 30 day, Stop date: 03/04/17 9:00:00 CDT Notes: (Same As: Aldactone) Start Date: 02/03/17 Stop Date: 02/10/17 Status: Discontinued spironolactone 25 mg oral tablet 25 mg = 1 tab, PO, Daily, 0 Refill(s) Start Date: 02/10/17 Status: Ordered Symbicort 160/4.5 inhalation aerosol with adapter 2 inhalation, Route: INHALATION, Drug Form: AERO/A, Dosing Weight 79.005, kg, RB ID, Start date: 02/02/17 9:18:00 CDT, Duration: 30 day, Stop date: 03/04/17 8:00 :00 CDT Notes: (Same as: Symbicort)WASTE: Aerosol - Return to Pharmacy Start Date: 02/02/17 Stop Date: 02/10/17 Status: Discontinued Symbicort 160/4.5 inhalation aerosol with adapter 2 inhalation, INHALATION, RBID, 0 Refill(s) Start Date: 02/10/17 Status: Ordered Toprol-XL 25 mg oral tablet, extended release 25 mg, 1 tab, Route: PO, Drug form: ERTAB, BID, Start date: 02/07/17 9:00:00 CDT , Duration: 30 day, Stop date: 03/08/17 17:00:00 CDT Notes: (Same as: Toprol XL) Do Not Crush Start Date: 02/07/17 Stop Date: 02/10/17 Status: Discontinued Toprol-XL 25 mg oral tablet, extended release 25 mg = 1 tab, PO, BID, 0 Refill(s) Start Date: 02/10/17 Status: Ordered Tums 500 mg, 1 tab, Route: CHEW, Drug form: CHEWTAB, TID, Dosing Weight 79.005, kg, P RN Indigestion, Start date: 02/06/17 11:53:00 CDT, Duration: 30 day, Stop date: 03/08/17 11:52:00 CDT Notes: (Same As: Tums)Calcium Carbonate 500 mg = 200 mg elemental calcium Dose = mg calcium carbonate ( mg elemental calcium) Start Date: 02/06/17 Stop Date: 02/10/17 Status: Discontinued vancomycin 1.25 gm, 250 mL, Route: IV, Drug form: INJ, [id number], Dosing Weight 79.005, kg, S tart date: 02/02/17 10:00:00 CDT, Duration: 30 day, Stop date: 03/03/17 22:00:00 CDT Notes: TIME CRITICAL MEDICATIONSame as: Vancocin-NS (premixed)Infusion rate< 1000 mg: infuse over 1 [id number] - 1500 mg: infuse over 1.5 [id number] - 2000 mg: infuse over 2 hours> 2001 mg: infuse over 2.5 hours Start Date: 02/02/17 Stop Date: 02/04/17 Status: Discontinued vancomycin + sodium chloride 0.9% 500 mL INJ (for IV set) 500 mL 1,750 mg, Route: IVPB, ONCE, Dosing Weight 72.727, kg, TIME CRITICAL MEDICATION, Priority: STAT, Start date: 02/01/17 21:07:00 CDT, Stop date: 02/01/17 21:07:00 CDT Notes: TIME CRITICAL MEDICATION(Same As: Vancocin)Infusion rate< 1000 mg: infuse over 1 [id number] - 1500 mg: infuse over 1.5 [id number] - 2000 mg: infuse over 2 hours> 2001 mg: infuse over 2.5 hours MEDICATION WASTE Product Size: 1000 mgProduct Wasted: ___ mg Start Date: 02/01/17 Stop Date: 02/01/17 Status: Completed Vancomycin Pharmacy Dosing 1 ea, Route: MISC, Dosing Weight 78.5, kg, ONCALL, Start date: 02/01/17 23:00:00 CDT, Duration: 1 doses or times, Pharmacy to dose Start Date: 02/01/17 Stop Date: 02/02/17 Status: Deleted Vancomycin Pharmacy Dosing + sodium chloride 0.9% 250 mL INJ (for IV set) 250 mL 1,250 mg, Route: IVPB, [id number], Start date: 02/02/17 22:00:00 CDT, Duration: 30 day, Stop date: 03/03/17 22:00:00 CDT Notes: TIME CRITICAL MEDICATION(Same As: Vancocin)Infusion rate< 1000 mg: infuse over 1 [id number] - 1500 mg: infuse over 1.5 [id number] - 2000 mg: infuse over 2 hours> 2001 mg: infuse over 2.5 hours MEDICATION WASTE Product Size: 1000 mgProduct Wasted: ___ mg Start Date: 02/02/17 Stop Date: 02/02/17 Status: Canceled ZyrTEC 10 mg, PO, Daily, PRN Allergic reaction, 0 Refill(s) Start Date: 02/08/17 Status: Ordered Results ELECTROLYTES 1 2 3 Most recent to oldest [Reference Range]: 141 mEq/L (02/10/17 5:00 AM) 140 mEq/L (02/08/17 4:15 AM) 140 mEq/L (02/07/17 5:34 AM) Sodium Lvl [135-145 mEq/L] 3.8 mEq/L (02/10/17 5:00 AM) 3.8 mEq/L (02/08/17 4:15 AM) 4.1 mEq/L (02/07/17:34 AM) Potassium Lvl [3.5-5.1 mEq/L] 109 mEq/L (02/10/17 5:00 AM) 106 mEq/L (02/08/17 4:15 AM) 108 mEq/L (02/07/17:34 AM) Chloride Lvl [95-109 mEq/L] 23 mEq/L *LOW* (02/10/17 5:00 AM) 25 mEq/L (02/08/17:15 AM) 21 mEq/L *LOW* (02/07/17:34 AM) CO2 [24-32 mEq/L] 12.8 mEq/L (02/10/17 5:00 AM) 12.8 mEq/L (02/08/17:15 AM) 15.1 mEq/L (02/07/17:34 AM) AGAP [10.0-20.0 mEq/L] CHEM PANEL 1 2 3 Most recent to oldest [Reference Range]: 0.90 mg/dL (02/10/17 5:00 AM) 0.90 mg/dL (02/09/17 3:27 AM) 0.86 mg/dL (02/08/17 4:15 AM) Creatinine Lvl [0.50-1.40 mg/dL] 65 mL/min/1.73m2 1 *NA* (02/10/17 5:00 AM) 66 mL/min/1.73m2 2 *NA* (02/09/17 3:27 AM) 70 mL/min/1.73m2 3 *NA* (02/08/17 4:15 AM) eGFR 28 mg/dL *HI* (02/10/17 5:00 AM) 17 mg/dL (02/08/17 4:15 AM) 22 mg/dL (02/07/17 5:34 AM) BUN [7-22 mg/dL] 31 *HI* (02/10/17 5:00 AM) 20 (02/08/17 4:15 AM) 22 (02/07/17 5:34 AM) B/C Ratio [6-25] 198 mg/dL *HI* (02/10/17 5:00 AM) 161 mg/dL *HI* (02/08/17 4:15 AM) 181 mg/dL *HI* (02/07/17 5:34 AM) Glucose Lvl [70-99 mg/dL] 5.7 g/dL *LOW* (02/10/17 5:00 AM) 5.8 g/dL *LOW* (02/08/17 4:15 AM) 6.0 g/dL *LOW* (02/07/17 5:34 AM) Total Protein [6.4-8.4 g/dL] 2.0 g/dL *LOW* (02/10/17 5:00 AM) 2.0 g/dL *LOW* (02/08/17 4:15 AM) 2.0 g/dL *LOW* (02/07/17 5:34 AM) Albumin Lvl [3.5-5.0 g/dL] 3.7 g/dL (02/10/17 5:00 AM) 3.8 g/dL (02/08/17 4:15 AM) 4.0 g/dL (02/07/17 5:34 AM) Globulin [2.7-4.2 g/dL] 0.5 *LOW* (02/10/17 5:00 AM) 0.5 *LOW* (02/08/17 4:15 AM) 0.5 *LOW* (02/07/17 5:34 AM) A/G Ratio [0.7-1.6] 7.4 mg/dL *LOW* (02/10/17 5:00 AM) 7.7 mg/dL *LOW* (02/08/17 4:15 AM) 8.1 mg/dL *LOW* (02/07/17 5:34 AM) Calcium Lvl [8.5-10.5 mg/dL] <6 unit/L (02/10/17 5:00 AM) <6 unit/L (02/08/17 4:15 AM) <6 unit/L (02/07/17 5:34 AM) ALT [0-65 unit/L] 18 unit/L (02/10/17 5:00 AM) 13 unit/L (02/08/17 4:15 AM) 10 unit/L (02/07/17 5:34 AM) AST [0-37 unit/L] 81 unit/L (02/10/17 5:00 AM) 81 unit/L (02/08/17 4:15 AM) 84 unit/L (02/07/17 5:34 AM) Alk Phos [39-136 unit/L] 0.3 mg/dL (02/10/17 5:00 AM) 0.3 mg/dL (02/08/17 4:15 AM) 0.3 mg/dL (02/07/17 5:34 AM) Bili Total [0.2-1.3 mg/dL] 2.0 mMol/L (02/01/17 9:09 PM) Lactic Acid Lvl [0.5-2.2 mMol/L] 1Result [...] be mul tiplied by the estimated BMI. 3Result Comment: The eGFR is calculated using the [...] 3 Most recent to oldest [Reference Range]: 112 unit/L (02/02/17 4:41 AM) 152 unit/L (02/02/17 12:56 AM) Total CK [12-191 unit/L] 2.5 ng/mL (02/02/17 4:41 AM) 1.7 ng/mL (02/02/17 12:56 AM) CK MB [0.5-3.6 ng/mL] 2.2 (02/02/17 4:41 AM) 1.1 (02/02/17 12:56 AM) CK MB Index [0.0-2.5] 2.87 ng/mL 1 *CRIT* (02/02/17 4:41 AM) 2.03 ng/mL 2 *CRIT* (02/02/17 12:56 AM) 1.36 ng/mL 3 *CRIT* (02/01/17 9:09 PM) Troponin-I [0.00-0.40 ng/mL] 1Result Comment: Critical Result(s) called to Bridgett Carr at 02/02/2017 05:29 by tp. Read back OK. 2Result Comment: Critical Result(s) called to Shiva MCMULLEN at 02/02/2017 01:33 by D^2. Read back OK. 3Result Comment: Critical Result(s) called to Wallace Jhaveri at 02/01/2017 21:43 by JL. Consistent with patient's condition. Read back OK. SPECIAL CHEMISTRY 1 2 3 Most recent to oldest [Reference Range]: 9.8 % *HI* (02/02/17 4:51 AM) Hgb A1C [<=5.6 %] TOXICOLOGY 1 2 3 Most recent to oldest [Reference Range]: on hold *NA* (02/04/17 1:44 PM) 1000 *NA* (02/03/17 9:44 AM) Vanco Tr TND 31.1 ug/ml *NA* (02/04/17 1:44 PM) 28.7 ug/ml *NA* (02/03/17 9:44 AM) Vanco Tr URINE AND STOOL 1 2 3 Most recent to oldest [Reference Range]: Slight Cloudy (02/03/17 4:17 AM) UA Turbidity [Clear] Dark Yellow (02/03/17 4:17 AM) UA Color [Yellow] 5.5 (02/03/17 4:17 AM) UA pH [5.0-8.0] >=1.030 *ABN* (02/03/17 4:17 AM) UA Spec Grav [<=1.030] Negative (02/03/17 4:17 AM) UA Glucose [Negative] Negative (02/03/17 4:17 AM) UA Blood [Negative] Trace *ABN* (02/03/17 4:17 AM) UA Ketones [Negative] Trace *ABN* (02/03/17 4:17 AM) UA Protein [Negative] 0.2 EU/dL (02/03/17 4:17 AM) UA Urobilinogen [0.1-1.0 EU/dL] Negative *NA* (02/03/17 4:17 AM) UA Bili [Negative] Negative (02/03/17 4:17 AM) UA Leuk Est [Negative] Negative (02/03/17 4:17 AM) UA Nitrite [Negative] 3-5 /HPF (02/03/17 4:17 AM) UA WBC [None Seen /HPF] 0-2 /HPF (02/03/17 4:17 AM) UA RBC [0-2 /HPF] Moderate /HPF (02/03/17 4:17 AM) UA Bacteria [None Seen /HPF] Few /LPF (02/03/17 4:17 AM) UA Sq Epi [Few /LPF] Occasional /HPF *ABN* (02/03/17 4:17 AM) UA Amorph Haylie [None Seen /HPF] Few /LPF (02/03/17 4:17 AM) UA Mucus [None Seen /LPF] IMMUNOLOGY 1 2 3 Most recent to oldest [Reference Range]: 173.0 mg/L *HI* (02/02/17 4:41 AM) CRP [<=2.9 mg/L] HEMATOLOGY 1 2 3 Most recent to oldest [Reference Range]: 11.0 K/CMM *HI* (02/10/17 5:00 AM) 10.1 K/CMM (02/08/17 4:15 AM) 11.2 K/CMM *HI* (02/07/17 5:34 AM) WBC [3.7-10.4 K/CMM] 3.37 M/CMM *LOW* (02/10/17 5:00 AM) 3.12 M/CMM *LOW* (02/08/17 4:15 AM) 3.41 M/CMM *LOW* (02/07/17 5:34 AM) RBC [4.20-5.40 M/CMM] 8.5 g/dL *LOW* (02/10/17 5:00 AM) 8.3 g/dL *LOW* (02/09/17 3:27 AM) 8.0 g/dL *LOW* (02/08/17 4:15 AM) Hgb [12.0-16.0 g/dL] 26.2 % *LOW* (02/10/17 5:00 AM) 23.9 % *LOW* (02/08/17 4:15 AM) 26.4 % *LOW* (02/07/17 5:34 AM) Hct [36.0-48.0 %] 77.6 fL *LOW* (02/10/17 5:00 AM) 76.7 fL *LOW* (02/08/17 4:15 AM) 77.3 fL *LOW* (02/07/17 5:34 AM) MCV [80.0-98.0 fL] 25.2 pg *LOW* (02/10/17 5:00 AM) 25.6 pg *LOW* (02/08/17 4:15 AM) 25.0 pg *LOW* (02/07/17 5:34 AM) MCH [27.0-31.0 pg] 32.5 g/dL (02/10/17 5:00 AM) 33.4 g/dL (02/08/17 4:15 AM) 32.4 g/dL (02/07/17 5:34 AM) MCHC [32.0-36.0 g/dL] 16.4 % *HI* (02/10/17 5:00 AM) 16.4 % *HI* (02/08/17 4:15 AM) 16.2 % *HI* (02/07/17 5:34 AM) RDW [11.5-14.5 %] 542 K/CMM *HI* (02/10/17 5:00 AM) 491 K/CMM *HI* (02/08/17 4:15 AM) 480 K/CMM *HI* (02/07/17 5:34 AM) Platelet [133-450 K/CMM] 7.4 fL (02/10/17 5:00 AM) 7.5 fL (02/08/17 4:15 AM) 7.9 fL (02/07/17 5:34 AM) MPV [7.4-10.4 fL] 65.0 % (02/10/17 5:00 AM) 63.1 % (02/08/17 4:15 AM) 68.7 % (02/07/17 5:34 AM) Segs [45.0-75.0 %] 4.0 % (02/10/17 5:00 AM) Bands [0.0-11.0 %] 17.0 % *LOW* (02/10/17 5:00 AM) 21.2 % (02/08/17 4:15 AM) 18.0 % *LOW* (02/07/17 5:34 AM) Lymphocytes [20.0-40.0 %] 0.0 % (02/10/17 5:00 AM) Atypical Lymphs [<=0.0 %] 9.0 % (02/10/17 5:00 AM) 10.9 % (02/08/17 4:15 AM) 8.8 % (02/07/17 5:34 AM) Monocytes [2.0-12.0 %] 2.0 % (02/10/17 5:00 AM) 4.1 % *HI* (02/08/17 4:15 AM) 3.7 % (02/07/17 5:34 AM) Eosinophils [0.0-4.0 %] 0.7 % (02/08/17 4:15 AM) 0.8 % (02/07/17 5:34 AM) 0.3 % (02/06/17 5:53 AM) Basophils [0.0-1.0 %] 2.0 % *HI* (02/10/17 5:00 AM) Metamyelocytes [0.0-1.0 %] 1.0 % *HI* (02/10/17 5:00 AM) Myelocytes [<=0.0 %] 7.6 K/CMM (02/10/17 5:00 AM) 6.4 K/CMM (02/08/17 4:15 AM) 7.7 K/CMM (02/07/17 5:34 AM) Segs-Bands # [1.5-8.1 K/CMM] 1.9 K/CMM (02/10/17 5:00 AM) 2.2 K/CMM (02/08/17 4:15 AM) 2.0 K/CMM (02/07/17 5:34 AM) Lymphocytes # [1.0-5.5 K/CMM] 1.0 K/CMM *HI* (02/10/17 5:00 AM) 1.1 K/CMM *HI* (02/08/17 4:15 AM) 1.0 K/CMM *HI* (02/07/17 5:34 AM) Monocytes # [0.0-0.8 K/CMM] 0.2 K/CMM (02/10/17 5:00 AM) 0.4 K/CMM (02/08/17 4:15 AM) 0.4 K/CMM (02/07/17 5:34 AM) Eosinophils # [0.0-0.5 K/CMM] 0.1 K/CMM (02/08/17 4:15 AM) 0.1 K/CMM (02/07/17 5:34 AM) 0.1 K/CMM (02/03/17 4:17 AM) Basophils # [0.0-0.2 K/CMM] See Note (02/10/17 5:00 AM) RBC Morph Slight *Unknown* (02/10/17 5:00 AM) Polychrom 1+ *ABN* (02/08/17 4:15 AM) 1+ *ABN* (02/07/17 5:34 AM) 1+ *ABN* (02/06/17 5:53 AM) Microcyte [None Seen] Normal (02/10/17 5:00 AM) Plt Morph 14.9 seconds *HI* (02/03/17 1:56 AM) 15.2 seconds *HI* (02/02/17 11:03 AM) 14.7 seconds (02/02/17 4:41 AM) PT [12.0-14.7 seconds] 1.15 (02/03/17 1:56 AM) 1.18 *HI* (02/02/17 11:03 AM) 1.13 (02/02/17 4:41 AM) INR [0.85-1.17] 64.4 seconds *HI* (02/03/17 1:56 AM) 73.3 seconds *HI* (02/02/17 7:40 PM) 53.6 seconds *HI* (02/02/17 11:03 AM) PTT [22.9-35.8 seconds] MOLECULAR DIAGNOSTIC 1 2 3 Most recent to oldest [Reference Range]: Negative (02/05/17 11:57 AM) C difficile DNA [Negative] BACTERIAL - SEROLOGY 1 2 3 Most recent to oldest [Reference Range]: Positive 1 *ABN* (02/02/17 12:13 AM) MRSA by PCR 1Result Comment: "Significant Findings called to Joleen Coker on 02/02/2017 at 13:31 by MB.Read Back OK." VIRAL - SEROLOGY 1 2 3 Most recent to oldest [Reference Range]: Negative (02/01/17 9:39 PM) Influ A [Negative] Negative (02/01/17 9:39 PM) Influ B [Negative] Immunizations No data available for this section Procedures Procedure Date Related Diagnosis Body Site Mulitple Foot Sugeries Umbilical Hernia repair Social History Social History Type Response Alcohol Current, Type Wine. Freque ncy: 1-2 times per month. Previous treatment: None. Smoking Status Never smoker; Exposure to T obacco Smoke None; Cigarette Smoking Last 365 Days No; Reg Smoking Cessation Counseli ng No Assessment and Plan Extracted from: Title: [facility] Author: Afshin Lopez MD Date : 02/10/17 Impression and Plan Impression: - Bacteremia - MSSA mitral valve endocarditis - Diabetic foot infection - Acute systolic congestive heart failur e - NSVT - paroxysmal atrial fibrillation - anemia - LBBB - DM with Charcot's foot - PAD - LE arterial Doppler concerning f or significant BLE stenoses. Plan: - repeat cultures remain negative thus f ar. Coronary angiography 02/08/17 showed diffuse CAD in very small < 2 mm vessels. Medical management for now. - cont ASA/Plavix - LVEDP elevated - Stop IV fluids. Cont Lasix 20 bid. Will give bolus of 40mg IV once this morning. - Continue antibiotics per ID - Continue Toprol, lisinopril, aldactone , ASA, and statin - Having recurrent PAF - back in SR now. Keep K > 4 and Mg > 2. CHADS-VASc = 3. Recommend low dose ASA, plavix 75, and Eliquis 5mg bid for primary stroke prevention. - If R foot infection doesn't heal, may need to consider LE angiogram with consideration for ballon angioplasy and/or stenting. Monitor for now. - Awaiting SNF placement for 6-week cour se of abx. Extracted from: Title: Clinical Document Author: Thee Mccoy MD Krishan e: 02/01/17 History and Physical Attending: Kai De Leon MDPhone: Service: Emergency Medicine Code status: None Specified=FULL CODE Reason for Admission: sob Working DRG: None Documented Isolation: None Documented Consulting Physicians: (none on file) CC: Lethargy HPI: This is a 66-year-old woman with below past medical history who presents with 2 day history of altered mental status and right foot erythema. Family became worried when patient did not answer their phone calls, she normally answers all the time. They found her to be lethargic. She also complained of subjective fever/chills and rigors. They noted right foot erythema, no drainage seen, minimal pain. Patient is unaware of any spider/insect bites, stepping on any sharp objects, or trauma to the foot. She also complains of chest diffuse chest spasms that radiate to the abdomen that started a day ago, has been constant and moderate in intensity. It is independent of activity, nothing else aggravates or alleviates the pain. She has shortness of breath with wheezing, has history of asthma, symptoms improved with inhalers. Nausea but no vomiting, also has been diaphoretic. PMHx: DM asthma LBBB hiatal hernia PSHx: Umbilical hernia repair bilateral foot surgeries toe amputation x 2 FHx: father had MN at age 90 SHx: Occasinal EtOH Denies tobacco, illicit drugs Meds: See medicine reconciliation Medication List Active Medications Ordered heparin: 3,600 unit, 3.6 mL, IVP, ONCE. heparin: Pharmacy To Manage, IVP, PRN, PRN: Heparin Protocol. heparin: Pharmacy To Manage, IVP, PRN, PRN: Heparin Protocol. heparin 25,000 unit [12 unit/kg/hr] + Premix Diluent Dextrose 5% 500 mL: 14.53 ml/hr, IV, Stop: 03/03/17 21:43:00 CDT. Insulin regular: 10 unit, 0.1 mL, IVP, ONCE. sodium chloride: 10 mL, IVP, PRN, PRN: Line Flush. vancomycin + sodium chloride 0.9% 500 mL INJ (for IV set) 500 mL: 1,750 mg, 250 ml/hr, IVPB, ONCE. Medications Inactivated in the Last 72 Hours acetaminophen: 650 mg, 2 tab, PO, ONCE. acetaminophen: 650 mg, 2 tab, PYXIS, ONCE. aspirin: 324 mg, 4 tab, CHEW, ONCE. aspirin: 324 mg, 4 tab, PYXIS, ONCE. cefepime: 1 gm, PYXIS, ONCE. cefepime + sodium chloride 0.9% INJ 100 mL: 1 gm, 200 ml/hr, IVPB, ONCE. heparin: 10,000 unit, 10 mL, PYXIS, ONCE. heparin: 25,000 unit, PYXIS, ONCE. ondansetron: 8 mg, 2 tab, PO, ONCE. ondansetron: 8 mg, 2 tab, PYXIS, ONCE. Sodium Chloride 0.9% IV: 2,000 mL, 1818.18 ml/hr, IV, ONCE. Sodium Chloride 0.9% IV: 2,000 mL, PYXIS, ONCE. Sodium Chloride 0.9% IV: 100 mL, PYXIS, ONCE. Allergies: IODINE, GYNOPTIC EYE DROPS, Food Shellfish(Iodine,Miscellaneous Routes,granules) ROS: See HPI. All other systems reviewed by myself are negative unless noted above. Physical Exam: VitalsTmp(F)[id number] 02/01 21:36----[id number]--- 02/01 20:[id number]--- 24 Hr Tmax: 102.8F (39.33c) at 02/01 20: 28Vital Signs are the last 5 in the past 48 hours. General: NAD, nontoxic appearing HEENT: NCAT, PERRL, MMM, oropharynx is clear, no LAD, no thyromegaly Cardiovascular: RRR, S1S2, no murmurs/rubs/gallops, 2+ bilateral carotid pulses Respiratory: good respiratory effort, CTAB Abdomen: soft, +BS, NT/ND Extremities: Right medial and plantar foot erythema especially around the first digit, there is a small ulcerated area over the plantar region that is nondraining and superficial, erythematous areas warm to touch but nontender to palpation, no induration, there is also an annular erythematous area over the dorsal aspect of the third digit, no LLE edema Skin: See above Neurologic: AAOx3, comprehension and speech intact, CN III-XII grossly intact Musculoskeletal: symmetric strength in all extremities Psych: appropriate affect Rectal/: deferred Labs: 24hr Labs 02/01 2109 Lactic Acid Lvl2.0 Sodium Fcf105 L Potassium Lvl4.2 Chloride Lvl98 CO225 AGAP15.2 Glucose Kfi132 C Creatinine Lvl1.08 BUN18 B/C Ratio17 Total Protein7.2 Albumin Lvl2.9 L Globulin4.3 H A/G Ratio0.7 Calcium Lvl8.6 ALT12 AST16 Alk Phos97 Bili Total1.0 eGFR53 Troponin-I1.36 C WBC17.7 H RBC4.29 Hgb10.8 L Hct33.5 L MCV78.1 L MCH25.1 L MCHC32.1 RDW16.1 H Flfbmxnk023 MPV7.9 Segs84.3 H Monocytes7.1 Lymphocytes8.1 L Basophils0.5 Segs-Bands #15.0 H Lymphocytes #1.4 Monocytes #1.3 H Basophils #0.1 Microcyte1+ PT12.9 INR0.95 PTT33.1 Micro: blood cxs sent Imaging: Chest 1view DX 02/01/17 22:22:50 Impression: No acute cardiopulmonary disease. Signed By: Heaven Higgins MD Foot series DX 02/01/17 22:20:30 IMPRESSION: 1. Posttraumatic/postsurgical changes of the right midfoot and forefoot. 2. No acute bony abnormality of the righ t foot and no radiographic evidence of osteomyelitis. SL: SLEE-PC Signed By: Chad Melchor MD EKG: NSR, LBBB (old) I reviewed all resulted labs, radiology, and any old records that are pertinent. Assessment and Plan: This is a 66-year-old woman who presents with lethargy, chest discomfort, and right foot erythema/swelling. She is found to have glucose 405 without an anion gap along with tachycardia, fever, and leukocytosis with elevated segs. Her troponin is 1.36 and given her chest pain and history of left bundle branch block, must treat for ACS although troponin could also be due to supply demand mismatch from sepsis. tachy, febrile # R foot cellulitis with sepsis: Vancomycin, cefepime, blood cultures sent, can consider podiatry consult # NSTEMI vs supply/demand mismatch: heparin drip, aspirin, trend cardiac enzymes, EKG reviewed, telemetry, pain control, cardiology consult, see above for sepsis treatment # Hyperglycemia without anion gap in a patient with history of T2DM: Continue with insulin pump, IV fluids, regular insulin boluses, sliding scale insulin, check hemoglobin A1c # microcytic anemia: unknown baseline, will monitor #History of asthma: Not in acute exacerbation, breathing treatments as needed Prophylaxis: heparin drip Diet: NPO
--- OUTSIDE RECORDS SUMMARY | 2020-05-06 21:43 | XMS REPORT | Summary of Care ---
Author Author [facility] Organization [facility] Address Unknown Phone Unavailable Encounter [facility] Clifford(FIN) [id number] Date(s): 03/14/19 - 03/14/19 [facility] [address] [place] [address]- [facility] [phone] Discharge Disposition: Home or Self Care Attending Physician: Sheyla aHn MD Referring Physician: Sheyla Han MD Vital Signs Most recent to 1 oldest [Reference Range]: Height 157.48 cm (03/12/19 9:32 AM) Temperature Oral 97.8 DegF [96.4-99.1 DegF] (03/12/19 9:54 AM) Blood Pressure 105/64 mmHg [90-140/60-90 mmHg] (03/12/19 9:54 AM) Respiratory Rate 18 BRMIN [14-20 BRMIN] (03/12/19 9:54 AM) Peripheral Pulse 100 bpm Rate [60-100 bpm] (03/12/19 9:54 AM) Weight 70.483 kg (03/12/19 9:32 AM) Body Mass Index 28.42 m2 (03/12/19 9:32 AM) Problem List Condition Effective Dates Status Health Status Informan t 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)1 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) Asthma(Confirmed) Resolved Other Active atherosclerosis of [place] arteries of extremities, 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) Diabetes(Confirmed) Resolved Diabetic foot Resolved ulcers(Confirmed) 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 Start Date: 03/14/19 Stop Date: 03/14/19 Status: Discontinued apixaban 2.5 mg oral tablet 2.5 mg, PO, Q12H Start Date: 03/14/19 Status: Ordered atorvastatin 40 mg oral tablet 40 mg = 1 tab, PO, Daily Start Date: 03/14/19 Status: Ordered clindamycin 300 mg, PO, Daily Start Date: 03/14/19 Status: Ordered ferrous gluconate 324 mg oral tablet 324 mg = 1 tab, PO, TID Start Date: 03/14/19 Status: Ordered furosemide 20 mg oral tablet 20 mg = 1 tab, PO, Daily Start Date: 03/14/19 Status: Ordered morphine Sulfate 2 mg, 1 mL, Route: IVP, Drug form: SOLN, Q2H, Dosing Weight 70.483, kg, PRN Pain Score 4-6, Start date: 03/14/19 14:23:00 CDT, Duration: 30 day, Stop date: 04/25 14:22:00 CDT Start Date: 03/14/19 Stop Date: 03/14/19 Status: Discontinued nitroglycerin SL Tab 0.4 mg, 1 tab, Route: SL, Drug form: TAB, Q5Min, Dosing Weight 70.483, kg, PRN C hest Pain, Start date: 03/14/19 14:23:00 CDT, Duration: 3 doses or times, Stop d ate: Limited # of times Notes: (Same as:Nitroquick, Nitrostat)"Do Not Crush" Sublingual tablet Start Date: 03/14/19 Stop Date: 03/14/19 Status: Discontinued Moneta 5/325 oral tablet 1 tab, PO, Q6H, PRN Pain Score 1-5, 0 Refill(s) Start Date: 03/14/19 Status: Ordered predniSONE 20 mg oral tablet 60 mg = 3 tab, PO, BID Start Date: 03/14/19 Status: Ordered Sodium Chloride 0.9% IV 500 mL 500 mL, Rate: 125 ml/hr, Infuse over: 4 hr, Route: IV, Dosing Weight 70.483 kg, Total Volume: 500, Start date: 03/14/19 14:23:00 CDT, Duration: 10 hr, Stop date : 03/15/19 0:22:00 CDT, 1.78, m2 Start Date: 03/14/19 Stop Date: 03/14/19 Status: Discontinued spironolactone 50 mg oral tablet 50 mg = 1 tab, PO, Daily Start Date: 03/14/19 Status: Ordered Ventolin HFA 90 mcg/inh inhalation aerosol with adapter 2 puff, INHALATION, QID Start Date: 03/14/19 Status: Ordered Results Most recent to 1 oldest [Reference Range]: Neutrophils # 13.8 K/CMM [1.5-8.1 K/CMM] *HI* (03/14/19 12:48 PM) Lymphocytes # 1.0 K/CMM [1.0-5.5 K/CMM] (03/14/19 12:48 PM) Monocytes # [0.0-0.8 0.6 K/CMM K/CMM] (03/14/19 12:48 PM) eGFR 51 mL/min/1.73m2 1 *NA* (03/14/19 12:48 PM) A/G Ratio [0.7-1.6] 0.7 (03/14/19 12:48 PM) Albumin Lvl [3.5-5.0 3.3 g/dL g/dL] *LOW* (03/14/19 12:48 PM) Alk Phos [39-136 108 unit/L unit/L] (03/14/19 12:48 PM) ALT [0-65 unit/L] 15 unit/L (03/14/19 12:48 PM) AGAP [10.0-20.0 15.2 mEq/L mEq/L] (03/14/19 12:48 PM) AST [0-37 unit/L] 10 unit/L (03/14/19 12:48 PM) B/C Ratio [6-25] 24 (03/14/19 12:48 PM) Basophils [0.0-1.0 0.3 % %] (03/14/19 12:48 PM) BUN [7-22 mg/dL] 26 mg/dL *HI* (03/14/19 12:48 PM) Calcium Lvl 9.8 mg/dL [8.5-10.5 mg/dL] (03/14/19 12:48 PM) Chloride Lvl [95-109 98 mEq/L mEq/L] (03/14/19 12:48 PM) CO2 [24-32 mEq/L] 24 mEq/L (03/14/19 12:48 PM) Creatinine Lvl 1.10 mg/dL [0.50-1.40 mg/dL] (03/14/19 12:48 PM) Globulin [2.7-4.2 5.0 g/dL g/dL] *HI* (03/14/19 12:48 PM) Glucose Lvl [70-99 298 mg/dL mg/dL] *HI* (03/14/19 12:48 PM) Hct [36.0-48.0 %] 38.2 % (03/14/19 12:48 PM) Hgb [12.0-16.0 g/dL] 12.4 g/dL (03/14/19 12:48 PM) INR [0.85-1.17] 0.96 (03/14/19 12:48 PM) Potassium Lvl 5.2 mEq/L [3.5-5.1 mEq/L] *HI* (03/14/19 12:48 PM) Lymphocytes 6.3 % [20.0-40.0 %] *LOW* (03/14/19 12:48 PM) MCH [27.0-31.0 pg] 33.3 pg *HI* (03/14/19 12:48 PM) MCHC [32.0-36.0 32.4 g/dL g/dL] (03/14/19 12:48 PM) MCV [80.0-98.0 fL] 102.7 fL *HI* (03/14/19 12:48 PM) Magnesium Lvl 2.2 mg/dL [1.8-2.4 mg/dL] (03/14/19 12:48 PM) Monocytes [2.0-12.0 3.6 % %] (03/14/19 12:48 PM) MPV [7.4-10.4 fL] 7.2 fL *LOW* (03/14/19 12:48 PM) Sodium Lvl [135-145 132 mEq/L mEq/L] *LOW* (03/14/19 12:48 PM) Platelet [133-450 442 K/CMM K/CMM] (03/14/19 12:48 PM) Segs [45.0-75.0 %] 89.8 % *HI* (03/14/19 12:48 PM) Total Protein 8.3 g/dL [6.4-8.4 g/dL] (03/14/19 12:48 PM) PT [12.0-14.7 12.6 seconds seconds] (03/14/19 12:48 PM) PTT [22.9-35.8 34.2 seconds seconds] (03/14/19 12:48 PM) RBC [4.20-5.40 3.72 M/CMM M/CMM] *LOW* (03/14/19 12:48 PM) RDW [11.5-14.5 %] 14.0 % (03/14/19 12:48 PM) Bili Total [0.2-1.3 0.6 mg/dL mg/dL] (03/14/19 12:48 PM) WBC [3.7-10.4 K/CMM] 15.3 K/CMM *HI* (03/14/19 12:48 PM) 1Result Comment: The eGFR is calculated using [...] be mul tiplied by the estimated BMI. Immunizations Not Given Vaccine Date Status Refusal [...] Reg Smoking Cessation Counseling No entered on: 03/12/19 Assessment and Plan No data available for this section
--- OUTSIDE RECORDS SUMMARY | 2020-05-06 21:44 | XMS REPORT | Summary of Care ---
Author Author [facility] Organization [facility] Address Unknown Phone Unavailable Encounter BRAXTON Horton(SHOAIB) [id number] Date(s): 03/26/19 - 03/26/19 [facility] [address] [place] [address]- [phone] Discharge Disposition: Home or Self Care Attending Physician: Sheyla Han MD Referring Physician: Sheyla Han MD Vital Signs 1 2 3 Most recent to oldest [Reference Range]: 157.48 cm (03/25/19 2:47 PM) Height 98.0 DegF (03/26/19 7:18 AM) Temperature Oral [96.4-99.1 DegF] 113/69 mmHg (03/26/19 12:13 PM) 114/66 mmHg (03/26/19 11:45 AM) 113/69 mmHg (03/26/19 11:12 AM) Blood Pressure [90-140/60-90 mmHg] 16 BRMIN (03/26/19 12:13 PM) 16 BRMIN (03/26/19 11:45 AM) 16 BRMIN (03/26/19 11:12 AM) Respiratory Rate [14-20 BRMIN] 84 bpm (03/26/19 7:18 AM) 80 bpm (03/25/19 2:47 PM) Peripheral Pulse Rate [60-100 bpm] 70.227 kg (03/25/19 2:47 PM) Weight 28.32 m2 (03/25/19 2:47 PM) Body Mass Index Problem List Condition Effective Dates Status Health Status Informan t 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)1 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) Asthma(Confirmed) Active Other Active atherosclerosis of [place] arteries of extremities, 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) Coronary artery Active disease(Confirmed) Diabetes(Confirmed) Active Diabetic foot Resolved ulcers(Confirmed) custodial (current) Active use of insulin(Confirmed) Charcot-Jenny Resolved disease(Confirmed) Hiatal Active hernia(Confirmed) Hyperlipidemia(Confi Active rmed) High blood pressure Active disorder(Confirmed) Hypertension with Active Hypertensive HF and CKD(Confirmed) Left bundle-branch Active block, unspecified(Confirme d) Block, bundle Active branch, left(Confirmed) Mild intermittent Active stable asthma(Confirmed) [...] Route: PO, Drug Form: TAB, Dosing Weight 70.227, kg, Q4H, PRN Pain Score 4-6, Start date: 03/26/19 9:53:00 CDT, Duration: 30 day, Stop date: 04/25/19 9:5 2:00 CDT Notes: (Same as: [place] 325/5) Do not exceed 4gm/day of acetaminophen. Start Date: 03/26/19 Stop Date: 03/26/19 Status: Discontinued ANES acetaminophen 1,000 mg, 2 tab, Route: PO, Drug form: TAB, ONCE, Dosing Weight 70.227, kg, PRN Pain Score 1-3, Start date: 03/26/19 8:03:00 CDT Notes: Max acetaminophen 4000 mg/day (4 gm/day). (Same as: Tylenol Extra Streng th) Start Date: 03/26/19 Stop Date: 03/26/19 Status: Discontinued ANES flumazenil 0.2 mg, 2 mL, Route: IVP, Drug form: INJ, PRN, Dosing Weight 70.227, kg, PRN Michael zodiazepine Reversal, Initial dose, Start date: 03/26/19 8:03:00 CDT, Stop date: 03/26/19 23:00:00 CDT Notes: (Same as: Romazicon) Start Date: 03/26/19 Stop Date: 03/26/19 Status: Discontinued ANES ketOROLAC 15 mg, 1 mL, Route: IVP, Drug form: INJ, ONCE, Dosing Weight 70.227, kg, Start d ate: 03/26/19 8:03:00 CDT, Stop date: 03/26/19 8:03:00 CDT Notes: (Same as:Toradol) IV bolus must be given >15 seconds. Give IM administration slowly and deeply into the muscle. Not for use > 4 days. Start Date: 03/26/19 Stop Date: 03/26/19 Status: Ordered ANES metoprolol 1 mg, 1 mL, Route: IVP, Drug form: INJ, Q5Min, Dosing Weight 70.227, kg, PRN Oth er -See Comment, Start date: 03/26/19 8:03:00 CDT, Duration: 5 doses or times, S top date: 03/26/19 23:00:00 CDT Notes: (Same as: Lopressor)Push over 2 minutes Start Date: 03/26/19 Stop Date: 03/26/19 Status: Discontinued ANES morphine Sulfate 4 mg, 1 mL, Route: IVP, Drug form: SOLN, Q5Min, Dosing Weight 70.227, kg, PRN Pa in Score 7-10, Start date: 03/26/19 8:03:00 CDT, Duration: 3 doses or times, Sto p date: 03/26/19 23:00:00 CDT Notes: (Same as:MORPhine Sulfate) Start Date: 03/26/19 Stop Date: 03/26/19 Status: Discontinued ANES morphine Sulfate 2 mg, 0.5 mL, Route: IVP, Drug form: SOLN, Q5Min, Dosing Weight 70.227, kg, PRN Pain Score 4-6, Start date: 03/26/19 8:03:00 CDT, Duration: 5 doses or times, St op date: 03/26/19 23:00:00 CDT Notes: (Same as:MORPhine Sulfate) Start Date: 03/26/19 Stop Date: 03/26/19 Status: Discontinued ANES naloxone 0.4 mg, 1 mL, Route: IVP, Drug form: INJ, Q2MIN, Dosing Weight 70.227, kg, PRN N arcotic Reversal, Start date: 03/26/19 8:03:00 CDT, Duration: 8 doses or times, Stop date: 03/26/19 23:00:00 CDT Notes: Same as Narcan Start Date: 03/26/19 Stop Date: 03/26/19 Status: Discontinued ANES ondansetron 4 mg, 2 mL, Route: IVP, Drug form: INJ, ONCE, Dosing Weight 70.227, kg, PRN Naus ea & Vomiting, Start date: 03/26/19 8:03:00 CDT Notes: (Same as: Faustina) MEDICATION WASTE Product Size: 4 mgProduct Was julio: ___ mg Start Date: 03/26/19 Stop Date: 03/26/19 Status: Discontinued ANES oxyCODONE 2.5 mg, 2.5 mL, Route: PO, Drug form: LIQ, Q4H, Dosing Weight 70.227, kg, PRN Pa in Score 4-6, Start date: 03/26/19 8:03:00 CDT, Stop date: 03/26/19 23:00:00 CDT Notes: (Same as: 'Roxicodone) Start Date: 03/26/19 Stop Date: 03/26/19 Status: Discontinued ceFAZolin (ANES) Route: IV, Drug form: INJ, ONCE, Stop date: 03/26/19 9:10:00 CDT Start Date: 03/26/19 Stop Date: 03/26/19 Status: Completed ceFAZolin + sterile water 20 mL 2 gm, Route: IVP, ONCALL, Dosing Weight 70.483, kg, (Patients weighing < 120 kg), Start date: 03/26/19 11:00:00 CDT, Duration: 1 doses or times, ABX Ind ication: Surgical Prophylaxis Notes: (Same As: Morgan Bright) MEDICATION WASTE Product Size: 1000 mgP roduct Wasted: ___ mg Start Date: 03/26/19 Stop Date: 03/26/19 Status: Completed diphenhydrAMINE 50 mg, 1 mL, Route: IVP, Drug form: INJ, ONCE, Dosing Weight 70.483, kg, PRN Pro cedure, 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 Start Date: 03/21/19 Stop Date: 03/26/19 Status: Completed fentaNYL (ANES) Route: IV, Drug form: INJ, ONCE, Stop date: 03/26/19 9:10:00 CDT Start Date: 03/26/19 Stop Date: 03/26/19 Status: Completed heparin (ANES) Route: IV, Drug form: INJ, ONCE, Stop date: 03/26/19 9:05:00 CDT Start Date: 03/26/19 Stop Date: 03/26/19 Status: Completed Lactated Ringers Injection IV (ANES) 1000 mL Route: IV, Total Volume: 1,000, Start date: 03/26/19 8:10:00 CDT, Stop date: 9:10:00 CDT Start Date: 03/26/19 Stop Date: 03/26/19 Status: Completed lidocaine (ANES) Route: IV, Drug form: INJ, ONCE, Stop date: 03/26/19 9:10:00 CDT Start Date: 03/26/19 Stop Date: 03/26/19 Status: Completed methylPREDNISolone SODium SUCCinate 125 mg, 2 mL, Route: IVP, Drug form: INJ, ONCE, Dosing Weight 70.483, kg, on alexandra l to OR, Start date: 03/21/19 9:52:00 CDT, Stop date: 03/21/19 9:52:00 CDT Notes: (Same as:Solu-MEDROL, A-Methapred) Start Date: 03/21/19 Stop Date: 03/26/19 Status: Completed midazolam (ANES) Route: IV, Drug form: SOLN, ONCE, Stop date: 03/26/19 9:05:00 CDT Start Date: 03/26/19 Stop Date: 03/26/19 Status: Completed morphine Sulfate 2 mg, 1 mL, Route: IVP, Drug form: SOLN, Q2H, Dosing Weight 70.227, kg, PRN Pain Score 4-6, Start date: 03/26/19 9:53:00 CDT, Duration: 30 day, Stop date: 04/25 9:52:00 CDT Start Date: 03/26/19 Stop Date: 03/26/19 Status: Discontinued nitroglycerin SL Tab 0.4 mg, 1 tab, Route: SL, Drug form: TAB, Q5Min, Dosing Weight 70.227, kg, PRN C hest Pain, Start date: 03/26/19 9:53:00 CDT, Duration: 3 doses or times, Stop da te: Limited # of times Notes: (Same as:Nitroquick, Nitrostat)"Do Not Crush" Sublingual tablet Start Date: 03/26/19 Stop Date: 03/26/19 Status: Discontinued phenylephrine (ANES) Route: IV, Drug form: INJ, ONCE, Stop date: 03/26/19 9:10:00 CDT Start Date: 03/26/19 Stop Date: 03/26/19 Status: Completed propofol (ANES) 10 mg Route: IV, Drug form: INJ, Start date: 03/26/19 8:10:00 CDT, Stop date: 03/26/19 9:10:00 CDT Start Date: 03/26/19 Stop Date: 03/26/19 Status: Completed Sodium Chloride 0.9% IV 1,000 mL 1,000 mL, Rate: 100 ml/hr, Infuse over: 10 hr, Route: IV, Dosing Weight 70.227 k g, Total Volume: 1,000, Start date: 03/26/19 6:26:00 CDT, Duration: 12 hr, Stop date: 03/26/19 18:25:00 CDT, 1.78, m2 Start Date: 03/26/19 Stop Date: 03/26/19 Status: Discontinued Sodium Chloride 0.9% IV 500 mL 500 mL, Rate: 125 ml/hr, Infuse over: 4 hr, Route: IV, Dosing Weight 70.227 kg, Total Volume: 500, Start date: 03/26/19 9:53:00 CDT, Duration: 10 hr, Stop date: 03/26/19 19:52:00 CDT, 1.78, m2 Start Date: 03/26/19 Stop Date: 03/26/19 Status: Discontinued Results Most recent to 1 oldest [Reference Range]: Neutrophils # 8.8 K/CMM [1.5-8.1 K/CMM] *HI* (03/25/19 3:17 PM) Lymphocytes # 1.4 K/CMM [1.0-5.5 K/CMM] (03/25/19 3:17 PM) Monocytes # [0.0-0.8 0.9 K/CMM K/CMM] *HI* (03/25/19 3:17 PM) Eosinophils # 0.3 K/CMM [0.0-0.5 K/CMM] (03/25/19 3:17 PM) Basophils # [0.0-0.2 0.1 K/CMM K/CMM] (03/25/19 3:17 PM) eGFR 60 mL/min/1.73m2 1 *NA* (03/25/19 3:17 PM) AGAP [10.0-20.0 11.3 mEq/L mEq/L] (03/25/19 3:17 PM) Basophils [0.0-1.0 0.5 % %] (03/25/19 3:17 PM) BUN [7-22 mg/dL] 17 mg/dL (03/25/19 3:17 PM) Calcium Lvl 9.3 mg/dL [8.5-10.5 mg/dL] (03/25/19 3:17 PM) Chloride Lvl [95-109 102 mEq/L mEq/L] (03/25/19 3:17 PM) CO2 [24-32 mEq/L] 28 mEq/L (03/25/19 3:17 PM) Creatinine Lvl 0.96 mg/dL [0.50-1.40 mg/dL] (03/25/19 3:17 PM) Eosinophils [0.0-4.0 2.2 % %] (03/25/19 3: PM) Glucose Lvl [70-99 160 mg/dL mg/dL] *HI* (03/25/19 3: PM) Hct [36.0-48.0 %] 35.0 % *LOW* (03/25/19 3: PM) Hgb [12.0-16.0 g/dL] 11.5 g/dL *LOW* (03/25/19 3: PM) INR [0.85-1.17] 1.02 (03/25/19 3: PM) Potassium Lvl 5.3 mEq/L [3.5-5.1 mEq/L] *HI* (03/25/19 3: PM) Lymphocytes 12.3 % [20.0-40.0 %] *LOW* (03/25/19 3:17 PM) Macrocyte [None 1+ Seen] *ABN* (03/25/19 3: PM) MCH [27.0-31.0 pg] 33.5 pg *HI* (03/25/19 3: PM) MCHC [32.0-36.0 32.9 g/dL g/dL] (03/25/19 3:17 PM) MCV [80.0-98.0 fL] 102.0 fL *HI* (03/25/19 3: PM) Monocytes [2.0-12.0 7.7 % %] (03/25/19 3:17 PM) MPV [7.4-10.4 fL] 7.3 fL *LOW* (03/25/19 3:17 PM) Sodium Lvl [135-145 136 mEq/L mEq/L] (03/25/19 3:17 PM) Platelet [133-450 507 K/CMM K/CMM] *HI* (03/25/19 3:17 PM) Segs [45.0-75.0 %] 77.3 % *HI* (03/25/19 3:17 PM) PT [12.0-14.7 13.2 seconds seconds] (03/25/19 3:17 PM) PTT [22.9-35.8 33.7 seconds seconds] (03/25/19 3:17 PM) RBC [4.20-5.40 3.43 M/CMM M/CMM] *LOW* (03/25/19 3:17 PM) RDW [11.5-14.5 %] 14.2 % (03/25/19 3:17 PM) WBC [3.7-10.4 K/CMM] 11.4 K/CMM *HI* (03/25/19 3:17 PM) 1Result Comment: The eGFR is calculated [...] Status Amputation Completed Amputation1 Completed Angioplasty Completed Catheterization Completed Foot incision Completed Repair of umbilical hernia Completed Umbilical Hernia repair Completed 12nd toe amputated Social History Social History Type Response Alcohol Current, Type Wine. Freque ncy: 1-2 times per month. Previous treatment: None. Alcohol use interferes with work or home: No. Smoking Status Never smoker; Previous marquita tment: None; Exposure to Tobacco Smoke None; Cigarette Smoking Last 365 Days No; Reg Smoking Cessation Counseling No entered on: 03/25/19 Assessment and Plan No data available for this section
--- OUTSIDE RECORDS SUMMARY | 2020-05-06 21:44 | XMS REPORT | Summary of Care ---
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 Other: , 2 children. Smoking Status Never smoker; Previous marquita tment: None; Exposure to Tobacco Smoke None; Cigarette Smoking Last 365 Days No; Reg Smoking Cessation Counseling No entered on: 05/23/19 Assessment and Plan No data available for this section
--- OUTSIDE RECORDS SUMMARY | 2020-05-06 21:44 | XMS REPORT | Summary of Care ---
Author Author [facility] Primary [facility] Organization [facility] Address Unknown Phone Unavailable Encounter HQ Clifford(FIN) [id number] Date(s): 02/21/19 - 02/21/19 [facility] [address] [facility] [address] [place], [place] [address]- [phone] Discharge Disposition: Home or Self Care Attending Physician: Dallas Ryan MD Vital Signs Most recent to 1 oldest [Reference Range]: Height 160.02 cm (02/21/19 3:13 PM) Temperature Oral 98.2 DegF [96.4-99.1 DegF] (02/21/19 3:13 PM) Blood Pressure 124/78 mmHg [90-140/60-90 mmHg] (02/21/19 3:13 PM) Peripheral Pulse 78 bpm Rate [60-100 bpm] (02/21/19 3:13 PM) Weight 71.364 kg (02/21/19 3:13 PM) Body Mass Index 27.87 m2 (02/21/19 3:13 PM) Problem List Condition Effective Dates Status Health Status Informan t 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)1 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) Asthma(Confirmed) Resolved Other Active atherosclerosis of [place] arteries of extremities, 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) Diabetic foot Resolved ulcers(Confirmed) shelter (current) Active use of insulin(Confirmed) Charcot-Jenny Resolved disease(Confirmed) Hypertension with Active Hypertensive HF and CKD(Confirmed) Left bundle-branch Active block, unspecified(Confirme d) Mild intermittent Active stable asthma(Confirmed) MRSA(Confirmed)2, 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 Allergies, Adverse Reactions, Alerts Substance Reaction Severity Status GYNOPTIC EYE DROPS Active Food Iodine Active Food Shellfish Iodine,Miscellaneous Routes,granules Active iodine1, 2 Active 1Replaced free text allergy 2Added as Codified Medications Advair Diskus 500 mcg-50 mcg inhalation powder 1 puff, INHALATION, BID, # 1 ea, 3 Refill(s), Pharmacy: [id number] Start Date: 02/21/19 Stop Date: 06/21/19 Status: Ordered Blood Glucose Monitor 1 ea, MISC, Daily, Freestyle Cooper Monitor to check sugars three times a day as directed for diabetes E11.59 and Insulin use z79.4, # 1 ea, 0 Refill(s) Start Date: 02/21/19 Status: Ordered Blood Glucose Test Strips 1 unit =, TOP, Before Breakfast, Freestyle Cooper 14-Day Continuous Glucose Monit oring Patch to check sugars three times a day as directed for diabetes E11.59 an d Insulin use z79.4, # 100 unit, 3 Refill(s) Start Date: 02/21/19 Status: Ordered clopidogrel 75 mg oral tablet 75 mg = 1 tab, PO, Daily, # 90 tab, 3 Refill(s), Pharmacy: [id number] Start Date: 02/21/19 Status: Ordered ProAir HFA 90 mcg/inh inhalation aerosol with adapter 2 puff, INHALER, Q4H, PRN wheezing, coughing, or shortness of breath, # 1 ea, 1 Refill(s), Pharmacy: [facility] [id number] Start Date: 02/21/19 Status: Ordered zolpidem 10 mg oral tablet 10 mg = 1 tab, PO, Bedtime, as needed for insomnia, # 30 tab, 1 Refill(s) Start Date: 02/21/19 Stop Date: 02/21/19 Status: Discontinued zolpidem 5 mg oral tablet 5 mg = 1 tab, PO, Bedtime, PRN Sleep, # 30 tab, 1 Refill(s) Start Date: 02/21/19 Status: Ordered Results No data available for [...] Reg Smoking Cessation Counseling No entered on: 02/21/19 Assessment and Plan No data available for this section
--- OUTSIDE RECORDS SUMMARY | 2020-05-06 21:44 | XMS REPORT | Summary of Care ---
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) - Essential (primary) hypertension (Final) - Hyperlipidemia, unspecified (Final) - Atherosclerotic heart disease of [place] coronary artery without angina pectoris (Final) - Left bundle-branch block, unspecified (Final) - Paroxysmal atrial fibrillation (Final) - Acquired absence of other right toe(s) (Final) - 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) - shelter (current) use of antithrombotics/antiplatelets (Final) - 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) - Other usp (current) drug therapy (Final) - Discharge Disposition: Home or Self Care Attending Physician: Sheyla Han MD Referring Physician: Sheyla Han MD Vital Signs Most recent to 1 2 oldest [Reference Range]: Height 160.02 cm (08/05/18 9:49 AM) Temperature Oral 98.8 DegF [96.4-99.1 DegF] (08/05/18 10:09 AM) Blood Pressure 104/93 mmHg 101/56 mmHg [90-140/60-90 mmHg] (08/08/18 12:35 PM) (08/05/18 10:09 AM ) Respiratory Rate 20 BRMIN 18 BRMIN [14-20 BRMIN] (08/08/18 12:35 PM) (08/05/18 10:09 AM) Peripheral Pulse 81 bpm Rate [60-100 bpm] (08/05/18 10:09 AM) Weight 70.909 kg (08/05/18 9:49 AM) Body Mass Index 27.69 m2 (08/05/18 9:49 AM) Problem List Condition Effective Dates Status Health Status Informan t 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 Start Date: 08/08/18 Stop Date: 08/08/18 Status: Discontinued Humalog SUB-Q, 0 Refill(s) Start Date: 08/05/18 Status: Ordered Insulin Pump Misc/Other 1 ea, MISC, ONCE, Will require a certificate of medical necessity for reimbursme nt from Medicare/insurance, # 1 ea, 0 Refill(s) Start Date: 08/05/18 Status: Ordered morphine Sulfate 2 mg, 2 mL, Route: IVP, Drug form: SOLN, Q2H, Dosing Weight 70.909, kg, PRN Pain Score 4-6, Start date: 08/08/18 15:19:00 CDT, Duration: 30 day, Stop date: 10/25 15:18:00 OCEAN FISHING GUIDE Notes: Preservative free. (Same as: Morphine Sulfate-PF) Start Date: 08/08/18 Stop Date: 08/08/18 Status: Discontinued nitroglycerin SL Tab 0.4 mg, 1 tab, Route: SL, Drug form: TAB, Q5Min, Dosing Weight 70.909, kg, PRN C hest Pain, Start date: 08/08/18 15:19:00 CDT, Duration: 3 doses or times, Stop d ate: Limited # of times Notes: (Same as:Nitroquick, Nitrostat)"Do Not Crush" Sublingual tablet Start Date: 08/08/18 Stop Date: 08/08/18 Status: Discontinued Sodium Chloride 0.9% (Bolus) IV 70.909 mg, Route: IV, ONCE, Dosing Weight 70.909 kg, Start date: 08/08/18 9:36:0 0 CDT, Stop date: 08/08/18 9:36:00 CDT Start Date: 08/08/18 Stop Date: 08/08/18 Status: Completed Sodium Chloride 0.9% IV 1,000 mL 1,000 mL, Rate: 125 ml/hr, Infuse over: 8 hr, Route: IV, Dosing Weight 70.909 kg , Total Volume: 1,000, Start date: 08/08/18 9:33:00 CDT, Duration: 30 day, Stop date: 09/07/18 9:32:00 OCEAN FISHING GUIDE, 1.8, m2 Start Date: 08/08/18 Stop Date: 08/08/18 Status: Discontinued Sodium Chloride 0.9% IV 500 mL 500 mL, Rate: 125 ml/hr, Infuse over: 4 hr, Route: IV, Dosing Weight 70.909 kg, Total Volume: 500, Start date: 08/08/18 15:19:00 CDT, Duration: 10 hr, Stop date : 08/09/18 1:18:00 CDT, 1.8, m2 Start Date: 08/08/18 Stop Date: 08/08/18 Status: Discontinued Results Most recent to 1 oldest [Reference Range]: Neutrophils # 7.5 K/CMM [1.5-8.1 K/CMM] (08/08/18 1:15 PM) Lymphocytes # 1.1 K/CMM [1.0-5.5 K/CMM] (08/08/18 1:15 PM) Monocytes # [0.0-0.8 0.6 K/CMM K/CMM] (08/08/18 1:15 PM) eGFR 49 mL/min/1.73m2 1 *NA* (08/08/18 1:15 PM) A/G Ratio [0.7-1.6] 0.8 (08/08/18 1:15 PM) Albumin Lvl [3.5-5.0 3.6 g/dL g/dL] (08/08/18 1:15 PM) Alk Phos [39-136 104 unit/L unit/L] (08/08/18 1:15 PM) ALT [0-65 unit/L] 16 unit/L (08/08/18 1:15 PM) AGAP [10.0-20.0 15.1 mEq/L mEq/L] (08/08/18 1:15 PM) AST [0-37 unit/L] 15 unit/L (08/08/18 1:15 PM) B/C Ratio [6-25] 21 (08/08/18 1:15 PM) Basophils [0.0-1.0 0.2 % %] (08/08/18 1:15 PM) BUN [7-22 mg/dL] 24 mg/dL *HI* (08/08/18 1:15 PM) Calcium Lvl 9.2 mg/dL [8.5-10.5 mg/dL] (08/08/18 1:15 PM) Chloride Lvl [95-109 98 mEq/L mEq/L] (08/08/18 1:15 PM) CO2 [24-32 mEq/L] 26 mEq/L (08/08/18 1:15 PM) Creatinine Lvl 1.14 mg/dL [0.50-1.40 mg/dL] (08/08/18 1:15 PM) Globulin [2.7-4.2 4.4 g/dL g/dL] *HI* (08/08/18 1:15 PM) Glucose Lvl [70-99 332 mg/dL mg/dL] *HI* (08/08/18 1:15 PM) Hct [36.0-48.0 %] 37.8 % (08/08/18 1:15 PM) Hgb [12.0-16.0 g/dL] 12.9 g/dL (08/08/18 1:15 PM) Hgb A1C [<=5.6 %] 8.0 % *HI* (08/08/18 1:15 PM) INR [0.85-1.17] 1.01 (08/08/18 1:15 PM) Potassium Lvl 5.1 mEq/L [3.5-5.1 mEq/L] (08/08/18 1:15 PM) Lymphocytes 12.0 % [20.0-40.0 %] *LOW* (08/08/18 1:15 PM) MCH [27.0-31.0 pg] 32.4 pg *HI* (08/08/18 1:15 PM) MCHC [32.0-36.0 34.2 g/dL g/dL] (08/08/18 1:15 PM) MCV [80.0-98.0 fL] 94.8 fL (08/08/18 1:15 PM) Monocytes [2.0-12.0 6.5 % %] (08/08/18 1:15 PM) MPV [7.4-10.4 fL] 7.2 fL *LOW* (08/08/18 1:15 PM) Sodium Lvl [135-145 134 mEq/L mEq/L] *LOW* (08/08/18 1:15 PM) Platelet [133-450 362 K/CMM K/CMM] (08/08/18 1:15 PM) Segs [45.0-75.0 %] 81.3 % *HI* (08/08/18 1:15 PM) Total Protein 8.0 g/dL [6.4-8.4 g/dL] (08/08/18 1:15 PM) PT [12.0-14.7 13.3 seconds seconds] (08/08/18 1:15 PM) PTT [22.9-35.8 30.1 seconds seconds] (08/08/18 1:15 PM) RBC [4.20-5.40 3.98 M/CMM M/CMM] *LOW* (08/08/18 1:15 PM) RDW [11.5-14.5 %] 17.5 % *HI* (08/08/18 1:15 PM) Bili Total [0.2-1.3 1.0 mg/dL mg/dL] (08/08/18 1:15 PM) WBC [3.7-10.4 K/CMM] 9.2 K/CMM (08/08/18 1:15 PM) 1Result Comment: The eGFR is calculated [...]
== END 2020-04-02 22:41 | disposition expired | DRG 871 ==
LOC: ER 17:54 → ERHOLD 03-27 00:22 → IMCU 03-27 01:29
PROC: 0DJ08ZZ Inspection of Upper Intestinal Tract, Via Natural or Artificial Opening Endoscopic (ICD-10-PCS; principal; 2020-03-30 14:00)
DX: A41.9 Sepsis, unspecified organism (principal); L89.304 Pressure ulcer of unspecified buttock, stage 4; I50.43 Acute on chronic combined systolic (congestive) and diastolic (congestive) heart failure; N17.0 Acute kidney failure with tubular necrosis; N39.0 Urinary tract infection, site not specified; N17.9 Acute kidney failure, unspecified; I13.0 Hypertensive heart and chronic kidney disease with heart failure and stage 1 through stage 4 chronic kidney disease, or unspecified chronic kidney disease; Z16.22 Resistance to vancomycin related antibiotics; E11.43 Type 2 diabetes mellitus with diabetic autonomic (poly)neuropathy; K31.84 Gastroparesis; Z79.4 Long term (current) use of insulin; Z11.59 Encounter for screening for other viral diseases; B95.2 Enterococcus as the cause of diseases classified elsewhere; F32.9 Major depressive disorder, single episode, unspecified; F41.9 Anxiety disorder, unspecified; M19.90 Unspecified osteoarthritis, unspecified site; E86.0 Dehydration; E11.40 Type 2 diabetes mellitus with diabetic neuropathy, unspecified; E11.22 Type 2 diabetes mellitus with diabetic chronic kidney disease; N18.9 Chronic kidney disease, unspecified; I48.0 Paroxysmal atrial fibrillation; Z79.01 Long term (current) use of anticoagulants; I25.2 Old myocardial infarction; S91.302A Unspecified open wound, left foot, initial encounter; S91.301A Unspecified open wound, right foot, initial encounter; K59.00 Constipation, unspecified; T18.2XXA Foreign body in stomach, initial encounter; K20.9 Esophagitis, unspecified; E86.1 Hypovolemia; L89.610 Pressure ulcer of right heel, unstageable; L89.626 Pressure-induced deep tissue damage of left heel
CPT/HCPCS: 31500; 36415; 43235; 71045; 74018; 76770; 80048; 80053; 81001; 82550; 82553; 82570; 82948; 83605; 83690; 83735; 83880; 84300; 84443; 84484; 85025; 85610; 85730; 87040; 87086; 87186; 92950; 93005; 93306; 96372; 96375; 96376; 97139; 99251; 99284; J0171; J0692; J1160; J1815; J2250; J2270; J2405; J2543; J2550; J2765; J3480; J7030; J7050; J7070; P9045; U0002